=== PATIENT | female | born 1965 | race Caucasian/White ===

== ENCOUNTER 2019-12-25 13:58 | Outpatient (CLI) | payer OTHER, SELFPAY ==
--- NOTE | 2019-12-25 14:51 | ECG_ITS ---
Measurements Intervals [place] Rate: 73 P: 46 TX: 139 QRS: 18 QRSD: 91 T: 56 QT: 356 QTc: 394 Interpretive Statements SINUS RHYTHM DELAYED PRECORDIAL R/S TRANSITION BORDERLINE T WAVE ABNORMALITY- ANTERIOR LEADS BASELINE ARTIFACT- I, II, III, AVR, AVL, AVF BORDERLINE ECG Electronically Signed On 12-25-2019 15:02:15 CDT by Herberth Romero D.O.
[2019-12-25 15:35] LABS: Basophils Percent Auto 0.4 % (0.2-1.2); Eosinophils Absolute Auto 0.3 K/mm3 (0-0.3); Eosinophils Percent Auto 4.6 % (0-4.4); Hematocrit 41.8 % (37.0-47.0); Hemoglobin 13.7 g/dL (12.0-15.0); Immature Granulocyte Absolute 0.02 K/mm3 (0.00-0.031); Immature Granulocyte Percent A 0.4 % (0-0.5); Lymphocytes Absolute Auto 2.15 K/mm3 (0.9-3.2); Lymphocytes Percent Auto 38.1 % (18.3-44.2); Mean Corpuscular HGB Conc 32.8 g/dl (32-36); Mean Corpuscular Hemoglobin 30.1 pg (26-34); Mean Corpuscular Volume 91.9 fl (80-100); Mean Platelet Volume 9.5 fl (7.4-10.4); Monocytes Absolute Auto 0.4 K/mm3 (0.1-0.6); Monocytes Percent Auto 6.5 % (2.6-8.5); Neutrophils Absolute Auto 2.8 K/mm3 (1.3-6.7); Platelet Count Result 308 k/mm3 (150-375); Red Blood Count 4.55 M/mm3 (4.2-5.4); Red Cell Distribution Width 13.2 % (11.5-14.5); White Blood Count 5.7 K/mm3 (4.5-10.0)
[2019-12-25 15:47] LABS: Glucose 120 mg/dL (65-105)
[2019-12-25 15:49] LABS: Estimated Glomerular Filt Rate > 60
[2019-12-25 17:05] LABS: Hemoglobin A1C 5.3 % (<5.7)
== END 2019-12-25 13:59 | disposition home or self-care (01) ==
PROVIDERS: PCP Family Medicine; Visit Provider Orthopaedic Surgery
DX: M17.12 Unilateral primary osteoarthritis, left knee (principal); R94.31 Abnormal electrocardiogram [ECG] [EKG]
CPT/HCPCS: 36415; 82040; 82565; 82947; 83036; 85025; 87081; 93005

== ENCOUNTER 2020-01-16 00:35 | Outpatient (CLI) | payer OTHER, SELFPAY ==
[2020-01-16 18:03] LABS: SARS-CoV-2 RNA PCR Negative
== END 2020-01-16 00:36 | disposition home or self-care (01) ==
LOC: ANHCOVIDDT 00:35
PROVIDERS: Visit Provider Orthopaedic Surgery
DX: Z01.812 Encounter for preprocedural laboratory examination (principal); Z20.828 Contact with and (suspected) exposure to other viral communicable diseases
CPT/HCPCS: 87635; C9803; U0003

== ENCOUNTER 2020-01-20 14:11 | Observation (INO) | payer OTHER, SELFPAY ==
[2019-12-25 14:12] VITALS: BMI 33.1
[2019-12-25 14:20] VITALS: BP 154/85; PULSE 82; RESP 18; TEMP 36.8; O2SAT 99
[2020-01-19] VITALS (12 sets, daily range): BP systolic 113–160; BP diastolic 60–89; PULSE 61–105; RESP 12–20; TEMP 36.3–36.8; O2SAT 96–100
[2020-01-19] MEDS: LACTATED RINGERS 1,000 ML 30 ML IV CONT ×2 (06:24→10:19)
[2020-01-19] MEDS: ACETAMINOPHEN 500 MG TABLET 1000 MG PO (06:25)
[2020-01-19] MEDS: KETOROLAC 15 MG/ML VIAL (*BKC) IV PUSH ×3 (06:27→17:45)
[2020-01-19] MEDS: TRANEXAMIC ACID 1,000MG/ISO100 1,000 MG/100 ML BAG 200 MG IVPB (06:27)
--- NOTE | 2020-01-19 07:24 | WPDHPUPDATE1 ---
History and Physical Update Update Date/Time: 01/19/20 07:24 History and Physical has been reviewed, including an updated exam of the patient. There are NO changes in the patient's condition. Risks, benefits, and alternatives have been discussed and questions answered. Patient agrees to proceed with procedure.
--- NOTE | 2020-01-19 07:31 | WPDANESPNB ---
Anes - Peripheral Nerve Block Date/Time: 01/19/20 07:31 I have discussed with the patient/family/POA the placement of a peripheral nerve block for post-operative pain management, including associated risks, benefits, complications, and side effects. Alternative methods of post-operative analgesia were detailed. Questions were solicited and answers provided to the satisfaction of the patient/family/POA. Time-Out: A pre-procedural Time-Out was completed immediately before starting the procedure and confirmed: Patient Identification, Site, Procedure, Patient Position and the Availability of Requisite Equipment. Clinical Indications: Acute post-operative pain management requested by the operative surgeon. Nerve Block Insertion Note Anes-nerve block: adductor canal left Patient position: supine Skin prep: chlorhexidine Needle: 22 gauge, stimulating, insulated echogenic needle. Needle length: 80 mm Technique: ultrasound Technique comment: mid 2mg fent 100mcg, poor visualization with U/S no picture taken. Injectate: bupivacaine 0.5% with epi 5 mcg/ml (30ml) and dexamethasone (mg) (4mg) Observations: tolerated well Complications: none Procedure start time:: 718 Procedure end time:: 727
[2020-01-19] MEDS: ceFAZolin 2 GM/D5W 50 ML 2 GM/50 ML BAG IVPB (07:34)
--- NOTE | 2020-01-19 10:48 | PM.PROC ---
Procedure Note - Detailed Date of procedure: 01/19/20 Pre-op diagnosis: left knee OA Post-op diagnosis: same Procedure performed: Total knee arthroplasty Description of procedure: Press-Fit arthroplasty. High demand implants. Due to significant medial femoral and tibial erosion, a 16 mm polyethylene was used despite minimal bony resections. A very large medial release was required. Small bony stature particularly in the AP dimension. Bone quality excellent. Femur was placed at 4? external rotation. 7 mm distal femoral resection, and very minimal medial bony excision on the tibia. Implants: Jennifer Triathlon size 2 press-fit femur, size 3 Tritanium press fit tibia, 16mm PS X3, polyethylene insert, 32 mm asymmetric Tritanium metal backed patellar component. Anesthesia: GETA and regional (subsartorial nerve block) Surgeon: Jacob Jesus MD Drains: No Complications: None Findings: OPERATIVE DETAILS: The patient was given a nerve block preoperatively, and then brought to the operating room. A general anesthetic was administered. The leg was prepped and draped in the usual sterile fashion. The limb was elevated and the tourniquet inflated to 300 mmHg during initial exposure. A longitudinal incision was created along the medial border of the patella and patellar tendon, and standard medial parapatellar approach to the knee was performed. A large medial release was taken. The knee was then flexed. The osteophytes were carefully removed. The intramedullary guide was placed in the femoral canal. The distal femoral resection was then taken with the oscillating saw. The collateral ligaments were carefully protected. The tibia was carefully exposed. The jig was applied, and the proximal tibia was resected at 3 degrees according to preoperative plan. The knee was balanced in extension. Appropriate releases were taken where needed. The very large medial release was required. The anterior cruciate ligament and meniscal remnants were removed. The posterior cruciate ligament was preserved initially. Later it was elected to proceed with a posterior stabilized component, and the posterior cruciate ligament was excised. The patella was measured. Patellar resection was carried out with the oscillating saw. The lug holes drilled. The femur was sized and rotation assessed using a combination of gap balancing, posterior referencing, and the AP axis. The 4 in 1 cutting block was used to finish the femoral cuts after equal gaps were assured. The lug holes were drilled. The osteophytes were carefully removed from the back of the knee. The knee was copiously irrigated periodically throughout the procedure. The meniscal remnants were removed. The spacer block was used to confirm equal flexion and extension gaps. Further releases were performed as needed. A small needle release was performed with the 18 gauge needle and 5 entries into the MCL. The tibia was sized and broached. The bony surfaces were prepared for cementing with pulsatile lavage. The real tibial component was impacted into position followed by press fitting the femoral component. The patella component was press-fit. Patellar tracking was carefully assessed. No additional releases were required. The wound was closed with #1 Vycril suture, #2 Quill suture, 0-Quill suture, and 2-0 Quill suture followed by Steri-Strips. A sterile bulky dressing was applied. Meticulous hemostasis was maintained throughout the procedure. The aquamantis device was utilized. There were no complications. The patient was extubated and brought to the recovery room in stable condition after the application of sterile dressing with Chevy bandage.
--- NOTE | 2020-01-19 11:21 | WPDANESEPPF ---
Anes - Initial Pre Proc Eval Procedure: Operation Date: 01/19/20 07:30 Proposed Procedures p Left Total Knee Arthroplasty - Jacob Jesus MD Date/Time: 01/19/20 11:21 Surgeon: aJcob Jesus MD Pre Op Diagnosis: left knee OA Patient Data Age: 54 Gender: F Height: 5 ft 6 in Weight: 90.5 kg Last Vital Signs Temp 36.3 C L 01/19/20 10:19 Pulse 85 01/19/20 11:15 Resp 12 01/19/20 11:00 BP 124/81 01/19/20 11:15 Pulse Ox 96 01/19/20 11:15 Allergies Allergy/AdvReac Type Severity Reaction Status Date / Time No Known Allergies Allergy Verified 01/19/20 07:18 Home Medications Medication Instructions Recorded Confirmed Type naproxen sodium 220 mg capsule 440 mg PO QAM 11/20/19 01/19/20 History utlyloewltbb-Gx-kshl-minerals 1 tablet PO DAILY 12/25/19 01/19/20 History [Multiple Vitamin, Womens] tramadol 50 mg PO BID PRN 12/25/19 01/19/20 History Laboratory Tests 01/19/20 07:11 Blood Type O Positive Antibody Screen Negative Patient hx anesthesia problems: none Family hx anesthesia problems: none PMFSH Past Medical History Medical History Osteoarthritis of both knees Osteoarthritis of left knee Osteoarthritis of right knee Surgical History Surgical History History of laparoscopic cholecystectomy (~1994) History of vaginal hysterectomy (~2008) A&P Repair, TVT Family History Family History Father Hypertension Family history of diabetes mellitus in first degree relative Family history of arthritis Mother Hypertension Family history of arthritis Sibling Family history of lung cancer Social History Social History Smoking status: Never smoker Alcohol intake: current Substance use: never Living arrangements: with family Spiritual care concerns: No Anes - Eval Final PreProcedure Day of Procedure 01/19/20 11:21 Patient weight: overweight Heart: regular rate and rhythm Lungs: clear to auscultation Airway: Mallampati scale class II Neurological: alert and oriented Last oral intake: >/= 8 hours ASA classification: II Emergent: no Anesthetic plan: proceed Anesthesia type and monitoring: general LMA and standard monitoring Other findings: late entry Informed Consent: The patient's anesthetic plan and its attendant risks and benefits were discussed with the patient/family/POA. Questions were solicited and answers provided to the satisfaction of the patient/family/POA.
[2020-01-19] MEDS: diphenhydrAMINE HCl INJ 50 MG/ML VIAL IV PUSH ×2 (12:42→19:57)
[2020-01-19] MEDS: ASPIRIN 81 MG ENTERIC TABLET PO (17:44)
[2020-01-19] MEDS: DOCUSATE SODIUM 100 MG CAPSULE PO (17:44)
--- NOTE | ~2020-01-20 | XR_ITS ---
EXAMINATION: XR knee LT 2V DATE: 01/19/2020 11:02 CDT INDICATION: Postop knee replacement TECHNIQUE: 2 views left knee FINDINGS: There is a left total knee arthroplasty in expected position. Subcutaneous gas with fluid and air in the joint are consistent with recent surgery. No evidence of periprosthetic fracture. IMPRESSION: 1. Recent left total knee arthroplasty. Reviewed, dictated and finalized at location B.
[2020-01-20 00:02] VITALS: BP 101/52; PULSE 66; RESP 16; TEMP 36.4; O2SAT 99
[2020-01-20] MEDS: KETOROLAC 15 MG/ML VIAL (*BKC) IV PUSH ×3 (00:10→12:21)
[2020-01-20 04:38] VITALS: BP 113/75; PULSE 59; RESP 15; TEMP 36.1; O2SAT 100
[2020-01-20 05:33] LABS: Basophils Percent Auto 0.1 % (0.2-1.2); Eosinophils Percent Auto 0.1 % (0-4.4); Hematocrit 37.4 % (37.0-47.0); Hemoglobin 12.1 g/dL (12.0-15.0); Immature Granulocyte Absolute 0.04 K/mm3 (0.00-0.031); Immature Granulocyte Percent A 0.4 % (0-0.5); Lymphocytes Absolute Auto 1.94 K/mm3 (0.9-3.2); Lymphocytes Percent Auto 19.4 % (18.3-44.2); Mean Corpuscular HGB Conc 32.4 g/dl (32-36); Mean Corpuscular Hemoglobin 29.5 pg (26-34); Mean Corpuscular Volume 91.2 fl (80-100); Mean Platelet Volume 9.4 fl (7.4-10.4); Monocytes Absolute Auto 0.7 K/mm3 (0.1-0.6); Monocytes Percent Auto 7.1 % (2.6-8.5); Neutrophils Absolute Auto 7.3 K/mm3 (1.3-6.7); Neutrophils Percent Auto 72.9 % (45.5-73.1); Platelet Count Result 307 k/mm3 (150-375); Red Cell Distribution Width 13.2 % (11.5-14.5)
[2020-01-20 05:53] LABS: Anion Gap 5 mmol/L (8-16); Blood Urea Nitrogen 12 mg/dL (7-17); Calcium 8.8 mg/dL (8.4-10.2); Carbon Dioxide 27 mmol/L (22-30); Chloride 104 mmol/L (98-107); Estimated CRCL calculation 123 ml/min; Estimated Glomerular Filt Rate > 60; Glucose 123 mg/dL (65-105); Potassium 3.8 mmol/L (3.4-5.0); Sodium 136 mmol/L (137-145)
[2020-01-20] MEDS: DOCUSATE SODIUM 100 MG CAPSULE PO ×2 (08:12→16:51)
[2020-01-20] MEDS: ASPIRIN 81 MG ENTERIC TABLET PO ×2 (08:12→16:51)
[2020-01-20] MEDS: THERAPEUTIC MULTIVITAMINS/MINERALS TAB (*BKC) 1 TABLET PO (08:12)
[2020-01-20 10:00] VITALS: BP 115/58; PULSE 65; RESP 19; TEMP 36.6; O2SAT 100
--- NOTE | 2020-01-20 13:07 | P.PNAN_ITS ---
Anes - Prog Note Post-Op Date/Time: 01/20/20 13:07 Cardiovascular status: normal Respiratory status: normal Airway patency: baseline Mental status: baseline Post-Op hydration status: normal Vital Signs: Last Vital Signs Temp 36.6 C 01/20/20 10:00 Pulse 65 01/20/20 10:00 Resp 19 01/20/20 10:00 BP 115/58 L 01/20/20 10:00 Pulse Ox 100 01/20/20 10:00 Pain Score (VAS): 4 I/O: Intake & Output 01/19/20 01/20/20 01/20/20 23:59 07:59 15:59 Intake Total 370 640 420 Output Total 225 100 Balance 370 415 320 Laboratory Tests 01/20/20 05:02 01/20/20 05:02 01/20/20 01/20/20 05:02 05:02 WBC 10.0 RBC 4.10 L Hgb 12.1 Hct 37.4 MCV 91.2 MCH 29.5 MCHC 32.4 RDW 13.2 Plt Count 307 MPV 9.4 Immature Gran % (Auto) 0.4 Neut % (Auto) 72.9 Lymph % (Auto) 19.4 [place] % (Auto) 7.1 Eos % (Auto) 0.1 Baso % (Auto) 0.1 L Lymph # (Auto) 1.94 [place] # (Auto) 0.7 H Eos # (Auto) 0.0 Baso # (Auto) 0.0 Abs Immat Gran (auto) 0.04 H Absolute Neuts (auto) 7.3 H Absolute Nucleated RBC 0.0 Nucleated RBC % 0.0 Sodium 136 L Potassium 3.8 Chloride 104 Carbon Dioxide 27 Anion Gap 5 L BUN 12 Creatinine 0.50 L Estim Creat Clear Calc 123 Estimated GFR > 60 Glucose 123 H Calcium 8.8 Post-procedural complaints: none Patient Feedback: Patient satisfied with anesthetic care.
--- NOTE | 2020-01-20 13:33 | PM.PNORT ---
Progress Note: A&P Assessment and Plan (1) Status post total knee replacement, left: Code(s): Z96.652 - Presence of left artificial knee joint Status: Acute Assessment and Plan: Postoperative day 1 status post total knee arthroplasty. Progressing appropriately. Continue physical therapy. Likely discharge tomorrow morning. Subjective Subjective Date/Time Seen: 01/20/20 13:33 Interval history: Moderate discomfort. Progressing with physical therapy. Exam Narrative: Exam Narrative: Mild swelling. Range of motion 5-95 degrees. No hemarthrosis. No hematoma. Calf nontender. Distal neurologic status intact. Objective Data Vital Signs Vital Signs: Vital Signs - 24 hr 01/19/20 13:35 01/19/20 17:47 01/19/20 20:39 Temperature 36.8 C 36.6 C 36.5 C Pulse Rate 61 77 72 Respiratory Rate 16 16 16 Blood Pressure 130/62 113/65 124/67 Pulse Oximetry 100 100 100 01/20/20 00:02 01/20/20 04:38 01/20/20 10:00 Temperature 36.4 C L 36.1 C L 36.6 C Pulse Rate 66 59 L 65 Respiratory Rate 16 15 19 Blood Pressure 101/52 L 113/75 115/58 L Pulse Oximetry 99 100 100 Intake/Output Intake/Output: Intake & Output 01/17/20 01/18/20 01/19/20 01/20/20 23:59 23:59 23:59 23:59 Intake Total 820 1060 Output Total 325 Balance 820 735 Meds/Results Medications: Active Medications Generic Name Dose Route Start Last Admin Trade Name Freq PRN Reason Stop Dose Admin Aspirin 81 mg 01/19/20 17:00 01/20/20 08:12 Aspirin Ec PO 81 mg BID JOHANNA Administration Diazepam 5 mg 01/19/20 11:19 Valium Po PO Q8H PRN Spasms Diphenhydramine HCl 50 mg 01/19/20 12:34 01/19/20 19:57 Benadryl Inj IV PUSH 50 mg Q6HR PRN Administration Itching Docusate Sodium 100 mg 01/19/20 17:00 01/20/20 08:12 Colace Capsule PO 100 mg BID JOHANNA Administration Multivitamins/Calcium 1 tablet 01/20/20 09:00 01/20/20 08:12 Therapeutic Multivitamins/Minerals PO 1 tablet DAILY JOHANNA Administration Naloxone HCl 0.1 mg 01/19/20 11:19 Narcan IV PUSH Q2M PRN Opiate Reversal Ondansetron HCl 4 mg 01/19/20 11:19 Zofran Inj IV PUSH Q4H PRN Nausea And Vomiting Oxycodone HCl 5 mg 01/19/20 11:19 01/19/20 19:57 Roxicodone Ir Tablet PO 5 mg Q4H PRN Administration Pain Rated 4-6 Oxycodone HCl 10 mg 01/19/20 11:19 01/20/20 12:31 Roxicodone Ir Tablet PO 10 mg Q4H PRN Administration Pain Rated 7-10 Tramadol HCl 50 mg 01/19/20 11:19 Ultram PO Q4H PRN Pain Rated 1-3 Radiology Results: ITS Impressions Knee X-Ray 01/19/20 10:48 IMPRESSION: 1. Recent left total knee arthroplasty. Labs Labs: Laboratory Results - last 24 hr 01/20/20 01/20/20 05:02 05:02 WBC 10.0 RBC 4.10 L Hgb 12.1 Hct 37.4 MCV 91.2 MCH 29.5 MCHC 32.4 RDW 13.2 Plt Count 307 MPV 9.4 Immature Gran % (Auto) 0.4 Neut % (Auto) 72.9 Lymph % (Auto) 19.4 [place] % (Auto) 7.1 Eos % (Auto) 0.1 Baso % (Auto) 0.1 L Lymph # (Auto) 1.94 [place] # (Auto) 0.7 H Eos # (Auto) 0.0 Baso # (Auto) 0.0 Abs Immat Gran (auto) 0.04 H Absolute Neuts (auto) 7.3 H Absolute Nucleated RBC 0.0 Nucleated RBC % 0.0 Sodium 136 L Potassium 3.8 Chloride 104 Carbon Dioxide 27 Anion Gap 5 L BUN 12 Creatinine 0.50 L Estim Creat Clear Calc 123 Estimated GFR > 60 Glucose 123 H Calcium 8.8
[2020-01-20 14:00] VITALS: BP 112/56; PULSE 74; RESP 17; TEMP 37.1; O2SAT 100
[2020-01-20 20:00] VITALS: BP 110/59; PULSE 85; RESP 18; TEMP 36.4; O2SAT 100
[2020-01-20] MEDS: diazePAM 5 MG TABLET PO (20:01)
[2020-01-21] VITALS (8 sets, daily range): BP systolic 101–130; BP diastolic 54–68; PULSE 76–96; RESP 16–20; TEMP 36.3–36.9; O2SAT 98–100
[2020-01-21] MEDS: MEPERIDINE HCL INJ (*CRX) 100 MG/ML AMPUL IM ×7 (02:19→22:00)
--- NOTE | 2020-01-21 06:25 | PC.NURSE ---
Dr. Jesus called and informed patient is again having severe pain that was unrelieved by oral pain medications and required a second dose of IM demerol 45 minutes following PO 10mg oxycodone. MD informed of blood pressure trends and current blood pressure (101/54). MD ordered to continue to monitor pain following demerol admin and to allow patient to break post-op positional protocol for a short time to alleviate pain.
[2020-01-21] MEDS: DOCUSATE SODIUM 100 MG CAPSULE PO ×2 (08:02→17:19)
[2020-01-21] MEDS: THERAPEUTIC MULTIVITAMINS/MINERALS TAB (*BKC) 1 TABLET PO (08:02)
[2020-01-21] MEDS: ASPIRIN 81 MG ENTERIC TABLET PO ×2 (08:02→16:31)
[2020-01-21] MEDS: diazePAM 5 MG TABLET PO ×2 (08:06→17:19)
--- NOTE | 2020-01-21 08:24 | PC.NURSE ---
Called to Dr. Jesus's office to notify MD and PA of patients pain control issues overnight/this morning. During morning assessment, patient is complaining that pain is uncontrolled with oxycodone use, currently rating it 4/10. During shift supervisor rn, RN had given her two doses of IM Demerol and this seemed to help. Spoke to FRANCISCO Young in regards to pain medication orders. Patient already requesting next dose of Demerol and she just received it at 0610. FRANCISCO Young stated she would come up and see patient and discuss options with Dr. Jesus. Per Hector, patient may receive next dose of Demerol when it is due (0910).
--- NOTE | 2020-01-21 08:51 | PCPTNOTE ---
Attempted to see patient for PT at this time, however patient refused due to pain.
--- NOTE | 2020-01-21 09:47 | PCPTNOTE ---
Attempted to see patient for PT a second time this morning, however patient refused due to feeling sleepy and wanting to rest a little.
--- NOTE | 2020-01-21 12:00 | PC.NURSE ---
Per Dr. Jesus, to control pain alternate between Demerol, Oxycodone, and Valium PRN. Will monitor patient.
--- NOTE | 2020-01-21 12:23 | P.PNOP_ITS ---
Progress Note: A&P Assessment and Plan (1) Status post total knee replacement, left: Code(s): Z96.652 - Presence of left artificial knee joint Status: Acute Assessment and Plan: Severe pain last night. Not controlled with p.o. medication. Better controlled today with multimodal pain management. Anticipate discharge tomorrow. Subjective Subjective Date/Time Seen: 01/21/20 12:23 Interval history: * Severe pain last night and this morning. Improvement with Valium and Demerol in addition to the oxycodone. Exam Narrative: Exam Narrative: * Wound clean dry and intact. Thigh soft. No hematoma. Calf nontender. Neurologic status intact. Patient is alert and oriented. Somewhat drowsy. Appears more comfortable. Objective Data Vital Signs Vital Signs: Vital Signs - 24 hr 01/20/20 14:00 01/20/20 20:00 01/21/20 00:00 Temperature 37.1 C 36.4 C 36.8 C Pulse Rate 74 85 96 Respiratory Rate 17 18 18 Blood Pressure 112/56 L 110/59 L 101/54 L Pulse Oximetry 100 100 100 01/21/20 02:02 01/21/20 05:33 01/21/20 08:07 Temperature 36.5 C 36.3 C L 36.5 C Pulse Rate 87 85 77 Respiratory Rate 20 20 16 Blood Pressure 110/55 L 101/57 L 108/64 Pulse Oximetry 100 100 99 Intake/Output Intake/Output: Intake & Output 01/18/20 01/19/20 01/20/20 01/21/20 23:59 23:59 23:59 23:59 Intake Total 820 1300 150 Output Total 525 200 Balance 820 775 -50 Meds/Results Medications: Active Medications Generic Name Dose Route Start Last Admin Trade Name Freq PRN Reason Stop Dose Admin Aspirin 81 mg 01/19/20 17:00 01/21/20 08:02 Aspirin Ec PO 81 mg BID JOHANNA Administration Diazepam 5 mg 01/19/20 11:19 01/21/20 08:06 Valium Po PO 5 mg Q8H PRN Administration Spasms Diphenhydramine HCl 50 mg 01/19/20 12:34 01/19/20 19:57 Benadryl Inj IV PUSH 50 mg Q6HR PRN Administration Itching Docusate Sodium 100 mg 01/19/20 17:00 01/21/20 08:02 Colace Capsule PO 100 mg BID JOHANNA Administration Meperidine HCl 100 mg 01/21/20 02:05 01/21/20 09:15 Demerol IM 100 mg Q3H PRN Administration Breakthrough Pain Multivitamins/Calcium 1 tablet 01/20/20 09:00 01/21/20 08:02 Therapeutic Multivitamins/Minerals PO 1 tablet DAILY JOHANNA Administration Naloxone HCl 0.1 mg 01/19/20 11:19 Narcan IV PUSH Q2M PRN Opiate Reversal Ondansetron HCl 4 mg 01/19/20 11:19 Zofran Inj IV PUSH Q4H PRN Nausea And Vomiting Oxycodone HCl 5 mg 01/19/20 11:19 01/19/20 19:57 Roxicodone Ir Tablet PO 5 mg Q4H PRN Administration Pain Rated 4-6 Oxycodone HCl 10 mg 01/19/20 11:19 01/21/20 11:34 Roxicodone Ir Tablet PO 10 mg Q4H PRN Administration Pain Rated 7-10 Tramadol HCl 50 mg 01/19/20 11:19 Ultram PO Q4H PRN Pain Rated 1-3 Radiology Results: ITS Impressions Knee X-Ray 01/19/20 10:48 IMPRESSION: 1. Recent left total knee arthroplasty.
--- NOTE | 2020-01-21 12:26 | P.DS_ITS ---
DS: Admitting Diagnosis Admitting Diagnosis Admitting Diagnosis: left knee OA DS: Discharge Diagnosis Discharge Diagnosis (1) Status post total knee replacement, left: Code(s): Z96.652 - Presence of left artificial knee joint Status: Acute DS: Summary Hospital Course Reason for hospitalization: Total knee arthroplasty. Hospital Course: Significant pain on postoperative day 2. Required IM Demerol. Progressed appropriately with therapy. Status at Discharge Functional status at discharge: uses cane/walker Overall status at discharge: patient is progressing back to baseline Time Spent with Patient Time attestation: Total time spent providing and/or coordinating discharge serv ices: Exam Const: General: no acute distress Resp: Effort & Inspection: normal respiratory effort Skin: Other: Wound healing well. Mepilex dressing intact. No hematoma or drai nage. Neuro: Motor exam (neuro): 5/5 motor strength present throughout Sensory Exam: normal sensation Psych: Mental Status: mental status grossly normal Speech and movement: Normal speech and movement present Discharge Plan Discharge Attending physician on discharge: Jacob Jesus Discharging Clinician: Jacob Jesus Anticipated Discharge Date/Time: 01/22/20 10:00 Patient Disposition: Home, Self-Care Activity: september shower Diet: as tolerated Wound Care Instructions: follow printed instructions Discharge Instructions: See instruction sheet. Patient Instructions: Antibiotic Form, Precautions after Total Joint Repla cement Surgery (GEN), Knee Replacement (GEN) Follow-up/Referrals: Jcaob Jesus MD [Physician] - Discharge Medications: No Action naproxen sodium [Aleve] 220 mg capsule 440 mg PO QAM RF: 0 tramadol 50 mg tablet 50 mg PO BID PRN (Reason: pain) RF: 0 Multiple Vitamin, Womens Tablet 1 tablet PO DAILY RF: 0 Date of admission: 01/20/20 14:11 Primary Care Provider: UNKNOWN,DOCTOR Admitting Provider: Jacob Jesus Attending physician on admission: Jacob Jesus Quality VTE Prophylaxis VTE prophylaxis: mechanical ordered (JOSELYN laughlin and Gonzalez)
--- NOTE | 2020-01-21 13:07 | PCOTNOTE ---
Attempted therapy session with patient at 0830 and 0940 this morning, but patient was in too much pain and refused therapy. Checked back with patient at 13:05 and patient was very drowsy/lethargic and confused, thinking she was dreaming, but after becoming more oriented, patient declined therapy, including ADLs, transfers and functional activities.
--- NOTE | 2020-01-21 14:19 | PCPTNOTE ---
Attempted to see patient for PT, however patient declined.
[2020-01-22] MEDS: diazePAM 5 MG TABLET PO (01:12)
[2020-01-22 02:00] VITALS: BP 117/65; PULSE 86; RESP 20; TEMP 36.8; O2SAT 98
[2020-01-22] MEDS: MEPERIDINE HCL INJ (*CRX) 100 MG/ML AMPUL IM ×2 (04:54→08:03)
[2020-01-22] MEDS: THERAPEUTIC MULTIVITAMINS/MINERALS TAB (*BKC) 1 TABLET PO (08:03)
[2020-01-22] MEDS: ASPIRIN 81 MG ENTERIC TABLET PO (08:03)
[2020-01-22] MEDS: DOCUSATE SODIUM 100 MG CAPSULE PO (08:03)
--- NOTE | 2020-01-22 09:33 | PM.PNORT ---
Progress Note: A&P Assessment and Plan (1) Status post total knee replacement, left: Code(s): Z96.652 - Presence of left artificial knee joint Status: Acute Assessment and Plan: Patient ready for discharge. Pain mandible. Discussed the importance of bending and straightening the knee. Rest, ice, compression, elevation for pain. Patient agreed that she will not take the Percocet and Valium at the same time. Patient aware she needs to wear the compression socks for 3 week and take a baby aspirin 81 mg b.i.d. for 2 weeks for DVT prophylaxis. Patient will call the office if any concerns. Follow-up in office in 3 weeks. Subjective Subjective Date/Time Seen: 01/22/20 09:33 Patient states pain was better last night then the previous. She has persistent pain however this is manageable. Pain in the left knee and radiates up the hip. She states she is ready to go home. Patient will call the office if any concerns. Exam Narrative: Exam Narrative: Wound clean dry and intact. Thigh soft. No hematoma. Calf nontender. Neurologic status intact. Patient is alert and oriented. Somewhat drowsy. Appears comfortable. Objective Data Vital Signs Vital Signs: Vital Signs - 24 hr 01/21/20 12:30 01/21/20 14:00 01/21/20 18:50 Temperature 97.5 F L Pulse Rate 78 76 84 Respiratory Rate 18 Blood Pressure 130/67 120/66 119/68 Pulse Oximetry 98 100 100 01/21/20 22:00 01/22/20 02:00 Temperature 98.4 F 98.2 F Pulse Rate 90 86 Respiratory Rate 20 20 Blood Pressure 101/59 L 117/65 Pulse Oximetry 98 98 Intake/Output Intake/Output: Intake & Output 01/19/20 01/20/20 01/21/20 01/22/20 23:59 23:59 23:59 23:59 Intake Total 820 1300 390 120 Output Total 525 200 Balance 820 775 190 120 Meds/Results Medications: Active Medications Generic Name Dose Route Start Last Admin Trade Name Freq PRN Reason Stop Dose Admin Aspirin 81 mg 01/19/20 17:00 01/22/20 08:03 Aspirin Ec PO 81 mg BID JOHANNA Administration Diazepam 5 mg 01/19/20 11:19 01/22/20 01:12 Valium Po PO 5 mg Q8H PRN Administration Spasms Diphenhydramine HCl 50 mg 01/19/20 12:34 01/19/20 19:57 Benadryl Inj IV PUSH 50 mg Q6HR PRN Administration Itching Docusate Sodium 100 mg 01/19/20 17:00 01/22/20 08:03 Colace Capsule PO 100 mg BID JOHANNA Administration Multivitamins/Calcium 1 tablet 01/20/20 09:00 01/22/20 08:03 Therapeutic Multivitamins/Minerals PO 1 tablet DAILY JOHANNA Administration Naloxone HCl 0.1 mg 01/19/20 11:19 Narcan IV PUSH Q2M PRN Opiate Reversal Ondansetron HCl 4 mg 01/19/20 11:19 Zofran Inj IV PUSH Q4H PRN Nausea And Vomiting Oxycodone HCl 5 mg 01/19/20 11:19 01/22/20 06:14 Roxicodone Ir Tablet PO 5 mg Q4H PRN Administration Pain Rated 4-6 Oxycodone HCl 10 mg 01/19/20 11:19 01/22/20 01:12 Roxicodone Ir Tablet PO 10 mg Q4H PRN Administration Pain Rated 7-10 Tramadol HCl 50 mg 01/19/20 11:19 Ultram PO Q4H PRN Pain Rated 1-3 Radiology Results: ITS Impressions Knee X-Ray 01/19/20 10:48 IMPRESSION: 1. Recent left total knee arthroplasty. Quality VTE Prophylaxis VTE prophylaxis: mechanical ordered (JOSELYN hose and SCDs)
[2020-01-22 10:47] VITALS: O2SAT 98
== END 2020-01-22 11:39 | disposition home or self-care (01) ==
LOC: ANHSURGERY 14:19 → ANH2MED 14:19
PROVIDERS: Admitting Provider Orthopaedic Surgery; Visit Provider Orthopaedic Surgery
PROC: (CPT 27447; principal; 2020-01-19 07:30)
DX: M17.12 Unilateral primary osteoarthritis, left knee (principal); G89.18 Other acute postprocedural pain; Z79.899 Other long term (current) drug therapy
CPT/HCPCS: 27447; 64447; 36415; 73560; 80048; 85025; 86850; 86900; 86901; 97110; 97116; 97161; 97165; 97530; A9270; C1776; G0378; J0131; J0171; J0690; J1100; J1170; J1200; J1885; J2175; J2250; J2270; J2405; J2704; J2795; J3010; J7120

== ENCOUNTER 2020-03-12 01:21 | Outpatient (CLI) | payer OTHER, SELFPAY ==
[2020-03-12 18:04] LABS: SARS-CoV-2 RNA PCR Negative
== END 2020-03-12 01:22 | disposition home or self-care (01) ==
LOC: ANHCOVIDDT 01:22
PROVIDERS: Visit Provider Orthopaedic Surgery
DX: Z01.818 Encounter for other preprocedural examination (principal); Z20.828 Contact with and (suspected) exposure to other viral communicable diseases
CPT/HCPCS: 87635; C9803; U0003

== ENCOUNTER 2020-03-15 02:51 | Day surgery (SDC) | payer OTHER, SELFPAY ==
[2020-03-14 09:10] VITALS: BMI 30.9
[2020-03-15] VITALS (8 sets, daily range): BP systolic 114–162; BP diastolic 55–84; PULSE 62–73; RESP 12–21; TEMP 36–36.4; O2SAT 100
[2020-03-15] MEDS: LACTATED RINGERS 1,000 ML 30 ML IV CONT (06:55)
[2020-03-15] MEDS: KETOROLAC 15 MG/ML VIAL (*BKC) IV PUSH (07:01)
--- NOTE | 2020-03-15 07:55 | WPDHPUPDATE1 ---
History and Physical Update Update Date/Time: 03/15/20 07:55 History and Physical has been reviewed, including an updated exam of the patient. There are NO changes in the patient's condition. Risks, benefits, and alternatives have been discussed and questions answered. Patient agrees to proceed with procedure.
--- NOTE | 2020-03-15 08:04 | WPDANESEPP ---
Anes - Eval Pre Procedure Procedure: Operation Date: 03/15/20 08:30 Proposed Procedures p Manipulation Under Anesthesia Of Left Knee Arthroplasty - Jacob Jesus MD Date/Time: 03/15/20 08:04 Pre Op Diagnosis: Contracture Of Left Knee Patient Data Age: 54 Gender: F Height: 5 ft 6 in Weight: 90.6 kg Last Vital Signs Temp 96.8 F L 03/15/20 06:38 Pulse 66 03/15/20 06:38 Resp 18 03/15/20 06:38 BP 142/84 H 03/15/20 06:38 Pulse Ox 100 03/15/20 06:38 Allergies Allergy/AdvReac Type Severity Reaction Status Date / Time No Known Allergies Allergy Verified 03/15/20 07:07 Home Medications Medication Instructions Recorded Confirmed Type naproxen sodium 220 mg capsule 440 mg PO QAM PRN 11/20/19 03/15/20 History Multiple Vitamin, Womens 1 tablet PO DAILY 12/25/19 03/15/20 History oxycodone-acetaminophen 5 mg-325 1 - 2 tablet PO Q4-6H PRN #40 03/10/20 03/15/20 Rx mg tablet tablet MDD 8 tablets Patient hx anesthesia problems: none Family hx anesthesia problems: none PMFSH Past Medical History Medical History Aftercare following joint replacement surgery Contracture, left knee GERD (gastroesophageal reflux disease) Osteoarthritis of both knees Osteoarthritis of left knee Osteoarthritis of right knee Surgical History Surgical History H/O: hysterectomy History of laparoscopic cholecystectomy (~1994) History of vaginal hysterectomy (~2008) A&P Repair, TVT Status post total knee replacement, left Family History Family History Father Hypertension Family history of diabetes mellitus in first degree relative Family history of arthritis Mother Hypertension Family history of arthritis Sibling Family history of lung cancer Social History Social History Smoking status: Never smoker Alcohol intake: current Substance use: never Spiritual care concerns: No Exam Day of Procedure 03/15/20 08:04 Patient weight: overweight Heart: regular rate and rhythm Lungs: clear to auscultation Airway: Mallampati scale class II Neurological: alert and oriented
--- NOTE | 2020-03-15 08:22 | WPDANESEPPF ---
Anes - Initial Pre Proc Eval Procedure: Operation Date: 03/15/20 08:30 Proposed Procedures p Manipulation Under Anesthesia Of Left Knee Arthroplasty - Jacob Jesus MD Date/Time: 03/15/20 08:22 Surgeon: Jacob Jesus MD Pre Op Diagnosis: Contracture Of Left Knee Patient Data Age: 54 Gender: F Height: 5 ft 6 in Weight: 90.6 kg Last Vital Signs Temp 36.0 C L 03/15/20 06:38 Pulse 66 03/15/20 06:38 Resp 18 03/15/20 06:38 BP 142/84 H 03/15/20 06:38 Pulse Ox 100 03/15/20 06:38 Allergies Allergy/AdvReac Type Severity Reaction Status Date / Time No Known Allergies Allergy Verified 03/15/20 07:07 Home Medications Medication Instructions Recorded Confirmed Type naproxen sodium 220 mg capsule 440 mg PO QAM PRN 11/20/19 03/15/20 History Multiple Vitamin, Womens 1 tablet PO DAILY 12/25/19 03/15/20 History oxycodone-acetaminophen 5 mg-325 1 - 2 tablet PO Q4-6H PRN #40 03/10/20 03/15/20 Rx mg tablet tablet MDD 8 tablets Patient hx anesthesia problems: none Family hx anesthesia problems: none PMFSH Past Medical History Medical History Aftercare following joint replacement surgery Contracture, left knee GERD (gastroesophageal reflux disease) Osteoarthritis of both knees Osteoarthritis of left knee Osteoarthritis of right knee Surgical History Surgical History H/O: hysterectomy History of laparoscopic cholecystectomy (~1994) History of vaginal hysterectomy (~2008) A&P Repair, TVT Status post total knee replacement, left Family History Family History Father Hypertension Family history of diabetes mellitus in first degree relative Family history of arthritis Mother Hypertension Family history of arthritis Sibling Family history of lung cancer Social History Social History Smoking status: Never smoker Alcohol intake: current Substance use: never Spiritual care concerns: No Anes - Eval Final PreProcedure Day of Procedure 03/15/20 08:22 Patient weight: overweight Heart: regular rate and rhythm Lungs: clear to auscultation Airway: Mallampati scale class II Neurological: alert and oriented Last oral intake: >/= 8 hours ASA classification: II Emergent: no Anesthetic plan: proceed Anesthesia type and monitoring: general LMA and standard monitoring Informed Consent: The patient's anesthetic plan and its attendant risks and benefits were discussed with the patient/family/POA. Questions were solicited and answers provided to the satisfaction of the patient/family/POA.
--- NOTE | 2020-03-15 08:48 | PM.PROC ---
Procedure Note - Detailed Date of procedure: 03/15/20 Pre-op diagnosis: Contracture Of Left Knee Post-op diagnosis: other (s/p total knee arthroplasty) Procedure performed: Manipulation under anesthesia, left knee Anesthesia: GLMA Surgeon: Jacob Jesus MD Estimated blood loss (mL): 0 Complications: No immediate complications Condition: stable Disposition: PACU Findings: The knee show range of motion 5? to 95? initially. Gentle manipulation allowed the knee to flex to 120?. Release of contracture through the anterior tissue was felt with palpable crepitus. No other unusual findings. No other instability or post manipulation crepitus.
[2020-03-15] MEDS: HYDROmorphone HCL INJ (*CRX) 1 MG/ML SYR 0.5 MG IV PUSH (09:11)
[2020-03-15] MEDS: oxyCODONE HCL (*CRX) 5 MG TAB IR PO (10:17)
== END 2020-03-15 10:33 | disposition home or self-care (01) ==
PROVIDERS: Visit Provider Orthopaedic Surgery
PROC: (CPT 27570; principal; 2020-03-15 08:30)
DX: M24.562 Contracture, left knee (principal); Z96.652 Presence of left artificial knee joint; E66.3 Overweight; Z68.32 Body mass index [BMI] 32.0-32.9, adult
CPT/HCPCS: 27570; A9270; J1100; J1170; J1885; J2250; J2405; J2704; J3010; J7120

== ENCOUNTER 2020-04-06 13:30 | Outpatient (RCR) | payer OTHER, SELFPAY ==
--- NOTE | 2020-02-03 16:24 | PTOPEVAL ---
INITIAL PHYSICAL THERAPY EVALUATION and PLAN OF CARE Thank you for referring Sarah Colón to [facility] [place].? Sarah is scheduled to be seen for physical therapy? 2x/week for 6weeks. Please review, sign, date and return this plan of care ADRIANA. I agree with and certify that the following plan of care is medically necessary. Referring Physician Date Admitting Provider: Attending Provider: Jacob Jesus MD Referring Provider: *PT Outpatient Evaluation Start: 02/03/20 14:50 Freq: Status: Active Protocol: Document 02/03/20 14:45 DELFINO (Rec: 02/03/20 16:22 DELFINO [id number]) Therapy Assessment Status Assessment Status Assessment Status Evaluation Outpatient Past Medical History Past Medical History Source of Past Medical History Recalled from Previous Visit, Confirmed with Patient/Family Neurological History Hx Neurological Disorders No Significant History Cardiovascular History Hx Cardiac Disorders No Significant History Respiratory History Hx Respiratory Disorders No Significant History Gastrointestinal History Hx Cholecystectomy Yes Hx Gastroesophageal Reflux Disease Yes: AT INTERVALS Genitourinary History Hx Other Genitourinary Disorders Yes: TVT WITH HYST Musculoskeletal History Hx Arthritis Yes: LT KNEE Hx Back Injury Yes Hx Back Pain Yes: SI JOINT IMFLAMATION/ PAIN- CHIROPRACTOR Hx Joint Replacement Yes: L TKA - 01/19/2020 Hx Orthopedic Surgery Yes: S/P RT SHOULDER SURGERY Hx Other Musculoskeletal Disorders Yes: LEFT KNEE OA Hematological History Hx Hematological Disorders No Significant History Endocrine History Hx Endocrine Disorders No Significant History HEENT History Hx HEENT Disorders No Significant History Integumentary History Hx Skin Disorders No Significant History Reproductive History Hx Hysterectomy Yes Psychosocial History Hx Psychiatric Disorders No Significant History Pain History History of Any Previous or Ongoing No Significant History Instance of Pain Anesthesia History Hx Anesthesia Reactions No Significant History Evaluation Information Problem Diagnosis L TKA Onset 01/19/2020 Subjective Information 2 night hospitalization - Sarah Query Text:As Reported By Patient/ reports that MD told her that Family her knee was pretty bad - did press fit surgery for her TKA MD wanted 2 weeks of HEP before starting out patient PT . Bending knee has been the hardest. Glue used for the skin c
--- NOTE | 2020-02-24 08:11 | PCPTNOTE ---
Patient called & cancelled scheduled appointment this date due to car problems.
--- NOTE | 2020-03-09 10:35 | PCPTNOTE ---
Patient called & cancelled scheduled appointment this date due to her 's appointment.
--- NOTE | 2020-03-11 12:12 | PTOPEVAL ---
PHYSICAL THERAPY RE-EVALUATION and UPDATED PLAN OF CARE Thank you for referring Sarah Colón to [facility] [place].? Sarah has been seen in physical therapy?x 11 visits. Good progress towards goals have been met - especially with L hip and knee strengthening, upgraded gait pattern and functional abilities. ROM is not where it needs to be - she has not tolerated passive stretching well. Recommending continuation of PT 2x/week for 4 weeks with increased emphasis on further increase in ROM. Please review, sign, date and return this plan of care ADRIANA. I agree with and certify that the following plan of care is medically necessary. Referring Physician Date Admitting Provider: Attending Provider: Jacob Jesus MD Referring Provider: *PT Outpatient Evaluation Start: 02/03/20 14:50 Freq: Status: Active Protocol: Document 03/11/20 08:04 DELFINO (Rec: 03/11/20 09:01 DELFINO [id number]) Therapy Assessment Status Assessment Status Assessment Status Re-evaluation Evaluation Information Problem Subjective Information Sarah states that she doesn't Query Text:As Reported By Patient/ use her cane within the house. Family Stairs no difficulty. Saw Dr. Torres - going to do a manipulation to regain knee flexion. Was also told to get a heel lift for R side to help with L knee extension with ambulation. Pain Assessment Timing of Pain Assessment Timing of Pain Assessment Assessment Pain Scale Pain Scale Used Numeric (1 - 10) Self Report Pain Assessment Left Knee(s) Reported Pain Level 2 Pain Description Tightness Lowest Pain Intensity 1 Greatest Pain Intensity 6 Additional Pain Comments 6/10 pain occurs when knee flexion Pain Score Pain Score 2: Self Report Interventions Used Interventions Used By Clinicians Exercise,Ice Lower Extremity Range of Motion Knee Range of Motion Left Knee Flexion Range of Motion - Passive 100 Knee Extension Range of Motion - Active 3 Query Text: Knee Range of Motion Comments sitting 110 degrees Lower Extremity Muscle Strength Testing Hip Strength Left Hip Flexion Strength 5 Normal Hip Extension Strength 5 Normal Hip Abduction Strength 5 Normal Hip Medial Rotation Strength 5 Normal Hip Lateral Rotation Strength 5 Normal Knee Strength Left Knee Flexion Strength 5 Normal Knee Extension Strength 5 Normal Palpation Assessment Palpation Palpation edema still present at L knee. Good patellar and incisional mobility. Gait Assessment Gait Pattern As
--- NOTE | 2020-03-30 15:14 | PCPTNOTE ---
Patient called & cancelled scheduled appointment this date due to family emergency.
--- NOTE | 2020-04-06 14:43 | PTOPEVAL ---
PHYSICAL THERAPY DISCHARGE SUMMARY Thank you for referring Sarah Colón to [facility].? Sarah has been seen in PT x 18 visits. She has met goals set and is ready for discharge from PT to [facility]. I agree with Sarah's discharge from PT. Referring Physician Date Admitting Provider: Attending Provider: Jacob Jesus MD Referring Provider: *PT Outpatient Evaluation Start: 02/03/20 14:50 Freq: Status: Active Protocol: Document 04/06/20 13:35 DELFINO (Rec: 04/06/20 14:42 DELFINO [id number]) Therapy Assessment Status Assessment Status Assessment Status Discharge Evaluation Information Problem Subjective Information Sarah reports that she is still Query Text:As Reported By Patient/ having tightness with L knee. Family Yesterday had some increased L calf pain. Still has difficulty with sleeping - finding and staying in a comfortable position. Will also have back pain interfering with sleeping. Pain Assessment Timing of Pain Assessment Timing of Pain Assessment Assessment Pain Scale Pain Scale Used Numeric (1 - 10) Self Report Pain Assessment Left Knee(s) Reported Pain Level 1 Lowest Pain Intensity 0 Greatest Pain Intensity 4 Pain Score Pain Score 1: Self Report Interventions Used Interventions Used By Clinicians Exercise,Ice Lower Extremity Range of Motion Knee Range of Motion Left Knee Flexion Range of Motion - Active 125 Knee Extension Range of Motion - Active 0 Query Text: Knee Range of Motion Comments short sitting - 120 Lower Extremity Muscle Strength Testing Hip Strength Left Hip Flexion Strength 5 Normal Hip Extension Strength 5 Normal Hip Abduction Strength 5 Normal Hip Medial Rotation Strength 5 Normal Hip Lateral Rotation Strength 5 Normal Knee Strength Left Knee Flexion Strength 5 Normal Knee Extension Strength 5 Normal Balance Assessment Time Up Go (TUG) Timed Up and Go Test (TUG) (Seconds) 9 Assistive Devices None Gait Assessment Gait Pattern Assessment Other Gait Observations mild knee flexion present in stance phase of gait - increased knee flexion with swing phase, symmetrical stance/swing phases Stair Climbing Assessment Stair Climbing Assessment Stair Climbing Assistive Devices None Number of Steps Climbed (Steps) 4 Number of Repetitions (Repetitions) 1 Technique Alternating Steps Stair Climbing Direction
== END 2020-05-02 14:54 | disposition home or self-care (01) ==
LOC: ANHHIPT 13:30
PROVIDERS: Visit Provider Orthopaedic Surgery
DX: Z47.1 Aftercare following joint replacement surgery (principal); Z96.652 Presence of left artificial knee joint
CPT/HCPCS: 97110; 97161

== ENCOUNTER 2020-05-25 16:00 | Outpatient (CLI) | payer OTHER, SELFPAY ==
--- NOTE | ~2020-05-25 | MM_ITS ---
EXAMINATION: MM screening marina BI w farshad HISTORY: Screening mammogram TECHNIQUE: Craniocaudal and mediolateral oblique 3-D tomosynthesis images were obtained and synthetic 2-D images were generated. CAD analysis was submitted and interpreted. COMPARISON: 12/10/2018, 09/24/2017, 05/28/2016 bilateral digital screening mammogram examinations BREAST PARENCHYMAL COMPOSITION: The breasts are almost entirely fatty. FINDINGS: There is no evidence of suspicious mass, calcification, or architectural distortion to sugg est malignancy in either breast. There has been no suspicious interval change. IMPRESSION: 1. No mammographic evidence of malignancy. 2. Recommend routine screening mammography in one year. BI-RADS Category 1: Negative Reviewed, dictated and finalized at location A. ASS OPERATOR
== END 2020-05-25 16:01 | disposition home or self-care (01) ==
LOC: ANHIMG 16:03
PROVIDERS: Visit Provider Obstetrics & Gynecology Gynecology
DX: Z12.31 Encounter for screening mammogram for malignant neoplasm of breast (principal)
CPT/HCPCS: 77063; 77067

== ENCOUNTER 2021-12-06 06:42 | Emergency (ER) | payer OTHER, SELFPAY ==
--- NOTE | ~2021-12-06 | XR_ITS ---
EXAMINATION: XR thoracic spine 3V DATE: 12/06/2021 09:27 INDICATION: Mid back pain. Fall. TECHNIQUE: 3 views of thoracic spine on 4 radiographs were obtained. COMPARISON: Lumbar spine radiographs 11/28/17 FINDINGS: Bone alignment is normal. There is mild chronic anterior wedging of multiple thoracic verte bral bodies. There is mildly decreased disc height at multiple levels in mid thoracic spine. There ar e endplate osteophytes at most levels. Surgical clips in the right upper quadrant are likely from cho lecystectomy. IMPRESSION: 1. Mild thoracic spondylosis. Reviewed, dictated and finalized at location A.
--- NOTE | ~2021-12-06 | XR_ITS ---
EXAMINATION: XR hip LT 2V w AP pelvis DATE: 12/06/2021 08:36 INDICATION: Low back pain with radiation to the left hip TECHNIQUE: Anteroposterior view of the pelvis and anteroposterior and frog-leg lateral views of the l eft hip were obtained. COMPARISON: 12/21/2015 FINDINGS: Normal alignment. No fracture. Bilateral hip joint spaces are normal. Mild osteitis pubis and mild bi lateral sacroiliac osteoarthritis. A few phleboliths in the pelvis. IMPRESSION: 1. No acute osseous abnormality. Reviewed, dictated and finalized at location A.
--- NOTE | ~2021-12-06 | XR_ITS ---
EXAMINATION: XR lumbar spine min 4V DATE: 12/06/2021 08:36 INDICATION: Low back pain post fall TECHNIQUE: Anteroposterior, lateral, and bilateral oblique views of the lumbar spine, and cone-down l ateral view of the lumbosacral junction were obtained. COMPARISON: Lumbar spine MR dated 11/28/2017 alignment is normal. FINDINGS: Alignment is normal. Chronic mild anterior wedging at T12 and minimal anterior wedging at T12 with pr ominent Schmorl's nodes along the superior endplate. No new vertebral body height loss or other acute fractures identified. Moderate disc height loss at T12-L1 and L5-S1. Mild to moderate disc height lo ss at L3-L4 and mild disc height loss at L2-L3. No pars interarticularis defects. Multilevel mild hoda ateral lumbar facet osteoarthritis. IMPRESSION: 1. Mild to moderate lumbar spondylosis no acute osseous abnormality. Reviewed, dictated and finalized at location A.
--- NOTE | ~2021-12-06 | CT_ITS ---
EXAMINATION: CT cervical spine wo con DATE: 12/06/2021 08:38 INDICATION: Upper back pain post fall TECHNIQUE: Computed tomography (CT) of the cervical spine was performed without intravenous contrast. Automated exposure control and iterative reconstruction technique were employed. The dose-length pro duct was 428.06 mGy-cm. COMPARISON: None FINDINGS: Straightening of the normal cervical lordosis. No spondylolisthesis or facet subluxation. Vertebral b star heights are normal. No fracture. Moderate disc height loss at C4-C5 and mild disc height loss at C2-C3, C3-C4 and C6-C7. Although assessment is more limited on CT than MRI. The small disc bulges res ulting in mild central canal stenosis at C3-C4, C4-C5 and C7-T1. Multilevel facet osteoarthritis in t he cervical and upper thoracic spine, mild to moderate severity on the left at C7-T1, on the right at C6-C7 through T1-T2 as well as at T3-T4 and mild at the remaining levels on the left and right . Mil d right-sided and moderate left-sided uncovertebral osteoarthritis at C4-C5 resulting in mild bilater al neural foraminal stenosis. Additional mild neural foraminal stenosis resulting from the facet oste oarthritis on the right at T3-T4. Small amount of heterotopic ossification in the soft tissues superi or to the C5 and C6 spinous processes and to the right of the C3 spinous process. Single small sclero tic likely bone island at the right lateral mass of C5. Cervical soft tissues are otherwise unremarka ble. Visualized portions of the paranasal sinuses, mastoid air cells, middle ear cavities, airway and apices of lungs are all clear. IMPRESSION: 1. Mild to moderate cervical spondylosis. No acute osseous abnormality. Reviewed, dictated and finalized at location A.
[2021-12-06 06:56] VITALS: BP 169/106; PULSE 74; RESP 16; TEMP 36.2; O2SAT 99
[2021-12-06] MEDS: HYDROcodone/acetaminophen (*CRX) 5-325 MG TABLET 1 TAB PO (08:15)
[2021-12-06 08:21] VITALS: BP 119/70; PULSE 88; RESP 19; O2SAT 97
[2021-12-06 10:05] VITALS: BP 133/89; PULSE 88; RESP 19; O2SAT 97
--- NOTE | 2021-12-06 10:11 | ED.FALL ---
HPI - Fall General Chief Complaint: Fall Stated Complaint: L LEG PAIN S/P FALL Time Seen by Provider: 12/06/21 07:28 Source: RN notes reviewed History of Present Illness HPI Narrative: Patient presents emergency department from work for a fall. Patient states she was walking when she slipped on something with her left foot falling coming down onto her left side. She states she landed on her left hip and buttocks states that since that time she has had pain in her left hip as well as in her neck and throughout her back she denies striking her head or loss of consciousness she has any chest pain shortness of breath denies any numbness or tingling in the extremities or any other symptoms Related Data Home Medications Medication Instructions Recorded Confirmed naproxen sodium 220 mg capsule 440 mg PO QAM PRN Pain 11/20/19 03/15/20 (Aleve) pdyfgopcoszs-Gc-bicw-minerals 1 tablet PO DAILY 12/25/19 03/15/20 (Multiple Vitamin, Womens tablet) Allergies Allergy/AdvReac Type Severity Reaction Status Date / Time No Known Allergies Allergy Verified 12/06/21 08:16 Review of Systems Review of Systems: Gen.: Denies fevers or chills ENT: Denies congestion Respiratory: Denies shortness of breath or cough CV: Denies chest pain or palpitations GI: Denies abdominal pain nausea, emesis or diarrhea denies incontinence Musculoskeletal: See HPI Neuro: Denies loss of consciousness, headache or numbness or tingling in the extremities Skin: Denies rash Except as documented, all other systems reviewed and negative [facility] Past Medical History Medical History Aftercare following joint replacement surgery Contracture, left knee GERD (gastroesophageal reflux disease) Osteoarthritis of both knees Osteoarthritis of left knee Osteoarthritis of right knee Surgical History Surgical History H/O: hysterectomy History of laparoscopic cholecystectomy (~1994) History of vaginal hysterectomy (~2008) A&P Repair, TVT Status post total knee replacement, left Family History Family History Father Hypertension Family history of diabetes mellitus in first degree relative Family history of arthritis Mother Hypertension Family history of arthritis Sibling Family history of lung cancer Social History Social History Smoking status: Never smoker Alcohol intake: current Substance use: never Spiritual care concerns: No Exam Narrative: APPEARANCE: No acute distress, nontoxic, resting in bed EYES: EOMI, PERRL HEENT: Normocephalic, atraumatic, OMM Neck: Supple, no midline tenderness palpation tender palpation bilateral perigee muscles C5-7 RESPIRATORY: No respiratory distress Clear to auscultation bilaterally with no rhonchi wheezing or rales. CARDIOVASCULAR: Regular rate and rhythm without murmurs rubs or gallops. ABDOMINAL: Soft, nontender, nondistended, no rebound or guarding MUSCULOSKELETAl: Moves all extremities. No clubbing, cyanosis or edema. Tender palpation left anterior lateral hip pain with flexion greater than 45 degrees no tenderness left knee or ankle dorsalis pedis pulse 2+ neurovascular intact Back: No midline thoracic lumbar tenderness palpation tender to palpation diffusely to the bilateral paravertebral muscles in the thoracic and lumbar spine NEURO: Awake and alert. Following commands, speech normal, no focal deficits SKIN:: Warm, dry. No rashes lesions or abrasions PSYCHIATRIC: Normal affect/mood, Course Course Emergency Course: Patient able get up and ambulate in ED with no difficulty Discussed with patient results of workup and diagnosis. Discussed need for follow-up with primary care, proper use of medication, and reasons to return to the emergency department. Patient understands and agrees to current
== END 2021-12-06 10:05 | disposition home or self-care (01) ==
PROVIDERS: Emergency Provider Emergency Medicine
DX: S70.02XA Contusion of left hip, initial encounter (principal); S16.1XXA Strain of muscle, fascia and tendon at neck level, initial encounter; M54.50 Low back pain, unspecified; K21.9 Gastro-esophageal reflux disease without esophagitis; M19.90 Unspecified osteoarthritis, unspecified site; W01.0XXA Fall on same level from slipping, tripping and stumbling without subsequent striking against object, initial encounter
CPT/HCPCS: 72072; 72110; 72125; 73502; 99284; A9270

== ENCOUNTER 2021-12-21 16:09 | Outpatient (CLI) | payer OTHER, SELFPAY ==
--- NOTE | ~2021-12-21 | MM_ITS ---
EXAMINATION: MM screening marina BI w farshad HISTORY: Screening mammogram TECHNIQUE: Craniocaudal and mediolateral oblique 3-D tomosynthesis images were obtained and synthetic 2-D images were generated. CAD analysis was submitted and interpreted. COMPARISON: 05/25/2020, 12/10/2018, 09/24/2017 bilateral screening mammogram examinations BREAST PARENCHYMAL COMPOSITION: The breasts are almost entirely fatty. FINDINGS: There is no evidence of suspicious mass, calcification, or architectural distortion to sugg est malignancy in either breast. There has been no suspicious interval change. IMPRESSION: 1. No mammographic evidence of malignancy. 2. Recommend routine screening mammography in one year. BI-RADS Category 1: Negative Reviewed, dictated and finalized at location A.
== END 2021-12-21 16:10 | disposition home or self-care (01) ==
PROVIDERS: Visit Provider Obstetrics & Gynecology Gynecology
DX: Z12.31 Encounter for screening mammogram for malignant neoplasm of breast (principal)
CPT/HCPCS: 77063; 77067

== ENCOUNTER 2022-04-12 17:39 | Outpatient (CLI) | payer OTHER, SELFPAY ==
--- NOTE | ~2022-04-12 | CT_ITS ---
EXAMINATION: CT LE RT wo con DATE: 04/12/2022 18:25 INDICATION: Right knee osteoarthritis. Preop planning. TECHNIQUE: Computed tomography (CT) of the right lower limb was performed without intravenous contras t. Automated exposure control and iterative reconstruction technique were employed. The dose-length p roduct was 1776.01 mGy-cm. COMPARISON: Right knee radiographs 08/18/2019 FINDINGS: There is mild right hip osteoarthritis. There is varus angulation at the knee. There is pos terior subluxation of tibia with respect to distal femur. There is severe osteoarthritis of medial co mpartment and moderate osteoarthritis of lateral and patellofemoral compartments. There is a moderate -sized knee joint effusion. There is an osteochondral lesion of medial talar dome. IMPRESSION: 1. Severe right knee osteoarthritis. 2. Moderate-sized right knee joint effusion. 3. Mild right hip osteoarthritis. 4. Osteochondral lesion of medial talar dome. Reviewed, dictated and finalized at location A. ARCH ENVIRONMENTAL ENGINEER
== END 2022-04-12 17:40 | disposition home or self-care (01) ==
LOC: ANHIMG 17:45
PROVIDERS: Visit Provider Orthopaedic Surgery
DX: M17.11 Unilateral primary osteoarthritis, right knee (principal); M16.11 Unilateral primary osteoarthritis, right hip; M25.461 Effusion, right knee
CPT/HCPCS: 73700

== ENCOUNTER 2022-05-04 13:45 | Outpatient (CLI) | payer OTHER, SELFPAY ==
[2022-05-04 13:58] LABS: Hematocrit 44.3 % (37.0-47.0)
[2022-05-04 14:11] LABS: Albumin Level 4.3 g/dL (3.5-5.1); Estimated Glomerular Filt Rate > 60; Glucose 104 mg/dL (65-110)
[2022-05-04 14:13] LABS: Hemoglobin A1C 5.5 % (<5.7)
--- NOTE | 2022-05-04 14:16 | ECG_ITS ---
Measurements Intervals [employer] Rate: 67 P: 44 WY: 148 QRS: 35 QRSD: 89 T: 68 QT: 373 QTc: 394 Interpretive Statements SINUS RHYTHM NORMAL ELECTROCARDIOGRAM COMPARED TO ECG 12/25/2019 15:20:30 NO SIGNIFICANT CHANGES Electronically Signed On 05-04-2022 15:06:32 MEDICATION CARE MANAGER by Matt Pires M.D.
== END 2022-05-04 13:46 | disposition home or self-care (01) ==
PROVIDERS: Visit Provider Orthopaedic Surgery
DX: M17.11 Unilateral primary osteoarthritis, right knee (principal); Z01.818 Encounter for other preprocedural examination
CPT/HCPCS: 36415; 82040; 82565; 82947; 83036; 85014; 85018; 93005

== ENCOUNTER 2022-06-11 07:57 | Outpatient (CLI) | payer OTHER, SELFPAY ==
[2022-06-11 09:01] LABS: Basophils Percent Auto 0.6 % (0.2-1.2); Eosinophils Absolute Auto 0.2 K/mm3 (0-0.3); Eosinophils Percent Auto 2.5 % (0-4.4); Hematocrit 44.9 % (37.0-47.0); Hemoglobin 14.3 g/dL (12.0-15.0); Immature Granulocyte Absolute 0.02 K/mm3 (0.00-0.031); Immature Granulocyte Percent A 0.3 % (0-0.5); Lymphocytes Absolute Auto 2.23 K/mm3 (0.9-3.2); Lymphocytes Percent Auto 35.1 % (18.3-44.2); Mean Corpuscular HGB Conc 31.8 g/dl (32-36); Mean Corpuscular Hemoglobin 30.2 pg (26-34); Mean Corpuscular Volume 94.9 fl (80-100); Monocytes Absolute Auto 0.5 K/mm3 (0.1-0.6); Monocytes Percent Auto 7.7 % (2.6-8.5); Neutrophils Absolute Auto 3.4 K/mm3 (1.3-6.7); Neutrophils Percent Auto 53.8 % (45.5-73.1); Platelet Count Result 293 k/mm3 (150-375); Red Blood Count 4.73 M/mm3 (4.2-5.4); Red Cell Distribution Width 13.7 % (11.5-14.5); White Blood Count 6.4 K/mm3 (4.5-10.0)
[2022-06-11 09:14] LABS: Urine Cotinine NEGATIVE
== END 2022-06-11 07:58 | disposition home or self-care (01) ==
PROVIDERS: Visit Provider Orthopaedic Surgery
DX: M17.11 Unilateral primary osteoarthritis, right knee (principal); Z01.818 Encounter for other preprocedural examination
CPT/HCPCS: 80307; 85025; 87081

== ENCOUNTER 2022-07-03 01:16 | Day surgery (SDC) | payer OTHER, SELFPAY ==
[2022-06-11 08:08] VITALS: BMI 33.9
--- NOTE | 2022-06-11 08:22 | PC.NURSE ---
Report to the Outpatient Waiting Room, entrance under the green pavilion located off [facility], at time __0600 on date __07/03/22 . Planned Procedure Time: __30 . Time changes happen often and if your time is changed the preop area will call you the afternoon before. - You and your visitor will be asked to self-screen and do not enter if you have any COVID symptoms. - Only one visitor is requested with a max of two and NO children visitors are allowed at this time. - The patient visitor may be requested to leave or wait in car when not with patient due to distancing restrictions. - A mask is optional within the hospital at this time. Patients may have clear liquids (water, carbonated beverages, clear teas, apple juice) until 3 hours prior to surgery with a maximum of 20 ounces. - No food from midnight until time of surgery - Infants may have breast milk until 4 hours before surgery, formula 6 hours prior to surgery. - Children will be allowed to drink immediately following surgery. If applicable, please bring a bottle or sippy cup to assist with drinking. Juice, water, soda, and popsicles are readily available. For infants on formula, please bring formula the day of surgery. Pacifiers are allowed. Take the following medications with a SIP of water the morning of surgery: __NONE DO NOT STOP ANY OF YOUR OTHER PRESCRIPTION MEDICATIONS PRIOR TO SURGERY ?EXCEPT THE FOLLOWING Medications to discontinue per physician _MELOXICAM 7 DAYS PRE OP PER DR DAVIDSON LAST DOSE 06/25/22. ALL VITAMINS AND SUPPLEMENTS 3 DAYS PRE OP . LAST DOSE 06/29/22 MAY TAKE TYLENOL IF NEEDED FOR PAIN. TOTAL JOINT CLASS 06/20/22 AT 10 AM Please no make-up, nail maltese, hairspray, perfume, deodorant, or body powder the day of surgery. No jewelry (including any body piercings) or valuables the day of surgery, leave them at home. Please take a shower or bath the night before, or the morning of, surgery with an antibacterial soap. Wear comfortable, loose fitting clothing. Children are encouraged to wear pajamas. - Jewelry must be removed prior to entering the operating room. Rings and piercings that are not removed may be cut off. - The hospital will not accept responsibility for valuables. - Please leave all valuables, including medications, at home the day of surgery. If you are going home after surgery, a licensed pick up driver must drive you home. - NO public transportation without another adult if you receive anesthesia. - We recommend that an adult stay with you for 24 hours following discharge. - We also recommend that you do not drive, make important decision, drink alcoholic beverages, or take any drugs that were not prescribed by your health care provider for at least 24 hours after your discharge time. For Pediatric surgeries, we recommend two adults accompany the child home. Follow any additional instructions given to you from your surgeon. If you or anyone in your household have experienced Covid symptoms in the past week, please notify your surgeon or the nurse liaison at the phone number below for possible testing. VERBAL AND WRITTEN instructions given to ___PATIENT and asked if any additional questions and then verbalized understanding. Patient advised to call surgeon office or pre surgery nurse liaison [phone] if any additional questions.
[2022-06-11 08:35] VITALS: BP 147/83; PULSE 69; RESP 18; TEMP 36.6; O2SAT 100
--- NOTE | 2022-07-02 09:22 | WPDANESEPPF ---
Anes - Initial Pre Proc Eval Procedure: Operation Date: 07/03/22 07:30 Proposed Procedures p Right Custom Total Knee Arthroplasty - Jacob Jesus MD Date/Time: 07/02/22 09:22 Surgeon: Jacob Jesus MD Pre Op Diagnosis: primary OA right knee Patient Data Age: 56 Gender: F Height: 1.68 m Weight: 95.4 kg Last Vital Signs Temp 36.6 C 06/11/22 08:35 Pulse 69 06/11/22 08:35 Resp 18 06/11/22 08:35 BP 147/83 H 06/11/22 08:35 Pulse Ox 100 06/11/22 08:35 O2 Del Method Room Air 06/11/22 08:35 Allergies Allergy/AdvReac Type Severity Reaction Status Date / Time No Known Allergies Allergy Verified 07/03/22 07:04 Home Medications Medication Instructions Recorded Confirmed Type bcfcbwrjhjgi-Xz-mszr-minerals 1 tablet PO DAILY 12/25/19 06/11/22 History (Multiple Vitamin, Womens tablet) meloxicam 15 mg tablet 15 mg PO DAILY #60 tabs 05/01/22 06/11/22 Rx tramadol 50 mg tablet See Rx Instructions PO BID PRN 05/28/22 06/11/22 Rx pain #60 tabs omeprazole magnesium 20 mg 20 mg PO PRN PRN Heartburn 06/11/22 06/11/22 History tablet,delayed release (Prilosec OTC) Patient hx anesthesia problems: none Family hx anesthesia problems: none Results Review: All pre-operative results and documents have been reviewed as part of the pre-operative evaluation. [facility] Past Medical History Medical History Aftercare following joint replacement surgery Contracture, left knee GERD (gastroesophageal reflux disease) Osteoarthritis of both knees Osteoarthritis of left knee Osteoarthritis of right knee Surgical History Surgical History H/O: hysterectomy History of laparoscopic cholecystectomy (~1994) History of vaginal hysterectomy (~2008) A&P Repair, TVT Status post total knee replacement, left Family History Family History Father Hypertension Family history of diabetes mellitus in first degree relative Family history of arthritis Mother Hypertension Family history of arthritis Sibling Family history of lung cancer Social History Social History (Updated 06/25/22 @ 08:00 by Miryam Jones) Smoking status: Never smoker Additional smoking assessment comments: DENIES ANY FORM OF TOBACCO USE Alcohol intake: current Substance use: never Lack of Transportation: No Lack of Food: Never True Current Housing: I Have Housing Concerned About Future Housing: No Difficulty Paying Gas/Electric Bills: No Difficulty Paying for Meds: No Currently Unemployed: No Education: Associate Degree Difficulty w/ Childcare or Family Care: No Living arrangements: with family Spiritual care concerns: No Anes - Eval Final PreProcedure Day of Procedure 07/02/22 09:22 Patient weight: obese Heart: regular rate and rhythm Lungs: clear to auscultation Airway: Mallampati scale class II Neurological: alert and oriented Last oral intake: >/= 8 hours ASA classification: II Emergent: no Anesthetic plan: proceed Anesthesia type and monitoring: general LMA and standard monitoring Results Review: All pre-operative results and documents have been reviewed as part of the pre-operative evaluation. Informed Consent: The patient's anesthetic plan and its attendant risks and benefits were discussed with the patient/family/POA. Questions were solicited and answers provided to the satisfaction of the patient/family/POA.
[2022-07-03] VITALS (16 sets, daily range): BP systolic 95–137; BP diastolic 47–84; PULSE 50–85; RESP 11–20; TEMP 36.2–36.7; O2SAT 93–100
--- NOTE | ~2022-07-03 | XR_ITS ---
EXAMINATION: [id number] DATE: 07/03/2022 11:02 BULK FLUIDS HANDLER INDICATION: Right total knee arthroplasty TECHNIQUE: 2 views right knee FINDINGS: There is a right total knee arthroplasty in expected position. Subcutaneous gas with fluid and air in the joint are consistent with recent surgery. No evidence of periprosthetic fracture. IMPRESSION: 1. Recent right total knee arthroplasty. Reviewed, dictated and finalized at location L. FLUIDS HANDLER
[2022-07-03] MEDS: ACETAMINOPHEN 500 MG TABLET 1000 MG PO (06:14)
[2022-07-03] MEDS: LACTATED RINGERS 1,000 ML 30 ML IV CONT ×2 (06:30→10:43)
[2022-07-03] MEDS: TRANEXAMIC ACID 1,000MG/ISO100 1,000 MG/100 ML BAG 200 MG IVPB (06:39)
[2022-07-03] MEDS: ONDANSETRON INJ 4 MG/2 ML VIAL IV PUSH (07:02)
--- NOTE | 2022-07-03 07:12 | WPDANESPNB ---
Anes - Peripheral Nerve Block Date/Time: 07/03/22 07:12 I have discussed with the patient/family/POA the placement of a peripheral nerve block for post-operative pain management, including associated risks, benefits, complications, and side effects. Alternative methods of post-operative analgesia were detailed. Questions were solicited and answers provided to the satisfaction of the patient/family/POA. Time-Out: A pre-procedural Time-Out was completed immediately before starting the procedure and confirmed: Patient Identification, Site, Procedure, Patient Position and the Availability of Requisite Equipment. Clinical Indications: Acute post-operative pain management requested by the operative surgeon. Nerve Block Insertion Note Anes-nerve block: adductor canal right Patient position: supine Skin prep: chlorhexidine Needle: 22 gauge, stimulating, insulated echogenic needle. Needle length: 80 mm Technique: ultrasound Injectate: bupivacaine 0.5% with epi 5 mcg/ml (30cc - no epi) Observations: tolerated well Complications: none Procedure start time:: 725 Procedure end time:: 729
--- NOTE | 2022-07-03 07:16 | WPDHPUPDATE1 ---
History and Physical Update Update Date/Time: 07/03/22 07:16 History and Physical has been reviewed, including an updated exam of the patient. There are NO changes in the patient's condition. Risks, benefits, and alternatives have been discussed and questions answered. Patient agrees to proceed with procedure.
[2022-07-03] MEDS: SCOPOLAMINE 1.5 MG PATCH TRANSDERM (07:21)
[2022-07-03] MEDS: ceFAZolin 2 GM/D5W 50 ML 2 GM/50 ML BAG IVPB ×3 (07:36→23:29)
[2022-07-03] MEDS: GENTAMICIN BONE CEMENT REFOBACIN 1 EACH TOPICAL (08:17)
[2022-07-03] MEDS: KETOROLAC 15 MG/ML VIAL (*BKC) IV PUSH (10:20)
[2022-07-03] MEDS: fentaNYL CITRATE INJ (*CRX) 100 MCG/2 ML VIAL 25 MCG IV PUSH ×4 (11:10→11:29)
[2022-07-03] MEDS: HYDROmorphone HCL INJ (*CRX) 1 MG/ML SYR 0.5 MG IV PUSH ×2 (11:34→11:42)
[2022-07-03] MEDS: SODIUM CHLORIDE 0.9% IV 1,000 ML 125 ML IV CONT (12:44)
[2022-07-03] MEDS: oxyCODONE HCL (*CRX) 5 MG TAB IR PO (13:28)
--- NOTE | 2022-07-03 13:54 | ADMGEN ---
This patient, Sarah Colón, was admitted to Medical Room 348-01. Patient/family oriented to hospital policies and general routines including ID bracelet, bed and alarms, visiting hours, pain management, procedures, bathroom and other care routines, personal items, smoking policy, room service/diet, and visiting hours. Information on how to activate the Rapid Response Team has been discussed. Patient/Family are encouraged to report perceived risks to care and to ask questions if they do not understand what they are told or what they should do.
--- NOTE | 2022-07-03 16:49 | P.OP_ITS ---
Procedure Note - Detailed Date of Procedure 07/03/22 Pre-op Diagnosis primary OA right knee Post-op Diagnosis Same Procedure Performed Total knee arthroplasty, right knee. Surgeon Jacob Jesus MD Shuttle Fitting Supervisor Oralia Tate PA-C Anesthesia General and Regional (Subsartorial block.) Findings Severe tricompartmental arthritis with primary disease in the medial compartment. Extensive erosions on the medial femur. Posterior stabilized some like us to implant with excellent fit. Description of Procedure Preoperative antibiotics were given. The limb was prepped and draped in the usual sterile fashion with a well-padded tourniquet high on the thigh. The limb was exsanguinated and the tourniquet inflated to 300 mmHg. A longitudinal incision was created just medial to the patella. A trivector approach to the knee was performed. Arthrotomy was taken down through the joint capsule. No significant releases were initially taken. The femur was exposed and the F1 jig was applied. The coring tool was used to remove the cartilage for the F2 jig to sit flush with the bone. The jig was pinned and the distal cut carefully taken. Caliper measurements confirmed appropriate bony resections according to the preoperative templated plan. The F4 cutting jig for the femur was applied, at the standard rotation. The AP and anterior chamfer cuts were taken. The F5 jig was applied and the posterior chamfer cuts were taken. The box cut was next taken. The posterior cruciate ligament was sacrificed. The tibia was prepared using the T1 jig, after removing cartilage for the jig contact points. Proper alignment was checked with the alignment donato. The tibia was cut using the T1u guide. Gap balancing was performed. Gap measurements were taken and the knee was trialed. Excellent alignment and soft tissue balancing was confirmed. Mild to moderate increased medial release was performed. The patella was cut for resurfacing. Three lug holes were drilled. Meniscal remnants were removed. The trial components were assembled. Excellent range of motion and proper soft tissue balancing were confirmed throughout the full range of motion. Patellar tracking was excellent. The knee was copiously irrigated periodically throughout the procedure. The real implants were cemented into position. Excess cement was carefully removed. The wound was closed in layers with interrupted #1 Vicryl suture, 2-0 strata fix suture, 0 strata fix suture, 2-0 strata fix suture. Steri-Strips placed on the skin with the knee flexed. Sterile bulky dressing applied. The patient was brought to the recovery room in stable condition. There were no complications. Physician visitor services assistant, Oralia Tate PA-C, required for surgery; including patient positioning, draping, tissue retraction, maintaining instrument position, wound closure, and dressing placement. Implants Conform[employer] Imprint total knee arthroplasty. Cemented. Posterior stabilized 7mm insert. 32 mm oval patella. Estimated Blood Loss -100.0 Drains No Complications No immediate complications Condition Stable Disposition PACU [facility] Billing Surgery - Charge Forward: Surgery Billing
[2022-07-03] MEDS: SENNA/DOCUSATE SODIUM TABLET 2 TAB PO (17:20)
[2022-07-03] MEDS: ASPIRIN 81 MG ENTERIC TABLET PO (17:20)
[2022-07-03] MEDS: MELOXICAM 7.5 MG TABLET PO (17:20)
[2022-07-03] MEDS: oxyCODONE HCL (*CRX) 5 MG TAB IR 10 MG PO ×2 (17:36→21:51)
[2022-07-04] MEDS: oxyCODONE HCL (*CRX) 5 MG TAB IR 10 MG PO ×3 (02:27→10:44)
[2022-07-04 05:28] LABS: Basophils Percent Auto 0.2 % (0.2-1.2); Eosinophils Percent Auto 0.1 % (0-4.4); Hematocrit 37.9 % (37.0-47.0); Hemoglobin 12.2 g/dL (12.0-15.0); Immature Granulocyte Absolute 0.03 K/mm3 (0.00-0.031); Immature Granulocyte Percent A 0.3 % (0-0.5); Lymphocytes Absolute Auto 2.59 K/mm3 (0.9-3.2); Lymphocytes Percent Auto 28.1 % (18.3-44.2); Mean Corpuscular HGB Conc 32.2 g/dl (32-36); Mean Corpuscular Volume 93.3 fl (80-100); Monocytes Absolute Auto 0.8 K/mm3 (0.1-0.6); Monocytes Percent Auto 9.1 % (2.6-8.5); Neutrophils Absolute Auto 5.7 K/mm3 (1.3-6.7); Neutrophils Percent Auto 62.2 % (45.5-73.1); Platelet Count Result 289 k/mm3 (150-375); Red Blood Count 4.06 M/mm3 (4.2-5.4); Red Cell Distribution Width 13.4 % (11.5-14.5); White Blood Count 9.2 K/mm3 (4.5-10.0)
[2022-07-04 05:35] LABS: Anion Gap 2 mmol/L (8-16); Blood Urea Nitrogen 12 mg/dL (7-17); Calcium 8.5 mg/dL (8.4-10.2); Carbon Dioxide 28 mmol/L (22-30); Chloride 108 mmol/L (98-107); Estimated CRCL calculation 123 ml/min; Estimated Glomerular Filt Rate > 60; Glucose 102 mg/dL (65-110); Potassium 4.4 mmol/L (3.4-5.0); Sodium 138 mmol/L (137-145)
[2022-07-04 06:20] VITALS: BP 92/50; PULSE 50; RESP 16; TEMP 36.4; O2SAT 100
[2022-07-04] MEDS: ceFAZolin 2 GM/D5W 50 ML 2 GM/50 ML BAG IVPB (06:27)
[2022-07-04] MEDS: ASPIRIN 81 MG ENTERIC TABLET PO (08:35)
[2022-07-04] MEDS: polyethylene glycoL 3350 17 GM POWD.PACK PO (08:35)
[2022-07-04] MEDS: MELOXICAM 7.5 MG TABLET PO (08:35)
[2022-07-04] MEDS: SENNA/DOCUSATE SODIUM TABLET 2 TAB PO (08:36)
[2022-07-04] MEDS: predniSONE 5 MG TABLET PO (08:36)
--- NOTE | 2022-07-04 09:35 | PM.DS ---
DS: Admitting Diagnosis Discharge Date 07/04/22 Admitting Diagnosis OA knee Right DS: Discharge Diagnosis Discharge Diagnosis (1) Status post total right knee replacement: Code(s): Z96.651 - Presence of right artificial knee joint Status: Acute (2) Aftercare following joint replacement surgery: Code(s): Z47.1 - Aftercare following joint replacement surgery Status: Acute Plan Postop day 1: Right total knee arthroplasty. Patient tolerated procedure well. No complications. Pain manageable with pain medication. No numbness or tingling. We had a lengthy discussion regarding postoperative wound care, limitations, expectations, and exercises. Patient shows good understanding. She has had initial physical therapy and is tolerating it well. DVT prophylaxis: 81 mg baby aspirin b.i.d. for 14 days. Pain medication: Percocet. Meloxicam. Prednisone. Patient has followup appointment with Dr. Jesus in 3 weeks. DS: Summary Hospital Course Reason for hospitalization: Total knee arthroplasty Hospital Course: Patient tolerated procedure well. Has had initial PT/OT. No complications. Pain well managed. Status at Discharge Functional status at discharge: uses cane/walker Overall status at discharge: patient is progressing back to baseline Time Spent with Patient Time attestation: Total time spent providing and/or coordinating discharge services: Exam Narrative: Overweight 56 y/o Female. Resting comfortably in bed. No acute distress. A&O x3. Wearing joleen wraps bilaterally. Dressing intact with no drainage. Moderate swelling. Small area of ecchymosis. No erythema. No hematoma. Good early range of motion. Calf nontender. Neurologic status intact. No varicosities. Distal pulses palpable. DS: Data Data Completed and Pending Labs on day of discharge: Labs from last 24 hours 07/04/22 07/04/22 05:13 05:13 WBC 9.2 RBC 4.06 L Hgb 12.2 Hct 37.9 MCV 93.3 MCH 30.0 MCHC 32.2 RDW 13.4 Plt Count 289 MPV 9.0 Immature Gran % (Auto) 0.3 Neut % (Auto) 62.2 Lymph % (Auto) 28.1 [place] % (Auto) 9.1 H Eos % (Auto) 0.1 Baso % (Auto) 0.2 Lymph # (Auto) 2.59 [place] # (Auto) 0.8 H Eos # (Auto) 0.0 Baso # (Auto) 0.0 Abs Immat Gran (auto) 0.03 Absolute Neuts (auto) 5.7 Absolute Nucleated RBC 0.0 Nucleated RBC % 0.0 Sodium 138 Potassium 4.4 Chloride 108 H Carbon Dioxide 28 Anion Gap 2 L BUN 12 Creatinine 0.50 L Estim Creat Clear Calc 123 Estimated GFR > 60 Glucose 102 Calcium 8.5 Discharge Plan Discharge Patient Disposition: Home, Self-Care Discharge Instructions: See green instruction sheets Stand Alone Forms: General Discharge Instructions Follow-up/Referrals: Oralia Tate PA [Physician Research Animal Attendant] - Discharge Medications: New meloxicam 15 mg tablet 15 mg PO DAILY Qty: 30 0RF Rx Instructions: Cut in half. Take 1/2 in morning and 1/2 at night. Take with food. Stop if stomach upset. aspirin 81 mg tablet,delayed release (DR/EC) 81 mg PO BID 14 Days Qty: 28 0RF prednisone 5 mg tablet 5 mg PO DAILY 21 Days Qty: 21 0RF oxycodone-acetaminophen 5-325 mg tablet 1 - 2 tablet PO Q4-6H MDD 6 PRN (Reason: pain) Qty: 30 0RF Continued Multiple Vitamin, Womens Tablet 1 tablet PO DAILY omeprazole magnesium [Prilosec OTC] 20 mg Tablet,Delayed Release (Dr/Ec) 20 mg PO PRN PRN (Reason: Heartburn) tramadol 50 mg tablet See Rx Instructions PO BID MDD 6 PRN (Reason: pain) Qty: 60 0RF Rx Instructions: 1-2 tablets PO twice a day PRN; Held meloxicam 15 mg tablet 15 mg PO DAILY Qty: 60 0RF Hold Instructions: Resume on 07/04/22. New script sent Rx Instructions: Cut pill in half. Take 1/2 in morning and 1/2 at night. Take with food. Stop if stomach upset. Do not take with other NSAIDs.
--- NOTE | 2022-07-04 09:49 | PCOTNOTE ---
Attempted to see patient this am, however patient already dressed herself this am. Pt reported being up to bathroom Seven times already. Pt had previous knee surgery and has no concerns as pertains to OT at this time prior to discharge.
== END 2022-07-04 12:00 | disposition home or self-care (01) ==
LOC: ANHSURGERY 09:54 → ANH3MED 12:31
PROVIDERS: Physician Assistant Surgical; Visit Provider Orthopaedic Surgery
PROC: (CPT 27447; principal; 2022-07-03 07:30)
DX: M17.11 Unilateral primary osteoarthritis, right knee (principal); G89.18 Other acute postprocedural pain; K21.9 Gastro-esophageal reflux disease without esophagitis; E66.9 Obesity, unspecified; Z68.33 Body mass index [BMI] 33.0-33.9, adult
CPT/HCPCS: 27447; 64447; 36415; 73560; 80048; 85025; 86850; 86900; 86901; 97110; 97116; 97161; 97165; A9270; C1713; C1776; J0131; J0171; J0690; J1100; J1170; J1885; J2250; J2270; J2405; J2704; J2795; J3010; J7030; J7120; J7512

== ENCOUNTER 2022-08-29 09:30 | Outpatient (RCR) | payer OTHER, SELFPAY ==
--- NOTE | 2022-07-17 15:46 | PTOPEVAL1 ---
Assessment and note entered by Christine Parra, PT Evaluation Information Assessment Status Evaluation Diagnosis right knee replacement Onset 07/03/22 Subjective Information First week was pretty rough. Had a nerve block and it wore off after she went home. Pain medication wasn't doing much, Valium was added Reported Pain Level Pain Score 5: Self Report Assessment PT Clinical Summary Pt presents 2 weeks s/p right total knee replacement. Demo's abnormal gait, swelling, reduced strength and ROM, and increased pain all appropriate for this phase of healing. Pt will benefit from physical therapy to addres deficits, and return pt to PLOF. Plan of Care Interventions Electrical Stimulation,Gait Training,Hot Pack/Cold Pack,Manual Therapy,Neuro Re-education,Patient/ Caregiver Educati,Therapeutic Activities, Therapeutic Exercise PT Services Indicated Yes Treatment Frequency and 2x weekly x 12 weeks Duration These treatments will address the objective and functional deficits as defined above. The patient will be advanced safely and appropriately in order for the patient to progress towards his/her prior level of function. Additional exercises will be introduced and as well as a comprehensive home exercise program upon discharge, if needed, ?to ensure carryover of functional gains achieved in the clinic. This treatment plan has been reviewed and agreement upon by the patient.
--- NOTE | 2022-07-20 10:13 | PCPTNOTE ---
Patient did not arrive to appointment this date. Called patient who states she got her times confused. Confirmed upcoming appointments.
--- NOTE | 2022-08-15 10:20 | PTOPPROG ---
Assessment and note entered by Christine Parra, PT Assessment Status Progress Report Diagnosis right knee replacement Onset 07/03/22 Subjective Information Reports feeling 60% improved overall. Is able to only take oxycodone and usually only once a day. Sometimes twice a day to sleep better Can be on her feet for about an hour without sitting currently Assessment PT Clinical Summary Pt is approx 6 weeks post total knee replacement, has attended therapy consistently since initial evaluation. She shows increased passive and active ROM of her knee 10-100 degrees with capsular end- feels, improved resisted muscle strength, and greatly improved gait overall. She no longer requires assistive device for safe ambulation and only demo's minimal gait abnormalities. She cont to require UEs to assist in sit>stand testing, demo's decreased ROM and strength overall, reports feeling only 60% improved overall. Thus pt will benefit from continued therapy to address deficits and return to PLOF Plan of Care Interventions Electrical Stimulation,Gait Training,Hot Pack/Cold Pack,Manual Therapy,Neuro Re-education,Patient/ Caregiver Educati,Therapeutic Activities, Therapeutic Exercise PT Services Indicated Yes Treatment Frequency and Cont POC 2x weekly x 4 weeks Duration These treatments will address the objective and functional deficits as defined above. The patient will be advanced safely and appropriately in order for the patient to progress towards his/her prior level of function. Additional exercises will be introduced and as well as a comprehensive home exercise program upon discharge, if needed, ?to ensure carryover of functional gains achieved in the clinic. This treatment plan has been reviewed and agreement upon by the patient.
--- NOTE | 2022-09-03 10:24 | PCPTNOTE ---
Patient called & cancelled scheduled appointment this date due to having to watch her grandchildren. Will reschedule within the week if a treatment session becomes available
--- NOTE | 2022-09-05 14:54 | PTOPDC ---
Assessment and note entered by Christine Parra, PT Assessment Status Discharge - Pt Not Present Diagnosis right knee replacement Onset 07/03/22 Subjective Information Reports feeling 60% improved overall. Is able to only take oxycodone and usually only once a day. Sometimes twice a day to sleep better Can be on her feet for about an hour without sitting currently Assessment PT Clinical Summary Pt is to receive a knee manipulation under [facility] post total knee replacement. She has attended therapy consistently with exception of a few weeks during a family emergency. s/p manipulation is a change in status. Pt will be evaluated at that time for diagnosis thus current POC will be discharged to prepare for new plan of care.
== END 2022-09-05 15:34 | disposition still patient (30) ==
LOC: ANHHIPT 09:30
PROVIDERS: Visit Provider Orthopaedic Surgery
DX: Z47.1 Aftercare following joint replacement surgery (principal); Z96.651 Presence of right artificial knee joint
CPT/HCPCS: 97014; 97110; 97140; 97161; G0283

== ENCOUNTER 2022-09-11 02:52 | Day surgery (SDC) | payer OTHER, SELFPAY ==
--- NOTE | 2022-09-04 11:23 | PC.NURSE ---
Addendum entered by Yamila Jones RN 09/04/22 11:32: MELOXICAM PER DR. DAVIDSON'S INSTRUCTIONS Original Note: Report to the Outpatient Waiting Room, entrance under the green pavilion located off [facility], at time 1230 on date 09/11/22. Planned Procedure Time: 1430. Time changes happen often and if your time is changed the preop area will call you the afternoon before. - You and your visitor will be asked to self-screen and do not enter if you have any COVID symptoms. - A mask is optional within the hospital at this time. Patients may have clear liquids (water, carbonated beverages, clear teas, apple juice) until 3 hours prior to surgery with a maximum of 20 ounces. - No food from midnight until time of surgery Take the following medications with a SIP of water the morning of surgery: PAIN PILL IF NEEDED DO NOT STOP ANY OF YOUR OTHER PRESCRIPTION MEDICATIONS PRIOR TO SURGERY EXCEPT THE FOLLOWING Medications to discontinue per physician: VITAMINS Date to take last dose: 09/07/22 Please no make-up, nail arabic, hairspray, perfume, deodorant, or body powder the day of surgery. No jewelry (including any body piercings) or valuables the day of surgery, leave them at home. Please take a shower or bath the night before, or the morning of, surgery with an antibacterial soap. Wear comfortable, loose fitting clothing. - Jewelry must be removed prior to entering the operating room. Rings and piercings that are not removed may be cut off. - The hospital will not accept responsibility for valuables. - Please leave all valuables, including medications, at home the day of surgery. If you are going home after surgery, a licensed furniture delivery driver must drive you home. - NO public transportation without another adult if you receive anesthesia. - We recommend that an adult stay with you for 24 hours following discharge. - We also recommend that you do not drive, make important decision, drink alcoholic beverages, or take any drugs that were not prescribed by your health care provider for at least 24 hours after your discharge time. Follow any additional instructions given to you from your surgeon. If you or anyone in your household have experienced Covid symptoms in the past week, please notify your surgeon or the nurse liaison at the phone number below for possible testing. Telephone instructions given to PT - EKTA TIMMERMANN and asked if any additional questions and then verbalized understanding. Patient advised to call surgeon office or pre surgery nurse liaison [phone] if any additional questions.
[2022-09-04 11:27] VITALS: BMI 33.9
--- NOTE | 2022-09-10 14:25 | WPDANESEPPF ---
Anes - Initial Pre Proc Eval Procedure: Operation Date: 09/11/22 14:30 Proposed Procedures p Manipulation Under Anesthesia Right Knee - Jacob Jesus MD Date/Time: 09/10/22 14:25 Surgeon: Jacob Jesus MD Pre Op Diagnosis: Contracture of Right Total Knee Patient Data Age: 56 Gender: F Height: 1.68 m Weight: 95.4 kg Allergies Allergy/AdvReac Type Severity Reaction Status Date / Time No Known Allergies Allergy Verified 09/11/22 12:44 Home Medications Medication Instructions Recorded Confirmed Type pmbajvwstabn-Th-aeyw-minerals 1 tablet PO DAILY 12/25/19 09/11/22 History (Multiple Vitamin, Womens tablet) omeprazole magnesium 20 mg 20 mg PO PRN PRN Heartburn 06/11/22 09/04/22 History tablet,delayed release (Prilosec OTC) meloxicam 15 mg tablet 15 mg PO DAILY #90 tabs 08/22/22 09/11/22 Rx oxycodone-acetaminophen 5 mg-325 1 tablet PO Q4-6H PRN pain #30 tabs 08/30/22 09/11/22 Rx mg tablet oxycodone-acetaminophen 5 mg-325 1 - 2 tablet PO Q4-6H PRN pain #30 09/11/22 Rx mg tablet tabs Patient hx anesthesia problems: none Family hx anesthesia problems: none Results Review: All pre-operative results and documents have been reviewed as part of the pre-operative evaluation. [facility] Past Medical History Medical History Aftercare following joint replacement surgery Contracture, left knee GERD (gastroesophageal reflux disease) Osteoarthritis of both knees Osteoarthritis of left knee Osteoarthritis of right knee Surgical History Surgical History H/O: hysterectomy History of laparoscopic cholecystectomy (~1994) History of total right knee replacement (~07/03/22) History of vaginal hysterectomy (~2008) A&P Repair, TVT Status post total knee replacement, left Family History Family History Father Hypertension Family history of diabetes mellitus in first degree relative Family history of arthritis Mother Hypertension Family history of arthritis Sibling Family history of lung cancer Social History Social History Smoking status: Never smoker Additional smoking assessment comments: DENIES ANY FORM OF TOBACCO USE Alcohol intake: never Substance use: never Substance use type: does not use Lack of Transportation: No Lack of Food: Never True Current Housing: I Have Housing Concerned About Future Housing: No Difficulty Paying Gas/Electric Bills: No Difficulty Paying for Meds: No Currently Unemployed: No Education: Associate Degree Difficulty w/ Childcare or Family Care: No Living arrangements: with family Gender identity (if verbalized by the patient): Female Sexual Orientation (if Verbalized by the Patient): Straight or Heterosexual Spiritual care concerns: No Anes - Eval Final PreProcedure Day of Procedure 09/10/22 14:25 Patient weight: obese Heart: regular rate and rhythm Lungs: clear to auscultation Airway: Mallampati scale class II Neurological: alert and oriented Last oral intake: >/= 8 hours ASA classification: II Emergent: no Anesthetic plan: proceed Anesthesia type and monitoring: general GIVS and LMA and standard monitoring Results Review: All pre-operative results and documents have been reviewed as part of the pre-operative evaluation. Informed Consent: The patient's anesthetic plan and its attendant risks and benefits were discussed with the patient/family/POA. Questions were solicited and answers provided to the satisfaction of the patient/family/POA.
--- NOTE | 2022-09-11 11:49 | WPDHPUPDATE1 ---
History and Physical Update Update Date/Time: 09/11/22 11:49 History and Physical has been reviewed, including an updated exam of the patient. There are NO changes in the patient's condition. Risks, benefits, and alternatives have been discussed and questions answered. Patient agrees to proceed with procedure.
[2022-09-11 12:35] VITALS: BP 145/69; PULSE 63; RESP 16; TEMP 36.5; O2SAT 99
[2022-09-11] MEDS: LACTATED RINGERS 1,000 ML 30 ML IV CONT (13:00)
[2022-09-11 13:10] VITALS: BMI 33.9
--- NOTE | 2022-09-11 14:08 | SUR.PREOP ---
1408- Notified patient and spouse Brian that procedure start time will be delayed. Patient and spouse verbalized understanding and denying needs at this time.
[2022-09-11] MEDS: ACETAMINOPHEN 500 MG TABLET 1000 MG PO (14:32)
[2022-09-11] MEDS: KETOROLAC 15 MG/ML VIAL (*BKC) IV PUSH (14:32)
[2022-09-11] MEDS: methylPREDNISolone ACETATE 80 MG/ML VIAL I-ARTICULR (14:52)
[2022-09-11 15:00] VITALS: BP 122/63; PULSE 62; RESP 16; O2SAT 99
[2022-09-11] MEDS: fentaNYL CITRATE INJ (*CRX) 100 MCG/2 ML VIAL 25 MCG IV PUSH ×2 (15:17→15:21)
[2022-09-11 15:30] VITALS: BP 124/66; PULSE 63; RESP 16
--- NOTE | 2022-09-11 15:39 | W.PM.PROC2 ---
Procedure Note - Detailed Date of Procedure 09/11/22 Pre-op Diagnosis Contracture of Right Total Knee Post-op Diagnosis Same Procedure Performed 1. Manipulation under anesthesia right knee, s/p total knee arthroplasty. 2. Injection Depo-Medrol right knee joint. Surgeon Jacob Jesus MD Anesthesia General Description of Procedure Anesthesia given. Knee examination revealed 3? to 105? motion. Manipulation demonstrated several small releases of lateral and superior tissue. Flexion then progressed to 115? without pressure and 125? with pressure. A superolateral portal to the was prepped and draped with alcohol, chlorhexidine, followed by Betadine. A 25 gauge needle was used to inject 80 mg Depo-Medrol and 9 mL of 0.5% Marcaine with epinephrine. Patient was brought to the recovery room in stable condition. There were no complications. Complications No immediate complications Condition Stable Disposition Same day [facility] Billing Surgery - Charge Forward: Surgery Billing
[2022-09-11] MEDS: oxyCODONE HCL (*CRX) 5 MG TAB IR PO (15:43)
== END 2022-09-11 16:00 | disposition home or self-care (01) ==
PROVIDERS: Visit Provider Orthopaedic Surgery
PROC: (CPT 27570; principal; 2022-09-11 14:30)
DX: M24.561 Contracture, right knee (principal); Z96.651 Presence of right artificial knee joint; K21.9 Gastro-esophageal reflux disease without esophagitis; E66.9 Obesity, unspecified; Z68.33 Body mass index [BMI] 33.0-33.9, adult
CPT/HCPCS: 27570; A9270; J1040; J1885; J2250; J2704; J3010; J7120

== ENCOUNTER 2022-09-18 10:30 | Outpatient (RCR) | payer OTHER, SELFPAY ==
--- NOTE | 2022-09-12 16:13 | PTOPEVAL1 ---
Assessment and note entered by Christine Parra, PT Evaluation Information Assessment Status Evaluation Diagnosis right knee manipulation after total joint replacement 07/03/22 Reported Pain Level Pain Score 2: Self Report Assessment PT Clinical Summary Pt returns s/p right knee manipulation 09/11/22 after total knee replacement 07/03/22. Pt reports yesterday had increased aching in the evening, did ice and pain medication and is doing better today . Demo's increased knee flexion compared to visit prior to manipulation, overall shows passive ROM of 4-106 right knee, good quad strength, mild gait abnormalities, overall. Pt will benefit from physical therapy to address deficits and improve function to meet her goals. Plan of Care Interventions Electrical Stimulation,Gait Training,Manual Therapy,Therapeutic Activities,Therapeutic Exercise PT Services Indicated Yes Treatment Frequency and 1-2x weekly x 12 visits Duration These treatments will address the objective and functional deficits as defined above. The patient will be advanced safely and appropriately in order for the patient to progress towards his/her prior level of function. Additional exercises will be introduced and as well as a comprehensive home exercise program upon discharge, if needed, ?to ensure carryover of functional gains achieved in the clinic. This treatment plan has been reviewed and agreement upon by the patient.
--- NOTE | 2022-09-21 12:15 | PTOPDC ---
Assessment and note entered by Christine Parra, PT Discharge Assessment Status Discharge - Pt Not Present Diagnosis right knee manipulation after total joint replacement 07/03/22 Assessment PT Clinical Summary Pt has done well with therapy post manipulation. Previous visit pt and therapist went through home exercises to maintain ROM as well as techniques to minimize inflammation and discomfort with return to work. Pt will be returning to work next week and unable to attend therapy further, thus will be discharged at this time.
== END 2022-09-24 13:15 | disposition home or self-care (01) ==
LOC: ANHHIPT 10:30
PROVIDERS: Visit Provider Orthopaedic Surgery
DX: Z47.1 Aftercare following joint replacement surgery (principal); Z96.651 Presence of right artificial knee joint
CPT/HCPCS: 97014; 97110; 97140; 97161; G0283

== ENCOUNTER 2022-10-22 13:17 | Observation (INO) | payer OTHER, SELFPAY ==
--- NOTE | ~2022-10-22 | CT_ITS ---
EXAMINATION: CT abdomen pelvis w con DATE: 10/22/2022 14:54 INDICATION: Left lower quadrant pain. TECHNIQUE: Computed tomography (CT) of the abdomen and pelvis was performed with 100 cc Omnipaque 350 intravenous contrast. The dose-length product was 871.94 mGy-cm. Automated exposure control and iterative reconstruction technique were employed. COMPARISON: CT dated 05/09/2018. FINDINGS: There is dependent atelectasis. Heart size is normal. No significant pleural or pericardial effusion. Status post cholecystectomy. The liver, spleen, pancreas, adrenal glands and left kidney a re unremarkable. There is a small subcentimeter right renal cyst. There is abnormal thickening of the descending colon with mild surrounding fluid/inflammation. There are a few associated diverticula. M oderate lower thoracic and lumbar spondylosis. Stable lytic defect right ilium, likely benign. No ari e air or free fluid. No abnormal pelvic mass or fluid collections mild lower thoracic and lumbar spon dylosis. IMPRESSION: 1. Abnormal thickening of the descending colon with mild surrounding inflammation. Consider infectiou s/inflammatory colitis versus diverticulitis. Reviewed, dictated and finalized at location [] IMPRESSION: 1. Abnormal thickening of the descending colon with mild surrounding inflammati on. Consider infectious/inflammatory colitis versus diverticulitis.
[2022-10-22 13:28] VITALS: BP 129/90; PULSE 95; RESP 20; TEMP 37.1; O2SAT 99
[2022-10-22 13:56] LABS: Basophils Percent Auto 0.2 % (0.2-1.2); Eosinophils Absolute Auto 0.1 K/mm3 (0-0.3); Eosinophils Percent Auto 0.7 % (0-4.4); Immature Granulocyte Absolute 0.02 K/mm3 (0.00-0.031); Immature Granulocyte Percent A 0.2 % (0-0.5); Lymphocytes Absolute Auto 1.64 K/mm3 (0.9-3.2); Lymphocytes Percent Auto 18.4 % (18.3-44.2); Mean Corpuscular HGB Conc 32.6 g/dl (32-36); Mean Corpuscular Hemoglobin 29.4 pg (26-34); Mean Platelet Volume 9.8 fl (7.4-10.4); Monocytes Absolute Auto 0.7 K/mm3 (0.1-0.6); Monocytes Percent Auto 7.6 % (2.6-8.5); Neutrophils Absolute Auto 6.5 K/mm3 (1.3-6.7); Neutrophils Percent Auto 72.9 % (45.5-73.1); Platelet Count Result 284 k/mm3 (150-375); Red Blood Count 5.11 M/mm3 (4.2-5.4); Red Cell Distribution Width 13.9 % (11.5-14.5); White Blood Count 8.9 K/mm3 (4.5-10.0)
[2022-10-22] MEDS: MORPHINE SULFATE (*CRX) 4 MG/ML INJ IV PUSH ×3 (13:59→18:25)
[2022-10-22] MEDS: ONDANSETRON INJ 4 MG/2 ML VIAL IV PUSH ×3 (13:59→22:39)
[2022-10-22 14:00] LABS: Appearance Urine Clear (Clear); Bacteria Urine None Seen /hpf; Bilirubin Urine Negative (Negative); Blood Urine Negative (Negative); Color Urine Yellow (Yellow); Glucose Urine UA Negative (Negative); Ketones Urine 1+ mg/dL (Negative); Leukocyte Esterase Ur Trace LEU/UL (Negative); Nitrate Urine Negative (Negative); Non Pathogenic Casts 0-2; Protein Urine Trace mg/dL (Negative); Specific Grav Ur 1.022 (1.001-1.035); Squamous Epithelial Cell Urine Few /hpf (Few); WBC Urine 0-5 /hpf; pH Urine 7.5 (5.0-9.0)
[2022-10-22] MEDS: SODIUM CHLORIDE 0.9% IV 1,000 ML 999 ML IV CONT (14:00)
[2022-10-22 14:05] LABS: Add Urine Microscopic? YES
[2022-10-22 14:07] LABS: Alanine Aminotransferase 42 U/L (6-35); Albumin Level 4.3 g/dL (3.5-5.1); Alkaline Phosphatase 136 U/L (38-126); Anion Gap 7 mmol/L (8-16); Aspartate Amino Transferase 37 U/L (14-36); Bilirubin,Total 0.7 mg/dL (0.2-1.3); Blood Urea Nitrogen 15 mg/dL (7-17); Calcium 8.8 mg/dL (8.4-10.2); Carbon Dioxide 23 mmol/L (22-30); Chloride 109 mmol/L (98-107); Estimated CRCL calculation 113 ml/min; Estimated Glomerular Filt Rate > 60; Glucose 94 mg/dL (65-110); Lipase 59 U/L (23-300); Potassium 3.9 mmol/L (3.4-5.0); Sodium 139 mmol/L (137-145)
--- NOTE | 2022-10-22 15:52 | ED.GENADULT ---
HPI - General Adult General Chief complaint: Abdominal Pain Stated complaint: severe abd pain Time Seen by Provider: 10/22/22 13:37 History of Present Illness HPI narrative: Patient is a 56-year-old female who presents ER with lower abdominal pain. Left-sided. Worsening over the last day. Was seen at [facility] ER last night and diagnosed with diverticulitis. Received IV ciprofloxacin and Flagyl. She was prescribed medicines for home. Unfortunately symptoms have significantly increased. She contacted general surgery who referred her to the ER. No fevers or chills or sweats. She has had some diarrhea. No vomiting. Related Data Home Medications Medication Instructions Recorded Confirmed pbvgnkczcwqt-Qq-aoco-minerals 1 tablet PO DAILY 12/25/19 10/22/22 (Multiple Vitamin, Womens tablet) omeprazole magnesium 20 mg 20 mg PO PRN PRN Heartburn 06/11/22 10/22/22 tablet,delayed release (Prilosec OTC) Allergies Allergy/AdvReac Type Severity Reaction Status Date / Time No Known Allergies Allergy Verified 09/17/22 09:36 Review of Systems Review of Systems: All systems reviewed & are unremarkable except as noted in HPI and below Constitutional: Constitutional: Denies chills, Reports fatigue and Denies fever(s) Cardiovascular: Cardiovascular: Denies chest pain and Denies rapid heart rate Respiratory: Respiratory: Denies cough and Denies dyspnea Gastrointestinal: Gastrointestinal: Reports abdominal pain, Reports diarrhea, Denies nausea and Denies vomiting Genitourinary: Genitourinary: Denies nocturia, Denies dysuria and Denies flank pain [facility] Past Medical History Medical History Aftercare following joint replacement surgery Contracture, left knee GERD (gastroesophageal reflux disease) Osteoarthritis of both knees Osteoarthritis of left knee Osteoarthritis of right knee Surgical History Surgical History H/O: hysterectomy History of laparoscopic cholecystectomy (~1994) History of total right knee replacement (~07/03/22) History of vaginal hysterectomy (~2008) A&P Repair, TVT Status post total knee replacement, left Family History Family History Father Hypertension Family history of diabetes mellitus in first degree relative Family history of arthritis Mother Hypertension Family history of arthritis Sibling Family history of lung cancer Social History Social History Smoking status: Never smoker Additional smoking assessment comments: DENIES ANY FORM OF TOBACCO USE Alcohol intake: never Substance use: never Substance use type: does not use Lack of Transportation: No Lack of Food: Never True Current Housing: I Have Housing Concerned About Future Housing: No Difficulty Paying Gas/Electric Bills: No Difficulty Paying for Meds: No Currently Unemployed: No Education: Associate Degree Difficulty w/ Childcare or Family Care: No Living arrangements: with family Gender identity (if verbalized by the patient): Female Sexual Orientation (if Verbalized by the Patient): Straight or Heterosexual Spiritual care concerns: No Exam Narrative: GENERAL: Uncomfortable-appearing, well-nourished, and in no acute distress. HEAD: Normocephalic, atraumatic ENT: Mucous membranes moist. NECK: Supple. CHEST: Clear to auscultation. No respiratory distress. HEART: Regular rate and rhythm. Normal peripheral pulses. ABDOMEN: Soft, tender palpation left lower quadrant and left mid abdomen with guarding, nondistended, normal active bowel sounds. EXTREMITIES: Normal range of motion. No edema. SKIN: Warm, dry, no rash. NEURO: Alert and oriented x3. PSYCH: Normal mood and affect. Course Course Emergency Course: Patient still with some persistent
[2022-10-22] MEDS: PIPERACILLN/TAZ 3.375GM/NS50ML 3.375 GM/50 ML BAG IVPB (16:33)
[2022-10-22] MEDS: SODIUM CHLORIDE 0.9% IV 1,000 ML 125 ML IV CONT (16:33)
[2022-10-22 16:48] VITALS: BP 119/74; PULSE 82; RESP 13; O2SAT 100
[2022-10-22 17:42] VITALS: BP 104/70; PULSE 79; RESP 17; O2SAT 100
[2022-10-22 18:19] VITALS: BMI 30.2
[2022-10-22 18:20] VITALS: BP 127/73; PULSE 81; RESP 16; TEMP 36.8; O2SAT 100
--- NOTE | 2022-10-22 18:22 | ADMGEN ---
This patient, Sarah Colón, was admitted to [facility] Surg Room [id number]. Patient/family oriented to hospital policies and general routines including ID bracelet, bed and alarms, visiting hours, pain management, procedures, bathroom and other care routines, personal items, smoking policy, room service/diet, and visiting hours. Information on how to activate the Rapid Response Team has been discussed. Patient/Family are encouraged to report perceived risks to care and to ask questions if they do not understand what they are told or what they should do.
--- NOTE | 2022-10-22 20:37 | PM.IMHP ---
H&P: HPI History of Present Illness Date/Time: 10/22/22 20:37 Chief Complaint: Abdominal pain Narrative: This is a 56-year-old female patient who presents to the emergency room with lower abdominal pain more so on the left side. Patient has been having worsening pain over the last day. The patient went to [place] ER last night. She was diagnosed with diverticulitis and was given Flagyl and Cipro. Her picked up her medications this morning and she continued to vomit she could not keep her p.o. medications down. Patient denies any fever chills. Repeat abdominal CT was read as the following1. Abnormal thickening of the descending colon with mild surrounding inflammation. Consider infectious/inflammatory colitis versus diverticulitis. The patient was started on IV fluids, morphine, and Zosyn. The patient stated that the morphine made her sick to her stomach. The patient is being admitted to observation status on the date of service of 10/22/2022. Review of Systems Review of Systems: All systems reviewed & are unremarkable except as noted in HPI and below Constitutional: Constitutional: Reports as per HPI and Reports no additional constitutional complaints Eyes: Eyes: Reports as per HPI and Reports no additional eye complaints ENT: Reports system reviewed and no additional complaints, except as documented and Reports Normal hearing present Cardiovascular: Cardiovascular: Reports no additional cardiovascular complaints Respiratory: Respiratory: Reports no additional respiratory complaints and Reports no additional respiratory complaints Gastrointestinal: Gastrointestinal: Reports as per HPI and Reports no additional gastrointestinal complaints Musculoskeletal: Musculoskeletal: Reports no additional musculoskeletal complaints Integumentary/Breasts: Skin/Breast: Reports system reviewed and no additional complaints, except as docu and Reports as per HPI Neurologic: Reports system reviewed and no additional complaints, except as documented, Reports as per HPI and Reports Normal hearing present Psychiatric: Psychiatric: Reports no additional psychiatric complaints and Reports as per HPI Endocrine: Endocrine: Reports no additional endocrine complaints Hematologic/Lymphatic: Hematologic/Lymphatic: Reports no additional hematologic/lymphatic complaints Allergic/Immunologic: Allergic/Immunologic: Reports no additional allergic/immunologic complaints [facility] Past Medical History Medical History (Updated 10/23/22 @ 00:45 by Kelsey Mayorga NP) Aftercare following joint replacement surgery Contracture, left knee Diverticulitis GERD (gastroesophageal reflux disease) Osteoarthritis of both knees Osteoarthritis of left knee Osteoarthritis of right knee Surgical History Surgical History (Updated 10/23/22 @ 00:45 by Kelsey Mayorga NP) H/O: hysterectomy History of laparoscopic cholecystectomy (~1994) History of total right knee replacement (~07/03/22) History of vaginal hysterectomy (~2008) A&P Repair, TVT Status post total knee replacement, left Status post total right knee replacement Family History Family History Father Hypertension Family history of diabetes mellitus in first degree relative Family history of arthritis Mother Hypertension Family history of arthritis Sibling Family history of lung cancer Social History Social History (Updated 10/23/22 @ 00:42 by Kelsey Mayorga NP) Social History: The patient is to Brian and she has 4 children. 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 She is a lifelong nonsmoker. Her is a durable power city attorney. Code status full code Smoking status: Never smoker Additional smoking assessment comments: DENIES ANY FORM OF TOBACCO USE Alcohol intake: never Substance use: never Substance use type: does not use Lack of Transportation: No Lack of Food: Never True Cu
[2022-10-22] MEDS: KETOROLAC 15 MG/ML VIAL (*BKC) IV PUSH (21:46)
[2022-10-22 21:57] VITALS: BP 109/62; PULSE 78; RESP 16; TEMP 36.8; O2SAT 99
[2022-10-23] MEDS: PIPERACILLN/TAZ 3.375GM/NS50ML 3.375 GM/50 ML BAG IVPB ×5 (00:13→23:57)
[2022-10-23] MEDS: SODIUM CHLORIDE 0.9% IV 1,000 ML 125 ML IV CONT ×3 (00:13→17:10)
[2022-10-23] MEDS: fentaNYL CITRATE INJ (*CRX) 100 MCG/2 ML VIAL 25 MCG IV PUSH ×4 (00:19→21:25)
[2022-10-23 06:00] VITALS: BP 106/65; PULSE 81; RESP 16; TEMP 36.6; O2SAT 99
[2022-10-23] MEDS: ONDANSETRON INJ 4 MG/2 ML VIAL IV PUSH ×2 (06:01→10:10)
[2022-10-23 06:22] LABS: Basophils Percent Auto 0.4 % (0.2-1.2); Eosinophils Absolute Auto 0.2 K/mm3 (0-0.3); Eosinophils Percent Auto 2.3 % (0-4.4); Hematocrit 40.5 % (37.0-47.0); Hemoglobin 12.7 g/dL (12.0-15.0); Immature Granulocyte Absolute 0.02 K/mm3 (0.00-0.031); Immature Granulocyte Percent A 0.3 % (0-0.5); Lymphocytes Percent Auto 21.9 % (18.3-44.2); Mean Corpuscular HGB Conc 31.4 g/dl (32-36); Mean Corpuscular Hemoglobin 29.4 pg (26-34); Mean Corpuscular Volume 93.8 fl (80-100); Mean Platelet Volume 9.9 fl (7.4-10.4); Monocytes Absolute Auto 0.6 K/mm3 (0.1-0.6); Monocytes Percent Auto 8.2 % (2.6-8.5); Neutrophils Absolute Auto 4.6 K/mm3 (1.3-6.7); Neutrophils Percent Auto 66.9 % (45.5-73.1); Platelet Count Result 227 k/mm3 (150-375); Red Blood Count 4.32 M/mm3 (4.2-5.4); Red Cell Distribution Width 14.3 % (11.5-14.5); White Blood Count 6.9 K/mm3 (4.5-10.0)
[2022-10-23 06:47] LABS: Lactic Acid Reflex 0.7 mmol/L (0.7-2.0)
[2022-10-23 06:48] LABS: Alanine Aminotransferase 36 U/L (6-35); Albumin Level 3.3 g/dL (3.5-5.1); Alkaline Phosphatase 101 U/L (38-126); Anion Gap 5 mmol/L (8-16); Aspartate Amino Transferase 31 U/L (14-36); Bilirubin,Total 0.7 mg/dL (0.2-1.3); Blood Urea Nitrogen 12 mg/dL (7-17); Calcium 7.9 mg/dL (8.4-10.2); Carbon Dioxide 23 mmol/L (22-30); Chloride 111 mmol/L (98-107); Estimated CRCL calculation 113 ml/min; Estimated Glomerular Filt Rate > 60; Glucose 80 mg/dL (65-110); Magnesium 2.3 mg/dL (1.6-2.3); Potassium 3.6 mmol/L (3.4-5.0); Sodium 139 mmol/L (137-145)
[2022-10-23] MEDS: PANTOPRAZOLE SODIUM IV 40 MG VIAL IV PUSH ×2 (08:23→21:19)
[2022-10-23 10:15] VITALS: O2SAT 98
[2022-10-23] MEDS: HYDROcodone/acetaminophen (*CRX) 5-325 MG TABLET 1 TAB PO ×2 (13:11→17:14)
[2022-10-23 14:00] VITALS: BP 123/68; PULSE 73; RESP 16; TEMP 36.9; O2SAT 99
--- NOTE | 2022-10-23 15:55 | WPDPN ---
Progress Note: A&P Assessment and Plan (1) Diverticulitis: Code(s): K57.92 - Diverticulitis of intestine, part unspecified, without perforation or abscess without bleeding Status: Acute Assessment and Plan: Continue with IV fluid She has Tylenol, Norris, and fentanyl for discomfort. The patient stated that the morphine was making her sick to her stomach. Continue to monitor CBC and lactic. Continue with IV fluids. Continue with Zosyn. 10/23/2022 itnterval history: 56-year-old female presented with abdominal pain is found to colitis versus diverticulitis being treated with Zosyn patient states symptoms are persisting, will stop heart healthy diet and start the patient on clear liquid, consult GI for further recommended, will continue to monitor. Subjective Date/time seen: 10/23/22 15:55 Interval history: Abdominal pain HPI-Narrative: This is a 56-year-old female patient who presents to the emergency room with lower abdominal pain more so on the left side.? Patient has been having worsening pain over the last day.? The patient went to [place] ER last night.? She was diagnosed with diverticulitis and was given Flagyl and Cipro.? Her picked up her medications this morning and she continued to vomit she could not keep her p.o. medications down.? Patient denies any fever chills.? Repeat abdominal CT was read as the following1. Abnormal thickening of the descending colon with mild surrounding inflammation. Consider infectious/inflammatory colitis versus diverticulitis.? The patient was started on IV fluids, morphine, and Zosyn.? The patient stated that the morphine made her sick to her stomach.? The patient is being admitted to observation status on the date of service of 10/22/2022. 10/23/2022 itnterval history: 56-year-old female presented with abdominal pain is found to colitis versus diverticulitis being treated with Zosyn patient states symptoms are persisting, will stop heart healthy diet and start the patient on clear liquid, consult GI for further recommended, will continue to monitor. Review of Systems Review of Systems: All systems reviewed & are unremarkable except as noted in HPI and below Exam Narrative: Patient is comfortable, NAD HEENT: eyes are clear and none icteric LUNGS: Normal respiratory effort ABD: Distended Lower extremities: no edema SKIN: nonjaundiced Neuro: grossly intact. Objective Data Vital Signs Vital Signs: Vital Signs - 24 hr 10/22/22 16:48 10/22/22 17:42 10/22/22 18:40 Temperature Pulse Rate 82 79 Respiratory Rate 13 17 Blood Pressure 119/74 104/70 Pulse Oximetry 100 100 Oxygen Delivery Room Air 10/22/22 18:20 10/22/22 21:57 10/23/22 06:00 Temperature 98.2 F 98.2 F 97.8 F Pulse Rate 81 78 81 Respiratory Rate 16 16 16 Blood Pressure 127/73 109/62 106/65 Pulse Oximetry 100 99 99 Oxygen Delivery 10/23/22 10:15 10/23/22 14:00 Temperature 98.5 F Pulse Rate 73 Respiratory Rate 16 Blood Pressure 123/68 Pulse Oximetry 98 99 Oxygen Delivery Room Air Intake/Output Intake/Output: Intake & Output 10/20/22 10/21/22 10/22/22 10/23/22 23:59 23:59 23:59 23:59 Intake Total 1050 2570 Balance 1050 2570 Meds/Results Medications: Active Medications Generic Name Dose Route Start Last Admin Trade Name Freq PRN Reason Stop Dose Admin Acetaminophen 650 mg 10/22/22 16:04 Acetaminophen 325 Mg Tablet PO Q4H PRN Mild Pain (1-3) or Fever Hydrocodone Bitart/Acetaminophen 1 tab 10/22/22 16:04 10/23/22 13:11 Hydrocodone/Acetaminophen (*Crx) 5-325 Mg Tablet PO 1 tab Q4H PRN Administration Pain Rated 4-6 Fentanyl Citrate 25 mcg 10/22/22 20:51 10/23/22 10:10 Fentanyl Citrate Inj (*Crx) 100 Mcg/2 Ml Vial IV PUSH 25 mcg Q4H PRN Administration Pain Rated 7-10 Piperacillin/Tazobactam/Dextrose 3.375 gm in 50 mls @ 100 mls/hr 10/23/22 00:00 10/23/22 13:38 Zosyn 3.375 Gm/Ns 5
--- NOTE | 2022-10-23 16:33 | WPDGICN ---
Assessment and Plan Assessment and plan (1) Diverticulitis: Code(s): K57.92 - Diverticulitis of intestine, part unspecified, without perforation or abscess without bleeding Status: Acute Assessment and Plan: Clinically this looks like diverticulitis. She does not have issues that would give her a high probability of ischemic colitis, as she is not diabetic, does not have vascular disease, is not hormone replacement therapy and does not smoke. I told her that the treatment is as has been started, IV antibiotics, bowel rest, rehydration and pain control. In a few weeks we will have her come in as an outpatient for colonoscopy to ensure that there is no other pathology. (2) GERD (gastroesophageal reflux disease): Code(s): K21.9 - Gastro-esophageal reflux disease without esophagitis Status: Acute Assessment and Plan: She does have heartburn frequently for which she uses ihjr-hru-jggtlwa medications. She has not been on prescription medications. (3) Dysphagia: Code(s): R13.10 - Dysphagia, unspecified Status: Acute Assessment and Plan: Lately she has noticed that she has difficulty swallowing as though food is hanging up in the cricopharyngeal area. Drinking liquids will help it go down. (4) Status post total knee replacement, left: Code(s): Z96.652 - Presence of left artificial knee joint Status: Acute Assessment and Plan: This was done a couple years ago (5) Status post total knee replacement, right: Code(s): Z96.651 - Presence of right artificial knee joint Status: Acute Assessment and Plan: Only about 10 weeks ago the right knee was replaced GI Consult Note Consult date/time: 10/23/22 16:33 HPI: Sarah Colón is a 56 year old female was admitted with acute diverticulitis. She actually had presented to the emergency room in [place] yesterday and was diagnosed with diverticulitis. She was sent home on Flagyl and Cipro. She began those medications this morning but was unable to keep anything down. Because of the vomiting she came to this emergency room where CT scan does show abnormal thickening of the descending colon with surrounding inflammation . I have personally reviewed this scan. That show thickening in the distal descending colon. There were a few diverticula. She has never had diverticulitis before or any other: Problem. She has not had a colonoscopy. Review of Systems Review of Systems: All systems reviewed & are unremarkable except as noted in HPI and below PMFSH Past Medical History Medical History Aftercare following joint replacement surgery Contracture, left knee Diverticulitis GERD (gastroesophageal reflux disease) Osteoarthritis of both knees Osteoarthritis of left knee Osteoarthritis of right knee Surgical History Surgical History H/O: hysterectomy History of laparoscopic cholecystectomy (~1994) History of total right knee replacement (~07/03/22) History of vaginal hysterectomy (~2008) A&P Repair, TVT Status post total knee replacement, left Status post total right knee replacement Family History Family History Father Hypertension Family history of diabetes mellitus in first degree relative Family history of arthritis Mother Hypertension Family history of arthritis Sibling Family history of lung cancer Social History Social History Social History: The patient is to Brian and she has 4 children. 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 She is a lifelong nonsmoker. Her is a durable power [employer] mechanic. Code status full code Smoking status: Never smoker Additional smoking assessment comments: DENIES ANY FORM OF TOBACCO USE Alcohol intake: never
[2022-10-23 21:39] VITALS: BP 106/74; PULSE 55; RESP 16; TEMP 36.3; O2SAT 100
[2022-10-24] MEDS: HYDROcodone/acetaminophen (*CRX) 5-325 MG TABLET 1 TAB PO ×3 (00:32→18:13)
[2022-10-24] MEDS: SODIUM CHLORIDE 0.9% IV 1,000 ML 125 ML IV CONT ×2 (02:22→12:15)
[2022-10-24] MEDS: PIPERACILLN/TAZ 3.375GM/NS50ML 3.375 GM/50 ML BAG IVPB ×3 (05:25→18:13)
[2022-10-24 05:46] VITALS: BP 114/64; PULSE 69; RESP 16; TEMP 36.4; O2SAT 99
[2022-10-24 07:14] LABS: Hematocrit 38.5 % (37.0-47.0); Hemoglobin 12.2 g/dL (12.0-15.0); Mean Corpuscular HGB Conc 31.7 g/dl (32-36); Mean Corpuscular Hemoglobin 29.3 pg (26-34); Mean Corpuscular Volume 92.5 fl (80-100); Mean Platelet Volume 9.8 fl (7.4-10.4); Platelet Count Result 213 k/mm3 (150-375); Red Blood Count 4.16 M/mm3 (4.2-5.4); Red Cell Distribution Width 14.1 % (11.5-14.5); White Blood Count 4.5 K/mm3 (4.5-10.0)
[2022-10-24 07:34] LABS: Anion Gap 4 mmol/L (8-16); Blood Urea Nitrogen 6 mg/dL (7-17); Calcium 7.9 mg/dL (8.4-10.2); Carbon Dioxide 25 mmol/L (22-30); Chloride 110 mmol/L (98-107); Estimated CRCL calculation 96 ml/min; Estimated Glomerular Filt Rate > 60; Glucose 73 mg/dL (65-110); Magnesium 2.1 mg/dL (1.6-2.3); Potassium 3.4 mmol/L (3.4-5.0); Sodium 139 mmol/L (137-145)
[2022-10-24] MEDS: PANTOPRAZOLE SODIUM IV 40 MG VIAL IV PUSH ×2 (09:12→21:49)
[2022-10-24] MEDS: POTASSIUM CHLORIDE 20 MEQ ER TABLET 40 MEQ PO (11:25)
--- NOTE | 2022-10-24 13:21 | WPDPN ---
Progress Note: A&P Assessment and Plan (1) Diverticulitis: Code(s): K57.92 - Diverticulitis of intestine, part unspecified, without perforation or abscess without bleeding Status: Acute Assessment and Plan: Continue with IV fluid She has Tylenol, [place], and fentanyl for discomfort. The patient stated that the morphine was making her sick to her stomach. Continue to monitor CBC and lactic. Continue with IV fluids. Continue with Zosyn. 10/24/2022 itnterval history: 56-year-old female presented with abdominal pain is found to colitis versus diverticulitis being treated with Zosyn and bowl rest on clear diet, stats feeling better today compare to yesterday, seen by GI and agrees with plan, will benfit with colonoscopy as outpatient after symptoms have resolved, will continue to monitor. Subjective Date/time seen: 10/24/22 13:21 Interval history: Abdominal pain HPI-Narrative: This is a 56-year-old female patient who presents to the emergency room with lower abdominal pain more so on the left side.? Patient has been having worsening pain over the last day.? The patient went to [facility] last night.? She was diagnosed with diverticulitis and was given Flagyl and Cipro.? Her picked up her medications this morning and she continued to vomit she could not keep her p.o. medications down.? Patient denies any fever chills.? Repeat abdominal CT was read as the following1. Abnormal thickening of the descending colon with mild surrounding inflammation. Consider infectious/inflammatory colitis versus diverticulitis.? The patient was started on IV fluids, morphine, and Zosyn.? The patient stated that the morphine made her sick to her stomach.? The patient is being admitted to observation status on the date of service of 10/22/2022. 10/24/2022 itnterval history: 56-year-old female presented with abdominal pain is found to colitis versus diverticulitis being treated with Zosyn and bowl rest on clear diet, stats feeling better today compare to yesterday, seen by GI and agrees with plan, will benfit with colonoscopy as outpatient after symptoms have resolved, will continue to monitor. Review of Systems Review of Systems: All systems reviewed & are unremarkable except as noted in HPI and below Exam Narrative: Patient is comfortable, NAD HEENT: eyes are clear and none icteric LUNGS: Normal respiratory effort ABD: Distended Lower extremities: no edema SKIN: nonjaundiced Neuro: grossly intact. Objective Data Vital Signs Vital Signs: Vital Signs - 24 hr 10/23/22 14:00 10/23/22 21:39 10/24/22 05:46 Temperature 98.5 F 97.4 F L 97.5 F L Pulse Rate 73 55 L 69 Respiratory Rate 16 16 16 Blood Pressure 123/68 106/74 114/64 Pulse Oximetry 99 100 99 Oxygen Delivery 10/24/22 09:11 Temperature Pulse Rate Respiratory Rate Blood Pressure Pulse Oximetry Oxygen Delivery Room Air Intake/Output Intake/Output: Intake & Output 10/21/22 10/22/22 10/23/22 10/24/22 23:59 23:59 23:59 23:59 Intake Total 1050 3860 2470 Balance 1050 3860 2470 Meds/Results Medications: Active Medications Generic Name Dose Route Start Last Admin Trade Name Freq PRN Reason Stop Dose Admin Acetaminophen 650 mg 10/22/22 16:04 Acetaminophen 325 Mg Tablet PO Q4H PRN Mild Pain (1-3) or Fever Hydrocodone Bitart/Acetaminophen 1 tab 10/22/22 16:04 10/24/22 09:11 Hydrocodone/Acetaminophen (*Crx) 5-325 Mg Tablet PO 1 tab Q4H PRN Administration Pain Rated 4-6 Fentanyl Citrate 25 mcg 10/22/22 20:51 10/23/22 21:25 Fentanyl Citrate Inj (*Crx) 100 Mcg/2 Ml Vial IV PUSH 25 mcg Q4H PRN Administration Pain Rated 7-10 Piperacillin/Tazobactam/Dextrose 3.375 gm in 50 mls @ 100 mls/hr 10/23/22 00:00 10/24/22 12:10 Zosyn 3.375 Gm/Ns 50 Ml IVPB Infused Q6H JOHANNA Infusion Sodium Chloride 1,000 mls @ 125 mls/hr 10/22/22 16:05 10/24/22 12:15 Normal Saline Iv IV
[2022-10-24 14:00] VITALS: BP 123/67; PULSE 55; RESP 14; TEMP 36.2; O2SAT 100
--- NOTE | 2022-10-24 15:38 | ECG_ITS ---
Measurements Intervals [place] Rate: 69 P: 43 IN: 153 QRS: 15 QRSD: 89 T: 66 QT: 359 QTc: 386 Interpretive Statements SINUS RHYTHM COMPARED TO ECG 05/04/2022 14:21:43 NO SIGNIFICANT CHANGES Electronically Signed On 10-24-2022 20:00:45 CDT by Claire Melendez M.D.
[2022-10-24 15:40] VITALS: BP 150/77; PULSE 88; RESP 24; TEMP 36.2; O2SAT 100
[2022-10-24 16:00] VITALS: PULSE 69
--- NOTE | 2022-10-24 16:04 | WPDGIPROGNO ---
Progress Note: A&P Assessment and Plan (1) Diverticulitis: Code(s): K57.92 - Diverticulitis of intestine, part unspecified, without perforation or abscess without bleeding Status: Acute Assessment and Plan: Clinically this looks like diverticulitis. She does not have issues that would give her a high probability of ischemic colitis, as she is not diabetic, does not have vascular disease, is not hormone replacement therapy and does not smoke. I told her that the treatment is as has been started, IV antibiotics, bowel rest, rehydration and pain control. In a few weeks we will have her come in as an outpatient for colonoscopy to ensure that there is no other pathology. pain has subsided somewhat today, (2) GERD (gastroesophageal reflux disease): Code(s): K21.9 - Gastro-esophageal reflux disease without esophagitis Status: Acute Assessment and Plan: She does have heartburn frequently for which she uses [id number] medications. She has not been on prescription medications. (3) Dysphagia: Code(s): R13.10 - Dysphagia, unspecified Status: Acute Assessment and Plan: Lately she has noticed that she has difficulty swallowing as though food is hanging up in the cricopharyngeal area. Drinking liquids will help it go down. (4) Status post total knee replacement, left: Code(s): Z96.652 - Presence of left artificial knee joint Status: Acute Assessment and Plan: This was done a couple years ago (5) Status post total knee replacement, right: Code(s): Z96.651 - Presence of right artificial knee joint Status: Acute Assessment and Plan: Only about 10 weeks ago the right knee was replaced (6) Chest pain: Code(s): R07.9 - Chest pain, unspecified Status: Acute Assessment and Plan: this just began within the past hour. EKG is going to be performed and blood work will be obtained to check troponin levels. Subjective Date/time seen: 10/24/22 16:04 she was feeling better today. She had asked the staff if she could have a full liquid diet. Subsequently however she developed chest pain and therefore is in the process of having an EKG performed at this time troponin levels will also be obtained. She states that the pain in her abdomen has subsided somewhat. Remains afebrile Exam Const: General: cooperative and healthy appearing Orientation/consciousness: patient oriented x3 HENMT: Head: normal to inspection Ears: hearing grossly normal bilaterally Eyes: General: appearance normal, both eyes and all related structures Neck: Neck: normal visual inspection Chest: Chest palpation & inspection: normal inspection of the chest Resp: Effort & Inspection: normal respiratory effort Auscultation: clear to auscultation bilaterally Cardio: Rate: regular rate Rhythm: regular rhythm GI: Inspection: normal to inspection GI Palp: Yes Tenderness to palpation present (GI) (Lower abdomen, left more than right), Yes Guarding due to palpation present (GI) (Left lower quadrant) and Yes No hepatosplenomegaly present Auscultation: normal bowel sounds Skin: General skin exam: normal color and no jaundice Neuro: General: patient oriented x3 Speech: normal speech Objective Data Vital Signs Vital Signs: Vital Signs - 24 hr 10/23/22 21:39 10/24/22 05:46 10/24/22 09:11 Temperature 36.3 C L 36.4 C L Pulse Rate 55 L 69 Respiratory Rate 16 16 Blood Pressure 106/74 114/64 Pulse Oximetry 100 99 Oxygen Delivery Room Air 10/24/22 14:00 10/24/22 15:40 Temperature 36.2 C L 36.2 C L Pulse Rate 55 L 88 Respiratory Rate 14 24 H Blood Pressure 123/67 150/77 H Pulse Oximetry 100 100 Oxygen Delivery Intake/Output Intake/Output: Intake & Output 10/21/22 10/22/22 10/23/22 10/24/22 23:59 23:59 23:59 23:59 Intake Total 1050 3860 2588 Balance 1050 3860 2588 Meds/Results Medications: Active Medications Gen
--- NOTE | 2022-10-24 16:12 | PC.NURSE ---
at approx 1530 engineering secretary informed nurse that pt used call light to inform that she was having chest tightness and pain. Right away this nurse grabs vitals cart and goes in room to assess pt. Pt in obvious distress. Pt stated to nurse she was feeling tightness on her chest and and had tightness/pain shooting down her arm. She states the tightness has subsided down her arm but was still experiencing tightness in her chest. Vitals upon assessment was B/P 150/77, pulse was 88, RR 24, O2 was 100%, and temp was 97.1 taken tympanically. This nurse then called provider at 1537 and provider told nurse to order a stat EKG and stat Troponin. Provider also stated he will come up too see her. EKG taken and pt EKG read normal sinus. Still waiting for troponin to result at the time of this note. Provider ordered pt to be monitored by tele, which she was then placed on. Pt still c/o tightness although she states it has subsided a little. Will monitor for further incident and will assess troponin when it is available.
[2022-10-24 16:38] LABS: Troponin I < 0.012 ng/mL (0.000-0.034)
--- NOTE | 2022-10-24 16:55 | PC.NURSE ---
troponin resulted WNL
[2022-10-24 20:00] VITALS: PULSE 70
[2022-10-24 21:06] VITALS: BP 127/74; PULSE 55; RESP 16; TEMP 36.4; O2SAT 100
[2022-10-25] VITALS: PULSE 73
[2022-10-25] MEDS: PIPERACILLN/TAZ 3.375GM/NS50ML 3.375 GM/50 ML BAG IVPB ×2 (00:14→05:12)
[2022-10-25] MEDS: HYDROcodone/acetaminophen (*CRX) 5-325 MG TABLET 1 TAB PO (03:51)
[2022-10-25 04:00] VITALS: PULSE 56
[2022-10-25] MEDS: SODIUM CHLORIDE 0.9% IV 1,000 ML 125 ML IV CONT (05:14)
[2022-10-25 06:00] VITALS: BP 116/70; PULSE 69; RESP 16; TEMP 36.9; O2SAT 99
[2022-10-25 06:35] LABS: Hematocrit 40.3 % (37.0-47.0); Hemoglobin 12.9 g/dL (12.0-15.0); Mean Corpuscular Hemoglobin 29.4 pg (26-34); Mean Corpuscular Volume 91.8 fl (80-100); Platelet Count Result 246 k/mm3 (150-375); Red Blood Count 4.39 M/mm3 (4.2-5.4); Red Cell Distribution Width 13.9 % (11.5-14.5); White Blood Count 4.5 K/mm3 (4.5-10.0)
--- NOTE | 2022-10-25 06:46 | WPDGIPROGNO ---
Progress Note: A&P Assessment and Plan (1) Diverticulitis: Code(s): K57.92 - Diverticulitis of intestine, part unspecified, without perforation or abscess without bleeding Status: Acute Assessment and Plan: Clinically this looks like diverticulitis. She does not have issues that would give her a high probability of ischemic colitis, as she is not diabetic, does not have vascular disease, is not hormone replacement therapy and does not smoke. I told her that the treatment is as has been started, IV antibiotics, bowel rest, rehydration and pain control. In a few weeks we will have her come in as an outpatient for colonoscopy to ensure that there is no other pathology. pain has subsided somewhat today, 10/26/2021 pain has subsided considerably. She could be switched to oral antibiotics and discharged. (2) GERD (gastroesophageal reflux disease): Code(s): K21.9 - Gastro-esophageal reflux disease without esophagitis Status: Acute Assessment and Plan: She does have heartburn frequently for which she uses [id number]-ajlyzlq medications. She has not been on prescription medications. (3) Dysphagia: Code(s): R13.10 - Dysphagia, unspecified Status: Acute Assessment and Plan: Lately she has noticed that she has difficulty swallowing as though food is hanging up in the cricopharyngeal area. Drinking liquids will help it go down. She will be scheduled for outpatient endoscopy at the time of her colonoscopy (4) Status post total knee replacement, left: Code(s): Z96.652 - Presence of left artificial knee joint Status: Acute Assessment and Plan: This was done a couple years ago (5) Status post total knee replacement, right: Code(s): Z96.651 - Presence of right artificial knee joint Status: Acute Assessment and Plan: Only about 10 weeks ago the right knee was replaced (6) Chest pain: Code(s): R07.9 - Chest pain, unspecified Status: Acute Assessment and Plan: this just began within the past hour. EKG is going to be performed and blood work will be obtained to check troponin levels. 10/25/2022 EKG was normal. No cardiac issue at this time Subjective Date/time seen: 10/25/22 06:46 she had chest pain last night but that has passed. EKG was normal. Abdominal pain has lessened considerably. She did have a few loose stools but no blood. Tolerating full liquid diet. I think she can be advanced to a low-fiber diet. I explained her that she will be on a low-fiber diet for a week or so and then eventually high-fiber diet to help reduce likelihood of recurrence is. From my perspective she could be discharged on oral antibiotics for another 7 days. Exam GI: Inspection: normal to inspection GI Palp: Yes Soft to palpation, Yes Tenderness to palpation present (GI) ( Very minimal, left lower quadrant) and No Guarding due to palpation present (GI) Objective Data Vital Signs Vital Signs: Vital Signs - 24 hr 10/24/22 09:11 10/24/22 14:00 10/24/22 15:40 Temperature 36.2 C L 36.2 C L Pulse Rate 55 L 88 Respiratory Rate 14 24 H Blood Pressure 123/67 150/77 H Pulse Oximetry 100 100 Oxygen Delivery Room Air 10/24/22 16:00 10/24/22 21:06 10/24/22 20:00 Temperature 36.4 C L Pulse Rate 69 55 L 70 Respiratory Rate 16 Blood Pressure 127/74 Pulse Oximetry 100 Oxygen Delivery 10/25/22 00:00 10/25/22 04:00 10/25/22 06:00 Temperature 36.9 C Pulse Rate 73 56 L 69 Respiratory Rate 16 Blood Pressure 116/70 Pulse Oximetry 99 Oxygen Delivery Intake/Output Intake/Output: Intake & Output 10/22/22 10/23/22 10/24/22 10/25/22 23:59 23:59 23:59 23:59 Intake Total 1050 3860 4304 200 Output Total 200 Balance 1050 3860 4304 0 Meds/Results Medications: Active Medications Generic Name Dose Route Start Last Admin Trade Name Freq PRN Reason Stop Dose Admin Acetaminophen 650
[2022-10-25 06:55] LABS: Anion Gap 2 mmol/L (8-16); Blood Urea Nitrogen 3 mg/dL (7-17); Calcium 8.4 mg/dL (8.4-10.2); Carbon Dioxide 28 mmol/L (22-30); Chloride 108 mmol/L (98-107); Estimated CRCL calculation 96 ml/min; Estimated Glomerular Filt Rate > 60; Glucose 80 mg/dL (65-110); Magnesium 2.1 mg/dL (1.6-2.3); Potassium 3.8 mmol/L (3.4-5.0); Sodium 138 mmol/L (137-145)
[2022-10-25 08:00] VITALS: PULSE 66
[2022-10-25] MEDS: PANTOPRAZOLE SODIUM IV 40 MG VIAL IV PUSH (08:26)
--- NOTE | 2022-10-25 11:43 | PM.DS ---
DS: Admitting Diagnosis Discharge Date 10/25/2022 Admitting Diagnosis Abdominal pain DS: Discharge Diagnosis Discharge Diagnosis (1) Diverticulitis: Code(s): K57.92 - Diverticulitis of intestine, part unspecified, without perforation or abscess without bleeding Status: Acute Assessment and Plan: Continue with IV fluid She has Tylenol, [place], and fentanyl for discomfort. The patient stated that the morphine was making her sick to her stomach. Continue to monitor CBC and lactic. Continue with IV fluids. Continue with Zosyn. 10/24/2022 itnterval history: 56-year-old female presented with abdominal pain is found to colitis versus diverticulitis being treated with Zosyn and bowl rest on clear diet, stats feeling better today compare to yesterday, seen by GI and agrees with plan, will benfit with colonoscopy as outpatient after symptoms have resolved, will continue to monitor. DS: Summary Hospital Course Reason for hospitalization: Abdominal pain Narrative: This is a 56-year-old female patient who presents to the emergency room with lower abdominal pain more so on the left side.? Patient has been having worsening pain over the last day.? The patient went to [facility] last night.? She was diagnosed with diverticulitis and was given Flagyl and Cipro.? Her picked up her medications this morning and she continued to vomit she could not keep her p.o. medications down.? Patient denies any fever chills.? Repeat abdominal CT was read as the following1. Abnormal thickening of the descending colon with mild surrounding inflammation. Consider infectious/inflammatory colitis versus diverticulitis.? The patient was started on IV fluids, morphine, and Zosyn.? The patient stated that the morphine made her sick to her stomach.? Hospital Course: 56-year-old female presented with abdominal pain is found to colitis versus diverticulitis being treated with Zosyn and bowl rest on clear diet, stats feeling better today compare to yesterday,? seen by GI and agrees with plan, will benfit with colonoscopy as outpatient after symptoms have resolved,? will continue to monitor. Today patient states had a BM, able to tolerate her diet, seen by GI patient is clinically stable will discharge patient today. Time Spent with Patient Time attestation: Total time spent providing and/or coordinating discharge services: Exam Narrative: Patient is comfortable, NAD HEENT: eyes are clear and none icteric LUNGS: Normal respiratory effort ABD: Distended Lower extremities: no edema SKIN: nonjaundiced Neuro: grossly intact. DS: Data Data Completed and Pending Labs on day of discharge: Labs from last 24 hours 10/25/22 10/24/22 06:08 15:54 WBC 4.5 RBC 4.39 Hgb 12.9 Hct 40.3 MCV 91.8 MCH 29.4 MCHC 32.0 RDW 13.9 Plt Count 246 MPV 10.0 Sodium 138 Potassium 3.8 Chloride 108 H Carbon Dioxide 28 Anion Gap 2 L BUN 3 L Creatinine 0.60 L Estim Creat Clear Calc 96 Estimated GFR > 60 Glucose 80 Calcium 8.4 Magnesium 2.1 Troponin I < 0.012 Preliminary micro results at discharge 10/23/22 05:45 Blood Culture - Preliminary Blood 10/23/22 05:45 Blood Culture - Preliminary Blood Discharge Plan Discharge Attending physician on discharge: Lucius Gutierrez Consulting providers: Johnny Arroyo; Kelsey Mayorga; Daryl Rangel; Claire Melendez Discharging Clinician: Lucius Gutierrez Patient Disposition: Home, Self-Care Activity: as tolerated Diet: heart healthy and low fiber Discharge Instructions: Patient to follow up with Dr Arroyo and her primary care provider as soon as possible, patient is instructed to avoid heavy fatty meals, and if any symptoms get worsen to go to nearest ER. Patient Instructions: Antibiotic Form Stand Alone Forms: General Discharge Information, Work/School Release IP Follow-up/Referrals: Johnny Arroyo MD [Physic
[2022-10-25 12:00] VITALS: PULSE 74
[2022-10-25] MEDS: AMOXICILLIN/CLAVULANATE K 875-125 MG TAB 1 TABLET PO (12:26)
== END 2022-10-25 14:20 | disposition home or self-care (01) ==
LOC: ANHED 13:55 → ANH3MEDSUR 21:01
PROVIDERS: Nurse Practitioner; Admitting Provider Student in an Organized Health Care Education/Training Program; Emergency Provider Emergency Medicine; Visit Provider Family Medicine
DX: K57.92 Diverticulitis of intestine, part unspecified, without perforation or abscess without bleeding (principal); K21.9 Gastro-esophageal reflux disease without esophagitis; R13.10 Dysphagia, unspecified; Z96.652 Presence of left artificial knee joint; Z96.651 Presence of right artificial knee joint; Z79.899 Other long term (current) drug therapy; R07.9 Chest pain, unspecified
CPT/HCPCS: 36415; 74177; 80048; 80053; 81001; 83605; 83690; 83735; 84484; 85025; 85027; 87040; 93005; 96361; 96365; 96375; 96376; 99285; A9270; C9113; G0378; J1885; J2270; J2405; J2543; J3010; J7030; Q9967

== ENCOUNTER 2022-11-28 04:18 | Day surgery (SDC) | payer OTHER, SELFPAY ==
[2022-11-15 14:31] VITALS: BMI 30.4
--- NOTE | 2022-11-27 20:08 | PM.HPGS ---
History of Present Illness History of Present Illness Consent: Risks, benefits, and alternatives have been discussed and questions answered. Patient agrees to proceed with procedure. Chief complaint: dysphagia, diverticulitis Narrative: Sarah Colón is a 57 year old female who states Lately she has noticed that she has difficulty swallowing as though food is hanging up in the cricopharyngeal area.? Drinking liquids will help it go down. She also was recently hospitalized with what appeared to be acute diverticulitis. Review of Systems Review of Systems: All systems reviewed & are unremarkable except as noted in HPI and below PMFSH Past Medical History Medical History Aftercare following joint replacement surgery Contracture, left knee Diverticulitis GERD (gastroesophageal reflux disease) Osteoarthritis of both knees Osteoarthritis of left knee Osteoarthritis of right knee Surgical History Surgical History H/O: hysterectomy History of laparoscopic cholecystectomy (~1994) History of total right knee replacement (~07/03/22) History of vaginal hysterectomy (~2008) A&P Repair, TVT Status post total knee replacement, left Status post total right knee replacement Family History Family History Father Hypertension Family history of diabetes mellitus in first degree relative Family history of arthritis Mother Hypertension Family history of arthritis Sibling Family history of lung cancer Social History Social History Social History: The patient is to Brian and she has 4 children. 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 She is a lifelong nonsmoker. Her is a durable power truck driving. Code status full code Smoking status: Never smoker Additional smoking assessment comments: DENIES ANY FORM OF TOBACCO USE Alcohol intake: never Substance use: never Substance use type: does not use Lack of Transportation: No Lack of Food: Never True Current Housing: I Have Housing Concerned About Future Housing: No Difficulty Paying Gas/Electric Bills: No Difficulty Paying for Meds: No Currently Unemployed: No Education: Associate Degree Difficulty w/ Childcare or Family Care: No Living arrangements: with family Gender identity (if verbalized by the patient): Female Sexual Orientation (if Verbalized by the Patient): Straight or Heterosexual Spiritual care concerns: No Meds Home Medications and Allergies Home Medications Medication Instructions Recorded Confirmed Type kkdmaibaboaw-Ts-sabk-minerals 1 tablet PO DAILY 12/25/19 11/28/22 History (Multiple Vitamin, Womens tablet) omeprazole magnesium 20 mg 20 mg PO PRN PRN Heartburn 06/11/22 11/28/22 History tablet,delayed release (Prilosec OTC) pantoprazole 40 mg tablet,delayed 40 mg PO QAM #30 tabs 10/25/22 11/28/22 Rx release (Protonix) meloxicam 15 mg tablet 7.5 mg PO BID 11/15/22 11/28/22 History Allergies Allergy/AdvReac Type Severity Reaction Status Date / Time No Known Allergies Allergy Verified 11/28/22 08:14 Exam Const: General: alert Orientation/consciousness: patient oriented x3 Resp: Auscultation: clear to auscultation bilaterally Cardio: Rhythm: regular rhythm GI: GI Palp: Yes Soft to palpation and No Tenderness to palpation present (GI) Neuro: General: patient oriented x3 Assessment and Plan Assessment and plan (1) Dysphagia: Code(s): R13.10 - Dysphagia, unspecified Status: Acute Assessment and Plan: EGD with possible biopsy or dilatation or cautery. (2) Diverticulitis: Code(s): K57.92 - Diverticulitis of intestine, part unspecified, without perforation or abscess without bleeding Status: Acute Assess
[2022-11-28 08:15] VITALS: BP 128/79; PULSE 72; RESP 16; O2SAT 100; BMI 32.5
[2022-11-28] MEDS: AMPICILLIN 2 GM/NS 100 ML 2 GM/100 ML BAG IVPB (08:25)
[2022-11-28] MEDS: LACTATED RINGERS 1,000 ML 150 ML IV CONT (08:28)
[2022-11-28] MEDS: BENZOCAINE (*SP) 60 ML SPRAY CAN (HURRICAINE) 1 SPRAY MUCOUS MEM (09:29)
--- NOTE | 2022-11-28 09:43 | SUR.OPER ---
egd ended at 934 colonoscopy started at 942.
[2022-11-28 09:56] VITALS: BP 99/64; PULSE 74; RESP 20; O2SAT 97
[2022-11-28 10:06] VITALS: BP 107/72; PULSE 73; RESP 20; O2SAT 100
[2022-11-28 10:16] VITALS: BP 130/82; PULSE 72; RESP 20; O2SAT 100
== END 2022-11-28 10:21 | disposition home or self-care (01) ==
PROVIDERS: Visit Provider Internal Medicine Gastroenterology
PROC: 0DJ08ZZ Inspection of Upper Intestinal Tract, Via Natural or Artificial Opening Endoscopic (ICD-10-PCS; CPT 43235; principal; 2022-11-28 09:30)
DX: Z09 Encounter for follow-up examination after completed treatment for conditions other than malignant neoplasm (principal); K57.30 Diverticulosis of large intestine without perforation or abscess without bleeding; K64.8 Other hemorrhoids; Z87.19 Personal history of other diseases of the digestive system; R13.10 Dysphagia, unspecified; K21.9 Gastro-esophageal reflux disease without esophagitis
CPT/HCPCS: 45378; 43239; 43450; 87081; 88305; J0290; J2704; J7120

== ENCOUNTER 2023-04-03 16:26 | Outpatient (CLI) | payer OTHER, SELFPAY ==
--- NOTE | ~2023-04-03 | MM_ITS ---
EXAMINATION: MM screening [facility] BI w farshad HISTORY: Screening mammogram TECHNIQUE: Craniocaudal and mediolateral oblique 3-D tomosynthesis images were obtained and synthetic 2-D images were generated. CAD analysis was submitted and interpreted. COMPARISON: 12/21/2021, 05/25/2020 bilateral screening mammogram examinations BREAST PARENCHYMAL COMPOSITION: The breasts are almost entirely fatty. FINDINGS: There is no evidence of suspicious mass, calcification, or architectural distortion to sugg est malignancy in either breast. There has been no suspicious interval change. IMPRESSION: 1. No mammographic evidence of malignancy. 2. Recommend routine screening mammography in one year. BI-RADS Category 1: Negative Reviewed, dictated and finalized at location A. SIGNAL MECHANIC
== END 2023-04-03 16:27 | disposition home or self-care (01) ==
LOC: ANHIMG 16:27
PROVIDERS: Visit Provider Obstetrics & Gynecology Gynecology
DX: Z12.31 Encounter for screening mammogram for malignant neoplasm of breast (principal)
CPT/HCPCS: 77063; 77067

== ENCOUNTER 2023-06-22 10:19 | Outpatient (CLI) | payer OTHER, SELFPAY ==
[2023-06-22 10:58] LABS: Alanine Aminotransferase 19 U/L (6-35); Alkaline Phosphatase 116 U/L (38-126); Anion Gap 4 mmol/L (8-16); Aspartate Amino Transferase 24 U/L (14-36); Bilirubin,Total 0.6 mg/dL (0.2-1.3); Blood Urea Nitrogen 20 mg/dL (7-17); Calcium 9.2 mg/dL (8.4-10.2); Carbon Dioxide 26 mmol/L (22-30); Chloride 109 mmol/L (98-107); Cholesterol 226 mg/dL (0-200); Estimated Glomerular Filt Rate > 60; Glucose 101 mg/dL (65-110); HDL Direct 64 mg/dL; Potassium 4.1 mmol/L (3.4-5.0); Sodium 139 mmol/L (137-145); Triglycerides 88 mg/dL (<150)
[2023-06-22 11:08] LABS: LDL Cholesterol Direct 121 mg/dL
[2023-06-22 11:59] LABS: Thyroid Stimulating Hormone Reflex 0.647 uIU/mL (0.465-4.68)
== END 2023-06-22 10:20 | disposition home or self-care (01) ==
DX: R53.83 Other fatigue (principal)
CPT/HCPCS: 36415; 80053; 80061; 84443

== ENCOUNTER 2023-07-15 07:45 | Emergency (ER) | payer OTHER, SELFPAY ==
--- NOTE | ~2023-07-15 | CT_ITS ---
EXAMINATION: CT abdomen pelvis w con DATE: 07/15/2023 08:51 INDICATION: Left lower quadrant abdominal pain. TECHNIQUE: Computed tomography (CT) of the abdomen and pelvis was performed with 100 mL Omnipaque 350 intravenous contrast. Automated exposure control and iterative reconstruction technique were employe d. The dose-length product was 913.38 mGy-cm. COMPARISON: CT abdomen and pelvis 10/22/2022 FINDINGS: The visualized portions of lung bases demonstrate mild atelectasis. Calcified right hilar l ymph nodes are consistent with old granulomatous disease. No pleural effusion. The heart size is norm al. No pericardial effusion. The liver and spleen are normal. There are changes of cholecystectomy. T he pancreas, adrenal glands, and left kidney are normal. There is a 5 mm cyst in right kidney. There are no dilated loops of bowel. The appendix is normal. There is diverticulosis of the colon without e vidence of diverticulitis. There are no pathologically enlarged lymph nodes. There is no free intrape ritoneal fluid. There is severe lower lumbar spondylosis. There is a chronic compression fracture of L1. There is mild chronic height loss of multiple vertebral bodies. IMPRESSION: 1. No etiology for the patient's symptoms. Reviewed, dictated and finalized at location A.
[2023-07-15 07:45] VITALS: BP 121/71; PULSE 71; RESP 17; TEMP 36.4; O2SAT 98
[2023-07-15 08:05] VITALS: BP 124/86; PULSE 79; RESP 18; O2SAT 100
[2023-07-15 08:17] LABS: Basophils Percent Auto 0.2 % (0.2-1.2); Eosinophils Absolute Auto 0.1 K/mm3 (0-0.3); Eosinophils Percent Auto 3.2 % (0-4.4); Hematocrit 45.9 % (37.0-47.0); Immature Granulocyte Absolute 0.01 K/mm3 (0.00-0.031); Immature Granulocyte Percent A 0.2 % (0-0.5); Lymphocytes Absolute Auto 1.12 K/mm3 (0.9-3.2); Lymphocytes Percent Auto 25.9 % (18.3-44.2); Mean Corpuscular HGB Conc 32.7 g/dl (32-36); Mean Corpuscular Hemoglobin 30.3 pg (26-34); Mean Corpuscular Volume 92.7 fl (80-100); Mean Platelet Volume 9.6 fl (7.4-10.4); Monocytes Absolute Auto 0.5 K/mm3 (0.1-0.6); Neutrophils Absolute Auto 2.5 K/mm3 (1.3-6.7); Neutrophils Percent Auto 58.5 % (45.5-73.1); Platelet Count Result 279 k/mm3 (150-375); Red Blood Count 4.95 M/mm3 (4.2-5.4); White Blood Count 4.3 K/mm3 (4.5-10.0)
[2023-07-15] MEDS: MORPHINE SULFATE (*CRX) 4 MG/ML INJ IV PUSH (08:27)
[2023-07-15] MEDS: SODIUM CHLORIDE 0.9% IV 1,000 ML 999 ML IV CONT (08:27)
[2023-07-15] MEDS: ONDANSETRON INJ 4 MG/2 ML VIAL IV PUSH (08:27)
[2023-07-15 08:31] LABS: Alanine Aminotransferase 24 U/L (6-35); Albumin Level 4.2 g/dL (3.5-5.1); Alkaline Phosphatase 120 U/L (38-126); Anion Gap 8 mmol/L (8-16); Aspartate Amino Transferase 32 U/L (14-36); Bilirubin,Total 0.7 mg/dL (0.2-1.3); Blood Urea Nitrogen 22 mg/dL (7-17); Calcium 8.4 mg/dL (8.4-10.2); Carbon Dioxide 19 mmol/L (22-30); Chloride 109 mmol/L (98-107); Estimated CRCL calculation 115 ml/min; Estimated Glomerular Filt Rate > 60; Glucose 103 mg/dL (65-110); Lipase 78 U/L (23-300); Potassium 4.4 mmol/L (3.4-5.0); Sodium 136 mmol/L (137-145)
[2023-07-15 08:40] LABS: Appearance Urine Cloudy (Clear); Bacteria Urine None Seen /hpf; Bilirubin Urine 1+ (Negative); Blood Urine Negative (Negative); Color Urine Orange (Yellow); Glucose Urine UA Negative (Negative); Ketones Urine Negative (Negative); Leukocyte Esterase Ur 1+ LEU/UL (Negative); Nitrate Urine Positive (Negative); Non Pathogenic Casts 0-2; Protein Urine 1+ mg/dL (Negative); Squamous Epithelial Cell Urine Moderate /hpf (Few)
[2023-07-15 08:41] LABS: Need Manual Microscopic Reviewed; Specific Grav Ur 1.036 (1.001-1.035)
[2023-07-15 08:42] LABS: Add Urine Microscopic? YES
[2023-07-15] MEDS: DICYCLOMINE HCL INJ 20 MG/2 ML VIAL IM (09:42)
[2023-07-15] MEDS: BELLADONNA ALK/PHENOB ELIX 10 ML, MAG HYDROX/ALUMINUM HYD/SIMETH 30 ML, LIDOCAINE HCL 2... PO (10:25)
[2023-07-15 10:28] VITALS: BP 140/77; PULSE 74; RESP 20; O2SAT 100
--- NOTE | 2023-07-15 11:15 | ED.ABDPAIN ---
HPI - Abdominal Pain General Chief Complaint: Abdominal Pain Stated Complaint: left sided abd pain Time Seen by Provider: 07/15/23 07:54 History of Present Illness HPI narrative: patient is a 57-year-old female who presents ER with left-sided abdominal pain. Worsening over last 2 days. So she was some nausea and diarrhea. No fevers or chills or sweats. Has history of diverticulitis and is concerned it may be related. Some the discomfort radiates into the mid chest as well. Has not identified any alleviating factors. Related Data Home Medications Medication Instructions Recorded Confirmed ttvhyirozwjm-Ia-wdtg-minerals 1 tablet PO DAILY 12/25/19 06/10/23 (Multiple Vitamin, Womens tablet) omeprazole magnesium 20 mg 20 mg PO PRN PRN Heartburn 06/11/22 06/10/23 tablet,delayed release (Prilosec OTC) Allergies Allergy/AdvReac Type Severity Reaction Status Date / Time No Known Allergies Allergy Verified 07/15/23 08:05 Review of Systems Review of Systems: All systems reviewed & are unremarkable except as noted in HPI and below Constitutional: Constitutional: Reports no additional constitutional complaints ENT: Reports system reviewed and no additional complaints, except as documented Cardiovascular: Cardiovascular: Reports no additional cardiovascular complaints Respiratory: Respiratory: Reports no additional respiratory complaints Gastrointestinal: Gastrointestinal: Reports abdominal pain, Reports heartburn, Reports diarrhea and Reports nausea Genitourinary: Genitourinary: Reports no additional female genitourinary complaints Musculoskeletal: Musculoskeletal: Reports no additional musculoskeletal complaints [facility] Past Medical History Medical History Aftercare following joint replacement surgery Contracture, left knee Diverticulitis GERD (gastroesophageal reflux disease) Osteoarthritis of both knees Osteoarthritis of left knee Osteoarthritis of right knee Surgical History Surgical History H/O: hysterectomy History of laparoscopic cholecystectomy (~1994) History of total right knee replacement (~07/03/22) History of vaginal hysterectomy (~2008) A&P Repair, TVT Status post total knee replacement, left Status post total right knee replacement Family History Family History Father Hypertension Family history of diabetes mellitus in first degree relative Family history of arthritis Mother Hypertension Family history of arthritis Sibling Family history of lung cancer Social History Social History Social History: The patient is to Brian and she has 4 children. 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 She is a lifelong nonsmoker. Her is a durable power production supv. Code status full code Smoking status: Never smoker Additional smoking assessment comments: DENIES ANY FORM OF TOBACCO USE Alcohol intake: never Substance use: never Substance use type: does not use Lack of Transportation: No Lack of Food: Never True Current Housing: I Have Housing Concerned About Future Housing: No Difficulty Paying Gas/Electric Bills: No Difficulty Paying for Meds: No Currently Unemployed: No Education: Associate Degree Difficulty w/ Childcare or Family Care: No Living arrangements: with family Gender identity (if verbalized by the patient): Female Sexual Orientation (if Verbalized by the Patient): Straight or Heterosexual Spiritual care concerns: No Exam Narrative: GENERAL: Well-appearing, well-nourished, and in no acute distress. HEAD: Normocephalic, atraumatic. ENT: Mucous membranes moist. NECK: Supple. CHEST: Clear to auscultation. No respiratory distress. HEART: Regular rate and rhythm. Normal peripheral pulses. A
[2023-07-15 11:34] VITALS: BP 130/68; PULSE 65; RESP 16; TEMP 36.8; O2SAT 100
== END 2023-07-15 11:36 | disposition home or self-care (01) ==
PROVIDERS: Emergency Provider Emergency Medicine
DX: N39.0 Urinary tract infection, site not specified (principal); K29.70 Gastritis, unspecified, without bleeding; K21.9 Gastro-esophageal reflux disease without esophagitis; M17.0 Bilateral primary osteoarthritis of knee; Z96.653 Presence of artificial knee joint, bilateral; Z90.710 Acquired absence of both cervix and uterus; Z90.49 Acquired absence of other specified parts of digestive tract
CPT/HCPCS: 36415; 74177; 80053; 81001; 83690; 85025; 87077; 87086; 87088; 87186; 96361; 96372; 96374; 96375; 99284; A9270; J0500; J2270; J2405; J7030; Q9967

== ENCOUNTER 2023-12-12 02:44 | Day surgery (SDC) | payer OTHER, SELFPAY ==
[2023-12-10 13:38] VITALS: BMI 31.1
--- NOTE | 2023-12-10 13:54 | SUR.PREOP ---
Report to the Outpatient Waiting Room, entrance under the green pavilion located off [facility], at time 0600 on date 12/12/23. Planned Procedure Time: 0730. Time changes happen often and if your time is changed the preop area will call you the afternoon before. - You and your visitor will be asked to self-screen and do not enter if you have any COVID symptoms. - A mask is optional within the hospital at this time. Patients may have clear liquids (water, carbonated beverages, clear teas, apple juice) until 3 hours prior to surgery with a maximum of 20 ounces. - No food from midnight until time of surgery - Infants may have breast milk until 4 hours before surgery, infant formula 6 hours prior to surgery. - Children will be allowed to drink immediately following surgery. If applicable, please bring a bottle or sippy cup to assist with drinking. Juice, water, soda, and popsicles are readily available. For infants on formula, please bring formula the day of surgery. Pacifiers are allowed. Take the following medications with a SIP of water the morning of surgery: N/A DO NOT STOP ANY OF YOUR OTHER PRESCRIPTION MEDICATIONS PRIOR TO SURGERY ?EXCEPT THE FOLLOWING Medications to discontinue per physician: Vitamin- 3 days, Meloxicam- verify with Dr. Collado if needs discontinued Date to take last dose: Patient reports stopping multi vitamin and Meloxicam for 10 days prior to surgery date Please no make-up, nail sudanese, hairspray, perfume, deodorant, or body powder the day of surgery. No jewelry (including any body piercings) or valuables the day of surgery, leave them at home. Please take a shower or bath the night before, or the morning of, surgery with an antibacterial soap. Wear comfortable, loose fitting clothing. Children are encouraged to wear pajamas. - Jewelry must be removed prior to entering the operating room. Rings and piercings that are not removed may be cut off. - The hospital will not accept responsibility for valuables. - Please leave all valuables, including medications, at home the day of surgery. If you are going home after surgery, a licensed city driver must drive you home. - NO public transportation without another adult if you receive anesthesia. - We recommend that an adult stay with you for 24 hours following discharge. - We also recommend that you do not drive, make important decision, drink alcoholic beverages, or take any drugs that were not prescribed by your health care provider for at least 24 hours after your discharge time. For Pediatric surgeries, we recommend two adults accompany the child home. Follow any additional instructions given to you from your surgeon. If you or anyone in your household have experienced Covid symptoms in the past week, please notify your surgeon or the nurse liaison at the phone number below for possible testing. Telephone instructions given to ____patient and asked if any additional questions and then verbalized understanding. Patient advised to call surgeon office or pre surgery nurse liaison [phone] if any additional questions.
[2023-12-12] VITALS (10 sets, daily range): BP systolic 113–147; BP diastolic 58–90; PULSE 56–90; RESP 12–18; TEMP 35–36.6; O2SAT 93–100
--- NOTE | 2023-12-12 06:43 | WPDANESEPPF ---
Anes - Initial Pre Proc Eval Procedure: Operation Date: 12/12/23 07:30 Proposed Procedures p Bilateral Breast Reduction - Tawanna Collado MD Date/Time: 12/12/23 06:43 Surgeon: Tawanna Collado MD Pre Op Diagnosis: hypertrophy of breasts Patient Data Age: 58 Gender: F Height: 1.68 m Weight: 87.7 kg Allergies Allergy/AdvReac Type Severity Reaction Status Date / Time No Known Allergies Allergy Verified 12/10/23 13:35 Home Medications Medication Instructions Recorded Confirmed Type vdlkhnyzhkpf-Ph-zkol-minerals 1 tablet PO DAILY 12/25/19 12/10/23 History (Multiple Vitamin, Womens tablet) meloxicam 15 mg tablet See Rx Instructions .Route 05/30/23 12/10/23 Rx .COMPLEX #30 tabs pantoprazole 40 mg tablet,delayed See Rx Instructions .Route 05/30/23 12/10/23 Rx release .COMPLEX #30 tabs dicyclomine 10 mg capsule 10 mg PO DAILY 12/10/23 12/10/23 History Patient hx anesthesia problems: none Family hx anesthesia problems: none Results Review: All pre-operative results and documents have been reviewed as part of the pre-operative evaluation. [facility] Past Medical History Medical History Aftercare following joint replacement surgery Contracture, left knee Diverticulitis GERD (gastroesophageal reflux disease) Osteoarthritis of both knees Osteoarthritis of left knee Osteoarthritis of right knee Surgical History Surgical History H/O: hysterectomy History of laparoscopic cholecystectomy (~1994) History of total right knee replacement (~07/03/22) History of vaginal hysterectomy (~2008) A&P Repair, TVT Status post total knee replacement, left Status post total right knee replacement Family History Family History Father Hypertension Family history of diabetes mellitus in first degree relative Family history of arthritis Mother Hypertension Family history of arthritis Sibling Family history of lung cancer Social History Social History Social History: The patient is to Brian and she has 4 children. 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 She is a lifelong nonsmoker. Her is a durable power transactional attorney. Code status full code Smoking status: Never smoker Additional smoking assessment comments: DENIES ANY FORM OF TOBACCO USE Alcohol intake: never Substance use: never Substance use type: does not use Lack of Transportation: No Lack of Food: Never True Current Housing: I Have Housing Concerned About Future Housing: No Difficulty Paying Gas/Electric Bills: No Difficulty Paying for Meds: No Currently Unemployed: No Education: Associate Degree Difficulty w/ Childcare or Family Care: No Living arrangements: with family Gender identity (if verbalized by the patient): Female Sexual Orientation (if Verbalized by the Patient): Straight or Heterosexual Spiritual care concerns: No Anes - Eval Final PreProcedure Day of Procedure 12/12/23 06:43 Patient weight: overweight Heart: regular rate and rhythm Lungs: clear to auscultation Airway: Mallampati scale class II Neurological: alert and oriented Last oral intake: >/= 8 hours ASA classification: II Emergent: no Anesthetic plan: proceed Anesthesia type and monitoring: general ETT and standard monitoring Results Review: All pre-operative results and documents have been reviewed as part of the pre-operative evaluation. Informed Consent: The patient's anesthetic plan and its attendant risks and benefits were discussed with the patient/family/POA. Questions were solicited and answers provided to the satisfaction of the patient/family/POA.
[2023-12-12] MEDS: LACTATED RINGERS 1,000 ML 30 ML IV CONT ×2 (06:45→10:07)
--- NOTE | 2023-12-12 06:58 | P.HPUP_ITS ---
History and Physical Update Update Date/Time: 12/12/23 06:58 Patient seen and examined in pre-operative holding area. No interval change in medical history or symptoms. Patient remembers previous discussion of benefits and alternatives to procedure. Continues to desire to proceed with bilateral breast reduction. I reviewed the risks including but not limited to bleeding ,infection, asymmetry, undesireable cosmetic appearance, partial/total skin/nipple loss, no change or worsening of symptoms, change in sensation. I discussed the possible use of assistants and their level of participation in the case. Patient stated understanding and signed the consent form wishing to pr oceed
--- NOTE | 2023-12-12 06:58 | W.PM.PROC2 ---
Procedure Note - Detailed Date of Procedure 12/12/23 Pre-op Diagnosis hypertrophy of breasts Post-op Diagnosis Same Procedure Performed b/l breast reduction Surgeon Tawanna Collado MD Service Or Work Dispatcher Chief mykel alanis pa-c Anesthesia General Description of Procedure Patient was seen and examined in the preoperative holding area. The breast were marked for an inferior pedicle Mosley pattern reduction in the consent form was signed. Patient was taken back to the operating room and placed on the table in the supine position. Time-out was performed with Anesthesia, surgeon, and staff agreeing on patient's name, site, and surgery to be performed. SCDs were placed on the lower extremities and inflated. Antibiotics were given IV. After general anesthesia was administered the breasts were prepped and draped in the usual sterile fashion. I took my attention 1st to the right breast where I used a saline moistened lap pad and Juventino clamp to create a breast tourniquet. I used a 38 mm nipple Sizer to circumscribe the nipple-areolar complex. I proceeded with de epithelializing and 7 cm wide inferior pedicle. I made my other skin incisions with a 15 blade scalpel and used Bovie cautery to elevate the superior skin flaps and Arjun's plane down to the level of the chest wall. I proceeded with resection of 553 g of tissue from the right breast. I irrigated with normal saline. Hemostasis with Bovie cautery. The pedicle was plicated with 2-0 Vicryl suture. 2-0 Prolene was then used to secure the T-junction. Next I took my attention to the left breast where similar procedure was performed. Using the breast tourniquet and 38 mm nipple Sizer then de epithelializing a 7 cm wide inferior pedicle. Made my other skin incisions and elevated superior skin flaps in Arjun's plane down to the chest wall with Bovie cautery. I next proceeded with resection of 727 g of tissue from the left breast. This appeared to have reasonable volume and symmetry to the right breast. I irrigated with normal saline and hemostasis with Bovie. The pedicle was plicated with 2-0 Vicryl suture. The T-junction was secured with 2-0 Prolene. The patient was then sat up in the operating room for further verification and verified reasonable size volume and symmetry. The patient was returned to the supine position. We proceeded with closure using 3-0 Vicryl suture for dermis. The nipples were brought out at 5-1/2 cm above the inframammary fold at the most prominent portion of the breast at the breast midline and secured with 3-0 Vicryl suture. 4-0 Monocryl was used for subcuticular closure. The nipples appeared viable with good cap refill. I injected 20 cc of 1% lidocaine with epinephrine and 0.5% Marcaine plain along the anterior axillary line and inferior mammary fold of each breast. A dressing of Mastisol, Steri-Strips, 4x4s, ABDs and a breast binder was then applied. The patient was awakened from anesthesia and transferred to the recovery room in stable condition. Complications: None estimated blood loss: 50 cc disposition: Patient tolerated the procedure well and will be going home later today. Mykel Alanis PA-C was essential for positioning, retraction, closure and dressing placement G Billing Surgery - Charge Forward: Surgery Billing ([id number] same for mykel adding modifier )
[2023-12-12] MEDS: SCOPOLAMINE 1 MG PATCH 1 PATCH TRANSDERM (07:00)
[2023-12-12] MEDS: ceFAZolin 2 GM/D5W 50 ML 2 GM/50 ML BAG IVPB (07:29)
[2023-12-12] MEDS: BUPIVACAINE/EPINEPHRINE 0.5% 10 ML VIAL 60 ML INFILTRATE (07:56)
[2023-12-12] MEDS: HYDROmorphone HCL INJ (*CRX) 1 MG/ML SYR 0.25 MG IV PUSH ×8 (10:22→11:37)
[2023-12-12] MEDS: oxyCODONE HCL (*CRX) 5 MG TAB IR PO (11:55)
== END 2023-12-12 12:45 | disposition home or self-care (01) ==
PROVIDERS: Visit Provider Plastic Surgery
PROC: 0HBV0ZZ Excision of Bilateral Breast, Open Approach (ICD-10-PCS; CPT 19318; principal; 2023-12-12 07:30)
DX: N62 Hypertrophy of breast (principal); L82.1 Other seborrheic keratosis; K21.9 Gastro-esophageal reflux disease without esophagitis; M17.0 Bilateral primary osteoarthritis of knee; K57.92 Diverticulitis of intestine, part unspecified, without perforation or abscess without bleeding; Z98.890 Other specified postprocedural states; Z90.49 Acquired absence of other specified parts of digestive tract; Z80.1 Family history of malignant neoplasm of trachea, bronchus and lung
CPT/HCPCS: 19318; 88305; A9270; J0690; J1100; J1170; J1200; J2250; J2405; J2704; J3010; J7120

== ENCOUNTER 2024-05-19 10:17 | Emergency (ER) | payer OTHER, SELFPAY ==
[2024-05-19] VITALS (12 sets, daily range): BP systolic 117–167; BP diastolic 63–94; PULSE 73–82; RESP 15–20; TEMP 36.4; O2SAT 94–100
--- NOTE | ~2024-05-19 | CT_ITS ---
CTA chest abdomen pelvis Ordering provider: Rani Sweet PA-C History: . cp, back pain . Comparison: None. Technique: CT angiogram chest, abdomen and pelvis was performed following timed intravenous injection of contrast. Thin slice axial images and reformatted coronal images were obtained. Three dimensional reformatted images of the chest were also obtained using a Vitrea workstation. Radiation reduction t echnique utilized The dose-length product was 814.4 mGy-cm. 100 mL Omnipaque 350 was given IV. FINDINGS: CHEST: --THORACIC AORTA: normal. No aneurysm, dissection or mediastinal hematoma. --GREAT VESSELS: Normal as visualized. --PULMONARY ARTERIES: No pulmonary embolus. --VISUALIZED THORACIC INLET: Normal. --MEDIASTINUM: Coronary arteries: Normal. Heart/other: The heart is not enlarged. Lymph nodes: No mediastinal or hilar adenopathy. Calcified right hilar lymph nodes. --LUNGS: No pulmonary nodules or masses. No infiltrates or effusions. No pneumothorax. --MUSCULOSKELETAL: Superficial soft tissues: The superficial soft tissues are normal. Bones: Age appropriate degenerative changes of the spine. ABDOMEN/PELVIS: --MUSCULOSKELETAL: Bones: Age appropriate degenerative changes of the spine. Superficial soft tissues: The superficial soft tissues are normal. --UPPER ABDOMINAL ORGANS: Liver: Normal. Gallbladder: Not demonstrated most likely Status post cholecystectomy Spleen: Normal. Stomach/duodenum: Normal. Pancreas: Normal. Adrenals: Normal. Kidneys: Normal. --PELVIC ORGANS: The bladder is normal. No bladder stones. --BOWEL AND MESENTERY: Colon: Mild diverticulosis without diverticulitis sigmoid colon. Appendix is not demonstrated. Small Bowel: Normal. No obstruction. Peritoneum/mesentery: No free air or free fluid. No mesenteric lymphadenopathy. Small lymph nodes are seen in the right lower quadrant area. --RETROPERITONEUM: No retroperitoneal lymphadenopathy. --ARTERIES: ABDOMINAL AORTA: Normal No aneurysm or dissection. RENAL ARTERIES: Normal. CELIAC AXIS: Slight narrowing of the origin with post stenotic dilatation. SMA: Normal. MARIETTA: Normal. ILIAC AND VISUALIZED FEMORAL ARTERIES: Normal. MESENTERIC ARTERIES: Normal. IMPRESSION: CHEST: 1. No evidence of dissection or aneurysm. 2. No acute cardiopulmonary pathology. ABDOMEN/PELVIS: 1. No evidence of aneurysm or dissection. 2. No acute abdominal process. 3. Slight narrowing of the origin of the celiac artery with minimal post stenotic dilatation. Follow -up advised. Reviewed, dictated and finalized at location A. ER TANK OPERATOR IMPRESSION: CHEST: 1. No evidence of dissection or aneurysm. 2. No acute cardiopulmonary pathology. ABDOMEN/PELVIS: 1. No evidence of aneurysm or dissection. 2. No acute abdominal process. 3. Slight narrowing of the origin of the celiac artery with minimal post steno tic dilatation. Follow-up advised.
--- NOTE | 2024-05-19 10:20 | ECG_ITS ---
Test Date: 2024-05-19 10:29:28 Measurements Intervals [place] Rate: 81 P: 45 WA: 147 QRS: 23 QRSD: 94 T: 36 QT: 359 QTc: 418 Interpretive Statements SINUS RHYTHM BASELINE ARTIFACT LIMITS INTERPRETATION No previous ECG available for comparison Electronically Signed On 05-19-2024 15:25:38 KEYPUNCH OPERATOR by Shefali Ragland M.D.
[2024-05-19 10:43] LABS: Basophils Percent Auto 0.4 % (0.2-1.2); Eosinophils Absolute Auto 0.2 K/mm3 (0-0.3); Eosinophils Percent Auto 3.1 % (0-4.4); Hematocrit 45.3 % (37.0-47.0); Hemoglobin 14.4 g/dL (12.0-15.0); Immature Granulocyte Absolute 0.02 K/mm3 (0.00-0.031); Immature Granulocyte Percent A 0.3 % (0-0.5); Mean Corpuscular HGB Conc 31.8 g/dl (32-36); Mean Corpuscular Hemoglobin 29.6 pg (26-34); Mean Platelet Volume 9.1 fl (7.4-10.4); Monocytes Absolute Auto 0.5 K/mm3 (0.1-0.6); Monocytes Percent Auto 6.9 % (2.6-8.5); Neutrophils Absolute Auto 3.7 K/mm3 (1.3-6.7); Neutrophils Percent Auto 49.3 % (45.5-73.1); Platelet Count Result 338 k/mm3 (150-375); Red Blood Count 4.87 M/mm3 (4.2-5.4); Red Cell Distribution Width 13.7 % (11.5-14.5); White Blood Count 7.5 K/mm3 (4.5-10.0)
--- NOTE | 2024-05-19 10:45 | ED_ITS ---
HPI - Chest Pain General Chief Complaint: Chest Pain Stated Complaint: cp, shoulder pain and jaw pain Time Seen by Provider: 05/19/24 10:40 Source: patient Mode of arrival: ambulatory Limitations: no limitations History of Present Illness HPI narrative: This is a 58-year-old female that presents to emergency department for chest discomfort. Reports sudden onset chest pressure. Also reports epigastric pain and back pain. Reports associated nausea. Denies shortness of breath. Related Data Home Medications ?Medication ?Instructions ?Recorded ?Confirmed ?Last Taken ?Type julhkczbewgb-Wy-igah-minerals 1 tablet PO DAILY 12/25/19 12/12/23 11/26/23 History (Multiple Vitamin, Womens tablet) dicyclomine 10 mg capsule 10 mg PO DAILY 12/10/23 12/12/23 12/10/23 History Allergies Allergy/AdvReac Type Severity Reaction Status Date / Time No Known Allergies Allergy Verified 05/19/24 10:35 Review of Systems 2 Review of Systems: CONSTITUTIONAL: Denies fever CARDIOVASCULAR: Reports chest pain RESPIRATORY: Denies dyspnea. GASTROINTESTINAL: Reports abdominal pain, nausea All systems reviewed & are unremarkable except as noted in HPI and below PMFSH Past Medical History Medical History Aftercare following joint replacement surgery Contracture, left knee Diverticulitis GERD (gastroesophageal reflux disease) Osteoarthritis of both knees Osteoarthritis of left knee Osteoarthritis of right knee Surgical History Surgical History H/O: hysterectomy History of laparoscopic cholecystectomy (~1994) History of total right knee replacement (~07/03/22) History of vaginal hysterectomy (~2008) A&P Repair, TVT Status post total knee replacement, left Status post total right knee replacement Family History Family History Father Hypertension Family history of diabetes mellitus in first degree relative Family history of arthritis Mother Hypertension Family history of arthritis Sibling Family history of lung cancer Social History Social History Social History: The patient is to Brian and she has 4 children. 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 She is a lifelong nonsmoker. Her is a durable power ip technology transactions attorney. Code status full code Smoking status: Never smoker Second hand tobacco smoke exposure: No Additional smoking assessment comments: DENIES ANY FORM OF TOBACCO USE Alcohol intake: never Substance use: never Substance use type: does not use Do You Feel Safe in your Home?: Yes Lack of Transportation: No Lack of Food: Never True Current Housing: I Have Housing Concerned About Future Housing: No Difficulty Paying Gas/Electric Bills: No Difficulty Paying for Meds: No Currently Unemployed: No Education: Associate Degree Difficulty w/ Childcare or Family Care: No Living arrangements: with family Occupation/Education: occupation Additional occupation/education comments: [employer] Gender identity (if verbalized by the patient): Female Sexual Orientation (if Verbalized by the Patient): Straight or Heterosexual Spiritual care concerns: No Exam 2 Narrative: GENERAL: Uncomfortable, well-nourished, and in no acute distress. HEAD: Normocephalic, atraumatic. EYES: EOMI. ENT: Nares clear, no rhinorrhea or epistaxis. Mucous membranes moist. Oropharynx without tonsillar hypertrophy exudate or other lesions. Bilateral TMs pearly scott non-bulging NECK: Supple. No adenopathy or masses. No carotid bruits or JVD CHEST: Clear to auscultation. No respiratory distress. No wheezes rales or rhonchi HEART: Regular rate and rhythm. No murmur heard. Normal peripheral pulses. ABDOMEN: Soft, nondistended, normal active bowel sounds. Mild tenderness to palpation in the epigastrium, without guarding EXTREMITIES: Normal range of motion. No edema. SKIN: Warm, dry, no rash. NEURO: No focal deficits. Alert and oriented x3. PSYCH: Normal mood and affect Course Course Emergency Course: Patient updated on her workup. Resting comfortably currently. We did talk about admission for further cardiac rule out. Would like to trial further outpatient follow up/workup Vital Signs Vital signs: Vital Signs Temperature 97.6 F 05/19/24 10:17 Pulse Rate 74 05/19/24 10:17 Respiratory Rate 18 05/19/24 10:17 Blood Pressure 167/94 H 05/19/24 10:17 Pulse Oximetry 100 05/19/24 10:17 Oxygen Delivery Room Air 05/19/24 10:17 Temperature 97.6 F 05/19/24 10:17 Pulse Rate 79 05/19/24 15:46 Respiratory Rate 20 05/19/24 15:46 Blood Pressure 117/72 05/19/24 15:46 Pulse Oximetry 99 05/19/24 15:46 Oxygen Delivery Room Air 05/19/24 10:17 MDM - Chest Pain MDM Narrative Medical decision making narrative: Patient presents to the emergency department for chest pain, back pain, abdominal pain. She is afebrile and nontoxic appearing. Blood pressure elevated upon arrival, this down trended with management of her pain. Cbc without leukocytosis. Metabolic panel with AST that is mildly elevated. Lipase is normal. EKG without acute ST changes and baseline and 3 hour troponin are negative. CTA chest/abdomen/pelvis without dissection or aneurysm. No acute cardiopulmonary or abdominal process. Does show slight narrowing of the origin of the celiac artery with minimal poststenotic dilatation. Patient updated on her workup. Resting comfortably currently. We did talk about admission for further cardiac rule out. Would like to trial further outpatient follow up/workup. Reports her symptoms seem similar to when she has had diverticulitis in the past. The radiologist did see diverticulosis at this time on imaging without current evidence of diverticulitis. We spoke about sending antibiotics to the pharmacy and starting them for any continued/worsening pain. She will have close follow-up with her primary provider. She was given warnings to return to the ER Differential Diagnosis Differential diagnosis: Likely stable angina, atypical chest pain, costochondritis and other (GERD, esophagitis, diverticulitis, aortic dissection, muscle strain, muscle spasm) Lab Data Attestation: I reviewed the patient's lab results. 05/19/24 10:37 05/19/24 10:51 Labs: Lab Results 05/19/24 05/19/24 05/19/24 Range/Units 10:37 10:51 13:13 WBC 7.5 (4.5-10.0) K/mm3 RBC 4.87 (4.2-5.4) M/mm3 Hgb 14.4 (12.0-15.0) g/dL Hct 45.3 (37.0-47.0) % MCV 93.0 (80-100) fl MCH 29.6 (26-34) pg MCHC 31.8 L (32-36) g/dl RDW 13.7 (11.5-14.5) % Plt Count 338 (150-375) k/mm3 MPV 9.1 (7.4-10.4) fl Immature Gran % (Auto) 0.3 (0-0.5) % Neut % (Auto) 49.3 (45.5-73.1) % Lymph % (Auto) 40.0 (18.3-44.2) % Walsh % (Auto) 6.9 (2.6-8.5) % Eos % (Auto) 3.1 (0-4.4) % Baso % (Auto) 0.4 (0.2-1.2) % Lymph # (Auto) 3.00 (0.9-3.2) K/mm3 Walsh # (Auto) 0.5 (0.1-0.6) K/mm3 Eos # (Auto) 0.2 (0-0.3) K/mm3 Baso # (Auto) 0.0 (0.0-0.1) K/mm3 Abs Immat Gran (auto) 0.02 (0.00-0.031) K/mm3 Absolute Neuts (auto) 3.7 (1.3-6.7) K/mm3 Absolute Nucleated RBC 0.000 (0.0-0.012) K/mm3 Nucleated RBC % 0.0 (0.0-0.2) % PT 12.8 (11.1-14.7) Seconds INR 0.9 APTT 29.0 (22.3-36.8) Seconds Sodium 138 (137-145) mmol/L Potassium 3.7 (3.4-5.0) mmol/L Chloride 105 (98-107) mmol/L Carbon Dioxide 25 (22-30) mmol/L Anion Gap 8 (4-12) mmol/L BUN 20 H (7-17) mg/dL Creatinine 0.67 L 0.80 (0.7-1.0) mg/dL Estim Creat Clear Calc 84 71 ml/min Estimated GFR > 60 > 60 (59 - ) Glucose 102 (65-110) mg/dL Calcium 9.4 (8.4-10.2) mg/dL Total Bilirubin 0.7 (0.2-1.3) mg/dL AST 50 H (14-36) U/L ALT 25 (6-35) U/L Alkaline Phosphatase 109 (38-126) U/L Troponin I < 0.012 < 0.012 (0.000-0.034) ng/mL Total Protein 8.0 (6.3-8.2) g/dL Albumin 4.2 (3.5-5.1) g/dL Lipase 102 (23-300) U/L Imaging Data Radiologist's impression: ITS Impressions Chest/Abdomen/Pelvis CTA 05/19/24 11:00 IMPRESSION: CHEST: 1. No evidence of dissection or aneurysm. 2. No acute cardiopulmonary pathology. ABDOMEN/PELVIS: 1. No evidence of aneurysm or dissection. 2. No acute abdominal process. 3. Slight narrowing of the origin of the celiac artery with minimal post stenotic dilatation. Follow-up advised. 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 Diazepam as needed for pain. Over the counter pain medication as needed. I have sent an antibiotic to the pharmacy, you may start this for any continued/worsening abdominal pain for possible diverticulitis flare. On your imaging the radiologist mentioned some narrowing of your celiac artery, this can sometimes cause chronic abdominal pain. Follow up with your primary doctor for referral for further evaluation of this Follow up with your primary care doctor for further evaluation/management Patient Language: Swedish Prescriptions: New diazepam 5 mg tablet 5 mg PO BID PRN (Reason: muscle spasm) Qty: 10 0RF amoxicillin-pot clavulanate 875-125 mg tablet 1 tablet PO Q8H 10 Days Qty: 30 0RF No Action Multiple Vitamin, Womens Tablet 1 tablet PO DAILY dicyclomine 10 mg Capsule 10 mg PO DAILY Rx Instructions: Takes daily in AM. meloxicam 15 mg tablet See Rx Instructions .ROUTE .COMPLEX Qty: 30 0RF Dose Instruction: Take 1/2 (one-half) tablet by mouth twice daily Rx Instructions: Take 1/2 (one-half) tablet by mouth twice daily pantoprazole 40 mg tablet,delayed release (DR/EC) See Rx Instructions .ROUTE .COMPLEX Qty: 30 0RF Dose Instruction: Take 1 tablet by mouth once daily Rx Instructions: Take 1 tablet by mouth once daily in AM Follow-up/Referrals: MELISSA,Avis BHATT [Primary Care Provider] - Quality HEART score for chest pain patients History: moderately suspicious ECG: normal Age: > 45 and < 65 years Risk factors: 1 or 2 risk factors Troponin: < or = to 1x normal limit Heart score: 3
[2024-05-19] MEDS: ONDANSETRON INJ 4 MG/2 ML VIAL IV PUSH (10:46)
[2024-05-19 10:53] LABS: Estimated CRCL calculation 71 ml/min; Estimated Glomerular Filt Rate > 60
[2024-05-19 10:55] LABS: INR 0.9; Prothrombin Time 12.8 Seconds (11.1-14.7)
[2024-05-19 11:03] LABS: Alanine Aminotransferase 25 U/L (6-35); Albumin Level 4.2 g/dL (3.5-5.1); Alkaline Phosphatase 109 U/L (38-126); Anion Gap 8 mmol/L (4-12); Aspartate Amino Transferase 50 U/L (14-36); Bilirubin,Total 0.7 mg/dL (0.2-1.3); Blood Urea Nitrogen 20 mg/dL (7-17); Calcium 9.4 mg/dL (8.4-10.2); Carbon Dioxide 25 mmol/L (22-30); Chloride 105 mmol/L (98-107); Estimated CRCL calculation 84 ml/min; Estimated Glomerular Filt Rate > 60; Glucose 102 mg/dL (65-110); Lipase 102 U/L (23-300); Potassium 3.7 mmol/L (3.4-5.0); Sodium 138 mmol/L (137-145)
[2024-05-19] MEDS: MORPHINE SULFATE (*CRX) 4 MG/ML INJ IV PUSH (11:05)
[2024-05-19 11:14] LABS: Troponin I < 0.012 ng/mL (0.000-0.034)
[2024-05-19] MEDS: FAMOTIDINE 20 MG/2 ML VIAL IV PUSH (11:34)
[2024-05-19] MEDS: diazePAM INJ (*CRX) 10 MG/2 ML SYRINGE 5 MG IV PUSH (11:39)
--- NOTE | 2024-05-19 13:30 | ECG_ITS ---
Test Date: 2024-05-19 13:51:23 Measurements Intervals [place] Rate: 73 P: 44 CO: 161 QRS: 32 QRSD: 88 T: 55 QT: 380 QTc: 420 Interpretive Statements SINUS RHYTHM Compared to ECG 05/19/2024 10:29:28 No significant changes Electronically Signed On 05-19-2024 15:36:33 BODY LINER by Shefali Ragland M.D.
[2024-05-19 13:48] LABS: Troponin I < 0.012 ng/mL (0.000-0.034)
[2024-05-19] MEDS: HYDROmorphone HCL INJ (*CRX) 1 MG/ML SYR 0.5 MG IV PUSH (13:58)
== END 2024-05-19 16:45 | disposition home or self-care (01) ==
PROVIDERS: Emergency Medicine; Emergency Provider Physician Assistant; PCP Family Medicine
DX: R07.9 Chest pain, unspecified (principal); I77.4 Celiac artery compression syndrome; K21.9 Gastro-esophageal reflux disease without esophagitis; M19.90 Unspecified osteoarthritis, unspecified site; Z96.653 Presence of artificial knee joint, bilateral
CPT/HCPCS: 36415; 71275; 74174; 80053; 83690; 84484; 85025; 85610; 85730; 93005; 96374; 96375; 96376; 99284; J1171; J2270; J2405; J3360; Q9967

== ENCOUNTER 2024-10-27 14:29 | Outpatient (CLI) | payer OTHER, SELFPAY ==
--- NOTE | ~2024-10-27 | MM_ITS ---
EXAMINATION: MM screening marina BI w farshad HISTORY: Screening mammogram TECHNIQUE: Craniocaudal and mediolateral oblique 3-D tomosynthesis images were obtained and synthetic 2-D images were generated. CAD analysis was submitted and interpreted. COMPARISON: 04/03/2023, 12/21/2021, 05/25/2020 BREAST PARENCHYMAL COMPOSITION:Not Dense. The breasts are almost entirely fatty FINDINGS: There is mild bilateral distortion related to interval breast reduction surgery. There is a n asymmetry in the slightly inner central right breast on CC view. No other parenchymal abnormality t he left breast. No suspicious microcalcifications. IMPRESSION: Asymmetry in the inner, central right breast, as detailed above. Spot compression view, and possibly ultrasound, recommended for further evaluation. BI-RADS Category 0: Incomplete: Needs additional imaging evaluation. Reviewed, dictated and finalized at [facility]. IMPRESSION: Asymmetry in the inner, central right breast, as detailed above. Spot compressi on view, and possibly ultrasound, recommended for further evaluation. BI-RADS Category 0: Incomplete: Needs additional imaging evaluation.
== END 2024-10-27 14:30 | disposition home or self-care (01) ==
LOC: ANHIMG 14:31
PROVIDERS: PCP Family Medicine; Visit Provider Obstetrics & Gynecology Gynecology
DX: Z12.31 Encounter for screening mammogram for malignant neoplasm of breast (principal); R92.8 Other abnormal and inconclusive findings on diagnostic imaging of breast
CPT/HCPCS: 77063; 77067

== ENCOUNTER 2024-11-26 09:59 | Outpatient (CLI) | payer OTHER, SELFPAY ==
--- NOTE | ~2024-11-26 | MMUS_ITS ---
EXAMINATION: MM diagnostic marina RT w farshad, US breast RT limited INDICATION: 59-year old female; BI-RADS 0, callback to evaluate Right breast asymmetry. History of br east reduction surgery 2023 . COMPARISON: 10/27/2024 TECHNIQUE: Digital breast tomosynthesis ML and spot compression CC and MLO views of right breast were obtained with computer-aided detection to assist in interpretation of the study. FINDINGS: There are scattered areas of fibroglandular density. The focal asymmetry of concern in the upper inner at middle depth within the right breast persisted a s a mass. Additional focal asymmetry in the inferior medial at anterior depth persists on spot compre ssion view. Ultrasound was performed for further evaluation. RIGHT BREAST ULTRASOUND FINDINGS: Targeted evaluation of upper inner and lower inner right breast was completed. At 1:00, 4 cm from the nipple, there is hyperechoic lesion with irregular margins that measure 0.9 x 0.7 x 0.7 cm. This lesion correlates to the mammographic finding in the upper inner right breast. At 4:00, 3 cm from the nipple, there is a 0.6 x 0.5 x 0.8 cm hyperechoic lesion with angulated margin s. These finding correlates to the mammographic focal asymmetry in the lower inner breast. At 2:00, 5 cm from the nipple there is an hypoechoic circumscribed mass that measure 0.3 x 0.2 x 0.3 cm. Additional circumscribed hypoechoic mass is seen at 5:00, 7 cm from the nipple which measure 0.4 x 0.2 x 0.4 cm IMPRESSION: 1. Indeterminate hyperechoic masses at 1:00 and at 4:00 locations in the right breast. Biopsy is rec ommended. 2. Complications cysts at 2:00 and 5:00 locations in the right breast. Short-term follow-up recommen ded. RECOMMENDATIONS: Ultrasound-guided core needle biopsy of 2 masses at 1:00 and at 4:00 locations. 6 month follow-up ultrasound right breast. BI-RADS 4, SUSPICIOUS Reviewed, dictated and finalized at location B. IMPRESSION: 1. Indeterminate hyperechoic masses at 1:00 and at 4:00 locations in the right breast. Biopsy is recommended. 2. Complications cysts at 2:00 and 5:00 locations in the right breast. Short-t erm follow-up recommended. RECOMMENDATIONS: Ultrasound-guided core needle biopsy of 2 masses at 1:00 and at 4:00 locations. 6 month follow-up ultrasound right breast. BI-RADS 4, SUSPICIOUS
[2024-11-26 10:34] LABS: Hematocrit 44.5 % (37.0-47.0); Hemoglobin 14.3 g/dL (12.0-15.0); Mean Corpuscular HGB Conc 32.1 g/dl (32-36); Mean Corpuscular Hemoglobin 29.2 pg (26-34); Mean Corpuscular Volume 91.0 fl (80-100); Platelet Count Result 287 k/mm3 (150-375); Red Blood Count 4.89 M/mm3 (4.2-5.4); White Blood Count 4.7 K/mm3 (4.5-10.0)
[2024-11-26 11:02] LABS: Alanine Aminotransferase 15 U/L (6-35); Albumin Level 4.1 g/dL (3.5-5.1); Alkaline Phosphatase 103 U/L (38-126); Anion Gap 6 mmol/L (4-12); Aspartate Amino Transferase 26 U/L (14-36); Bilirubin,Total 0.4 mg/dL (0.2-1.3); Blood Urea Nitrogen 19 mg/dL (7-17); Calcium 9.3 mg/dL (8.4-10.2); Carbon Dioxide 25 mmol/L (22-30); Chloride 105 mmol/L (98-107); Cholesterol 218 mg/dL (0-200); Estimated Glomerular Filt Rate > 60; Glucose 85 mg/dL (65-110); HDL Direct 62 mg/dL; Potassium 4.2 mmol/L (3.4-5.0); Sodium 136 mmol/L (137-145); Total Protein 7.3 g/dL (6.3-8.2); Triglycerides 42 mg/dL (<150)
[2024-11-26 11:20] LABS: Free T4 Free Thyroxine 1.19 ng/dL (0.78-2.19)
[2024-11-26 11:37] LABS: Thyroid Stimulating Hormone 0.851 uIU/mL (0.465-4.680)
[2024-11-26 11:56] LABS: Vitamin B12 319.0 pg/mL (239-931)
[2024-11-26 12:12] LABS: Hemoglobin A1C 5.1 % (<5.7)
== END 2024-11-26 10:00 | disposition home or self-care (01) ==
PROVIDERS: PCP Family Medicine; Visit Provider Obstetrics & Gynecology Gynecology
DX: R92.8 Other abnormal and inconclusive findings on diagnostic imaging of breast (principal); E55.9 Vitamin D deficiency, unspecified
CPT/HCPCS: 36415; 76642; 77061; 77065; 80053; 80061; 82306; 82607; 83036; 84439; 84443; 85027; G0279

== ENCOUNTER 2024-12-04 08:13 | Outpatient (CLI) | payer OTHER, SELFPAY ==
--- NOTE | ~2024-12-04 | MMUS_ITS ---
MM post biopsy diagnostic RT, US breast bx add lesion RT, US breast biopsy RT w image EXAMINATION: US GUIDED NEEDLE BIOPSY WITH VACUUM ASSISTANCE DATE: 12/04/2024 10:37 CDT INDICATION: Right breast masses seen on prior examination. Ultrasound-guided core biopsy is requeste d to evaluate for malignancy. BREAST PARENCHYMAL COMPOSITION: TECHNIQUE AND FINDINGS: The risks and potential benefits of the procedure were discussed with the patient, and written inform ed consent was obtained. After sterile preparation of the right breast, 1% lidocaine was utilized fo r local anesthesia. 1% lidocaine with epinephrine was used for deep anesthesia. Right breast: 1:00, 4 cm from the nipple: A 10G vacuum-assisted biopsy gun needle was advanced throug h to the outer edge of the region of interest from a medial approach utilizing sonographic guidance. A total of 4 tissue core samples were obtained through the lesion. An Inrad tissue marker clip was then placed at the biopsy site. Hemostasis was achieved. Right breast: 4:00, 3 cm from the nipple: A 10G vacuum-assisted biopsy gun needle was advanced throug h to the outer edge of the region of interest from a medial approach utilizing sonographic guidance. A total of 4 tissue core samples were obtained through the lesion. An Inrad tissue marker clip was then placed at the biopsy site. Hemostasis was achieved. The patient tolerated procedure well and there was no evidence of immediate complication. The patien t was given verbal instructions partly is from the department. Right breast mammograms to document t issue marker clip placement. The tissue samples were submitted to surgical pathology for histologic a nalysis. IMPRESSION: 1. Successful ultrasound-guided vacuum-assisted biopsies of right breast masses with post procedure mammogram for marker placement. Please refer to pathology report for histologic analysis. Reviewed, dictated and finalized at location B. IMPRESSION: 1. Successful ultrasound-guided vacuum-assisted biopsies of right breast char s with post procedure mammogram for marker placement. Please refer to pathology report for histologic analysis. IMPRESSION: 1. Successful ultrasound-guided vacuum-assisted biopsies of right breast char s with post procedure mammogram for marker placement. Please refer to pathology report for histologic analysis.
--- NOTE | 2024-12-04 10:31 | S_PTH ---
PATIENT: Sarah Colón LOC: [facility] U#:[id number] AGE/SX: 59/F ROOM: RE12/04/[address]: Adry Walters MD : [id number] BED: DIS: 12/04/2024 SPEC #: [id number] RECD: 12/04/24 10:50 STATUS: KEVIN REBambi #: [id number] QIANA: 12/04/24 10:[address]: Adry Walters DEPT: [facility] Surgical RECD BY: Dagmar Mark ENTERED: 12/04/24 10:51 SP TYPE: Surgical OTHR DR: MELISSA,NOVA Albarran Tissues: A - Breast Biopsy B - Breast Biopsy Procedures: Hematoxylin and Eosin Stain Gross and Microscopic Level 4
== END 2024-12-04 08:14 | disposition home or self-care (01) ==
PROVIDERS: PCP Family Medicine; Visit Provider Surgery
DX: R92.8 Other abnormal and inconclusive findings on diagnostic imaging of breast (principal); N63.14 Unspecified lump in the right breast, lower inner quadrant; N63.12 Unspecified lump in the right breast, upper inner quadrant
CPT/HCPCS: 19083; 19084; 77065; 88305; A4648

== ENCOUNTER 2024-12-10 11:27 | Emergency (ER) | payer OTHER, SELFPAY ==
--- NOTE | ~2024-12-10 | CT_ITS ---
EXAMINATION: CT abdomen pelvis w con DATE: 12/10/2024 13:19 INDICATION: Left lower quadrant pain TECHNIQUE: Computed tomography (CT) of the abdomen and pelvis was performed with 100 cc Omnipaque 350 intravenous contrast. The dose-length product was 651.74 mGy-cm. Automated exposure control and iter ative reconstruction technique were employed. COMPARISON: CT dated 05/19/2024 FINDINGS: Trace pericardial effusion. Heart size normal. No significant pleural or pericardial effusi on. Status post cholecystectomy with expected prominence of the bile ducts. The liver, spleen, pancre as, adrenal glands and left kidney are unremarkable. There is a small low-density lesion right kidney , too small to characterize although statistically likely a cyst. There are cholecystectomy clips. Th ere is mild segmental mural thickening of the transverse, descending and proximal sigmoid colon. Ther e is colonic diverticula without evidence for diverticulitis. No abnormal pelvic masses or fluid cristino ections. IMPRESSION: 1. Segmental mural thickening of the transverse, descending and proximal sigmoid colon, suspicious fo r colitis, most likely infectious or inflammatory. Reviewed, dictated and finalized at location A. IMPRESSION: 1. Segmental mural thickening of the transverse, descending and proximal sigmoi d colon, suspicious for colitis, most likely infectious or inflammatory.
--- OUTSIDE RECORDS SUMMARY | 2024-12-10 11:29 | XMS_ITS | Encounter Summary ---
Author Organization [facility] Address [address] [place] [id number] Care Team Providers Care Coatings Inspector Name Role Phone Duncan Jacobsen MD Primary Care Provider + Encounter Details Date Type Department Care Team (Late st Contact Info) Description 04/11/2000 Abstract [facility] Conversion Md, Generic Conversion, Social History Tobacco Use Types Packs/Day Years Used Date Smoking Tobacco: Never Assessed Comments Unknown Sex and Gender Information Value Date Recorded Sex Assigned at Female 07/15/2024 4:08 PM CDT Legal Sex Female 8:15 PM CDT Gender Identity Not on file Sexual Orientation Not on file documented as of this encounter Plan of Treatment Not on file documented as of this encounter Visit Diagnoses Not on filedocumented in this encounter Additional Health Concerns Infection Onset Date Last Indicated Resolved Time COVID-19 Rule Out 04/27/2021 04/27/2021 04/27/2021 11:22 AM CYLINDER TESTER COVID-19 Rule Out 02/18/2023 02/18/2023 02/18/2023 7:29 PM CDT COVID-19 Rule Out 03/14/2023 03/14/2023 03/20/2023 7:16 AM CYLINDER TESTER COVID-19 Confirmed 03/14/2023 03/14/2023 12:32 AM CYLINDER TESTER documented as of this encounter Care Teams Coatings Inspector Relationship Specialty Start Date End Date Duncan Jacobsen MD [address] [facility] [address] [place] [address] PCP - General FAMILY PRACTICE 10/13/18 documented as of this encounter
--- OUTSIDE RECORDS SUMMARY | 2024-12-10 11:29 | XMS_ITS | Clinical Summary ---
Author Organization [facility] Address [address] [place] [address] Care Team Providers Care Gravure Press Operator Name Role Phone Duncan Jacobsen MD Primary Care Provider + Allergies No known active allergies Medications Multiple Vitamins-Mineral s (WOMENS MULTIVITAMIN OR) Take 1 tablet by mouth daily. Active azithromycin (ZITHROMAX Z-TITI) 250 MG tabletIndication s:Acute sinusitis, recurrence not specified, unspecified location Take 2 tablets by mouth on day one then 1 daily for four days. 6 tablet 07/16/19 25 Active pantoprazole EC (PROTONIX) 40 MG tabletIndication s:Gastroesophage al reflux disease without esophagitis TAKE 1 TABLET BY MOUTH EVERY DAY 90 tablet 1 11/12/19 25 Active dicyclomine (BENTYL) 20 MG tabletIndication s:Irritable bowel syndrome with both constipation and diarrhea TAKE 1 TABLET BY MOUTH TWICE A DAY 180 tablet 1 11/12/19 25 Active meloxicam (MOBIC) 15 MG tabletIndication s:Arthritis TAKE 1/2 (ONE-HALF) TABLET BY MOUTH TWICE DAILY 90 tablet 1 11/12/19 25 Active meloxicam (MOBIC) 15 MG tabletIndication s:Arthritis Take 1/2 (one-half) tablet by mouth twice daily 90 tablet 1 05/13/19 25 025 Discontinued pantoprazole EC (PROTONIX) 40 MG tabletIndication s:Gastroesophage al reflux disease without esophagitis Take 1 tablet (40 mg total) by mouth daily. 90 tablet 1 05/13/19 25 025 Discontinued dicyclomine (BENTYL) 20 MG tabletIndication s:Irritable bowel syndrome with both constipation and diarrhea Take 1 tablet (20 mg total) by mouth 2 (two) times daily. 60 tablet 5 05/13/19 25 025 Discontinued Active Problems Problem Noted Date Diagnosed Date Irritable bowel syndrome wit h both constipation and diarrhea 07/15/2024 Arthritis 07/15/2024 Gastroesophageal reflux disease without esophagi tis 07/15/2024 Diverticulosis 07/15/2024 Encounters Date Type Department Care Team Description 11/26/2024 Scan [facility] Scanned, Doc [facility] Mammogram (SCAN) 11/12/[address] [facility] [address] [place] [address] Duncan Jacobsen MD Results (Mammogram) 10/27/2024 Scan [facility] Scanned, Doc [facility] Mammogram (SCAN) from Last 3 Months Family History Medical History Relation Comments COPD Father Heart Disease Father Hypertension Mother Relation Status Comments Father Mother Alive Social History Tobacco Use Types Packs/Day Years Used Date Smoking Tobacco: Never Smokeless Tobacco: Never Tobacco Cessation:Counseling Given: No Alcohol Use Standard Drinks/Week Comments Yes 0 (1 standard drink = 0.6 oz pur e alcohol) Occasionally PHQ-2 Answer Date Recorded Patient Health Questionnaire-2 Score 0 07/15/2024 Comments No Sex and Gender Information Value Date Recorded Sex Assigned at Female 07/15/2024 4:08 PM CDT Legal Sex Female 8:15 PM CDT Gender Identity Not on file Sexual Orientation Not on file Last Filed Vital Signs Vital Sign Reading Time Taken Comments Blood Pressure 145/86 07/15/2024 4:12 PM CDT Pulse 71 07/15/2024 4:12 PM CDT Temperature 36.4 C (97.6 F) 07/15/2024 4:12 PM CDT Respiratory Rate 18 07/15/2024 4:12 PM CDT Oxygen Saturation 98% 07/15/2024 4:12 PM CDT Inhaled Oxygen Concentration - - Weight 82.2 kg (181 lb 3.2 oz) 07/15/2024 4:12 P M CDT Height 167.6 cm (5' 6) 07/15/2024 4:12 PM CDT Body Mass Index 29.25 07/15/2024 4:12 PM CDT Plan of Treatment Health Maintenance Due Date Last Done Comments Annual Physical 1969 Hepatitis C 1984 DTaP, Tdap and Td Vaccines (1 - Tdap) 1985 Hepatitis B Vaccines (1 of 3 - 19+ 3-dose series) 1985 Pneumococcal Vaccine: 50+ Years (1 of 1 - PCV) 2016 Zoster Vaccines (1 of 2) 2016 COVID-19 Vaccine (3 - season) 2024 05/13/2020, 04/22/2020 Mammogram Screening 11/26/2026 11/26/2024, 10/27/2024, 04/03/2023, Additional history exists Colorectal Cancer Screening Colonoscopy (10 Years) 11/28/2032 11/28/2022 PHQ-2 (Physician [place]) Completed 07/15/2024 Meningococcal B Vaccine Aged Out No l onger eligible based on patient's age to complete this topic Meningococcal Vaccine Aged Out No avery jonathan eligible based on patient's age to complete this topic RSV Immunizations Under 20 Months Aged Out No longer eligible based on patient's age to complete this topic Procedures Procedure Name Priority Date/Time Associated Diagnosis Comments MAMMOGRAM GENERIC (SCAN ORDER) 11/26/2024 MAMMOGRAM GENERIC (SCAN ORDER) 10/27/2024 COLONOSCOPY GENERIC (SCAN ORDER) 11/28/2022 from Last 3 Months or Most Recently Relevant to Health Maintenance Results * MAMMOGRAM GENERIC (SCAN ORDER) (11/26/2024) Only the most recent of2 resultswithin the time period is included. Anatomical Region Laterality Modality Other 11/26/2024 [facility] Scanned SCANNING Final Resu lt * COLONOSCOPY GENERIC (11/28/2022) 11/28/2022 [facility] Scanned SCANNING Final Resu lt from Last 3 Months or Most Recently Relevant to Health Maintenance Insurance [employer] Care Teams Gravure Press Operator Relationship Specialty Start Date End Date Duncan Jacobsen MD [address] [facility] [address] [place] [address] PCP - General FAMILY PRACTICE 10/13/18
[2024-12-10 11:39] VITALS: BP 143/105; PULSE 78; RESP 18; TEMP 36.2; O2SAT 100
[2024-12-10] MEDS: ONDANSETRON INJ 4 MG/2 ML VIAL IV PUSH (12:24)
[2024-12-10] MEDS: MORPHINE SULFATE (*CRX) 2 MG/ML INJ IV PUSH (12:26)
[2024-12-10 12:28] LABS: Hematocrit 45.0 % (37.0-47.0); Hemoglobin 14.6 g/dL (12.0-15.0); Immature Granulocyte Percent A 0.2 % (0-0.5); Lymphocytes Absolute Auto 2.21 K/mm3 (0.9-3.2); Mean Corpuscular HGB Conc 32.4 g/dl (32-36); Mean Corpuscular Hemoglobin 29.8 pg (26-34); Mean Corpuscular Volume 91.8 fl (80-100); Nucleated Red Blood Cells Absolute Auto 0.000 K/mm3 (0.0-0.012); Nucleated Red Blood Cells Perc 0.0 % (0.0-0.2); Platelet Count Result 302 k/mm3 (150-375); Red Blood Count 4.90 M/mm3 (4.2-5.4); White Blood Count 5.3 K/mm3 (4.5-10.0)
[2024-12-10 12:38] LABS: Alanine Aminotransferase 15 U/L (6-35); Albumin Level 4.3 g/dL (3.5-5.1); Alkaline Phosphatase 90 U/L (38-126); Anion Gap 8 mmol/L (4-12); Aspartate Amino Transferase 24 U/L (14-36); Bilirubin,Total 0.4 mg/dL (0.2-1.3); Blood Urea Nitrogen 21 mg/dL (7-17); Calcium 9.4 mg/dL (8.4-10.2); Carbon Dioxide 25 mmol/L (22-30); Chloride 107 mmol/L (98-107); Estimated CRCL calculation 78 ml/min; Estimated Glomerular Filt Rate > 60; Glucose 108 mg/dL (65-110); Lipase 97 U/L (23-300); Potassium 4.1 mmol/L (3.4-5.0); Sodium 140 mmol/L (137-145); Total Protein 7.6 g/dL (6.3-8.2)
[2024-12-10] MEDS: MORPHINE SULFATE (*CRX) 4 MG/ML INJ IV PUSH (12:52)
[2024-12-10 13:02] LABS: Add Urine Microscopic? YES; Appearance Urine Cloudy (Clear); Glucose Urine UA Negative (Negative); Leukocyte Esterase Ur 2+ LEU/UL (Negative); Need Manual Microscopic Reviewed; Nitrate Urine Negative (Negative); Non Pathogenic Casts 0-2; Specific Grav Ur 1.024 (1.001-1.035)
--- OUTSIDE RECORDS SUMMARY | 2024-12-10 13:45 | XMS_ITS | Clinical Summary ---
Author Organization [facility] Address [address] [place] [address] Care Team Providers Care Dry Room Operator Name Role Phone Duncan Jacobsen MD [...] Doc Med Group Mammogram (SCAN) 11/12/2024 Telephone [facility] [address] [place] [address] Duncan Jacobsen MD Results (Mammogram) [...] Colonoscopy (10 Years) 11/28/2032 11/28/2022 PHQ-2 (Physician [place]) Completed 07/15/2024 Meningococcal B Vaccine Aged Out [...] included. Anatomical Region Laterality Modality Other 11/26/2024 [facility] Scanned SCANNING Final Resu lt * COLONOSCOPY GENERIC (11/28/2022) 11/28/2022 [facility] Scanned SCANNING Final Resu lt from Last 3 Months or Most Recently Relevant to Health Maintenance Insurance [employer] Care Teams Dry Room Operator Relationship Specialty Start Date End Date Duncan Jacobsen MD [address] [facility] [address] [place] [address] PCP - General FAMILY PRACTICE 10/13/18
--- OUTSIDE RECORDS SUMMARY | 2024-12-10 13:45 | XMS_ITS | Encounter Summary ---
Author Organization [facility] Address [address] [place] [id number] Care Team Providers Care Business Librarian Name Role Phone Duncan Jacobsen MD Primary Care Provider + Encounter Details Date Type Department Care Team (Late st Contact Info) Description 04/11/2000 Abstract [facility] Conversion Md, Generic Conversion, Social History [...] Rule Out 04/27/2021 04/27/2021 04/27/2021 11:22 AM PERCUSSION INSTRUCTOR COVID-19 Rule Out 02/18/2023 02/18/2023 02/18/2023 7:29 PM CDT COVID-19 Rule Out 03/14/2023 03/14/2023 03/20/2023 7:16 AM PERCUSSION INSTRUCTOR COVID-19 Confirmed 03/14/2023 03/14/2023 12:32 AM PERCUSSION INSTRUCTOR documented as of this encounter Care Teams Business Librarian Relationship Specialty Start Date End Date Duncan Jacobsen MD [address] [facility] [address] [place] [address] PCP - General FAMILY PRACTICE 10/13/18 documented as of this encounter
[2024-12-10] MEDS: PROMETHAZINE HCL 25 MG/ML AMPUL 12.5 MG IV PUSH (14:20)
[2024-12-10] MEDS: KETOROLAC 30 MG/ML VIAL (*BKC) IV PUSH (14:21)
[2024-12-10] MEDS: HYDROmorphone HCL INJ (*CRX) 2 MG/ML VIAL 0.5 MG IV PUSH (14:27)
--- NOTE | 2024-12-10 15:41 | ED.GENADULT ---
HPI - General Adult General Chief complaint: Abdominal Pain Stated complaint: left abd pain Time Seen by Provider: 12/10/24 12:43 History of Present Illness HPI narrative: Patient is a 51-year-old female who presents ER with sudden onset abdominal pain. Left lower quadrant. Began today. Similar to previous diverticulitis diagnosis. No fevers or chills. Pain worse with physical movement. No alleviating factors. Tries to sit still Related Data Home Medications ?Medication ?Instructions ?Recorded ?Confirmed ?Last Taken ?Type bqdnivpeghwh-Rv-vdbw-minerals 1 tablet PO DAILY 12/25/19 12/12/23 11/26/23 History (Multiple Vitamin, Womens tablet) dicyclomine 10 mg capsule 10 mg PO DAILY 12/10/23 12/12/23 12/10/23 History Allergies Allergy/AdvReac Type Severity Reaction Status Date / Time No Known Allergies Allergy Verified 12/10/24 11:28 Review of Systems Review of Systems: All systems reviewed & are unremarkable except as noted in HPI and below Constitutional: Constitutional: Reports no additional constitutional complaints Cardiovascular: Cardiovascular: Reports no additional cardiovascular complaints Respiratory: Respiratory: Reports no additional respiratory complaints Gastrointestinal: Gastrointestinal: Reports no additional gastrointestinal complaints Genitourinary: Genitourinary: Reports no additional female genitourinary complaints [facility] Past Medical History Medical History Aftercare following joint replacement surgery Contracture, left knee Diverticulitis GERD (gastroesophageal reflux disease) Osteoarthritis of both knees Osteoarthritis of left knee Osteoarthritis of right knee Surgical History Surgical History H/O: hysterectomy History of laparoscopic cholecystectomy (~1994) History of total right knee replacement (~07/03/22) History of vaginal hysterectomy (~2008) A&P Repair, TVT Status post total knee replacement, left Status post total right knee replacement Family History Family History Father Hypertension Family history of diabetes mellitus in first degree relative Family history of arthritis Mother Hypertension Family history of arthritis Sibling Family history of lung cancer Social History Social History Social History: The patient is to Brian and she has 4 children. 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 She is a lifelong nonsmoker. Her is a durable power immigration attorney. Code status full code Smoking status: Never smoker Second hand tobacco smoke exposure: No Additional smoking assessment comments: DENIES ANY FORM OF TOBACCO USE Alcohol intake: never Substance use: never Substance use type: does not use Do You Feel Safe in your Home?: Yes Lack of Transportation: No Lack of Food: Never True Current Housing: I Have Housing Concerned About Future Housing: No Difficulty Paying Gas/Electric Bills: No Difficulty Paying for Meds: No Currently Unemployed: No Education: Associate Degree Difficulty w/ Childcare or Family Care: No Living arrangements: with family Occupation/Education: occupation Additional occupation/education comments: [employer] Gender identity (if verbalized by the patient): Female Sexual Orientation (if Verbalized by the Patient): Straight or Heterosexual Spiritual care concerns: No Exam Narrative: GENERAL: Uncomfortable-appearing, well-nourished, and in no acute distress. HEAD: Normocephalic, atraumatic. ENT: Mucous membranes moist. CHEST: Clear to auscultation. No respiratory distress. HEART: Regular rate and rhythm. Normal peripheral pulses. ABDOMEN: Soft, tender palpation left upper and left lower quadrant with guarding, nondistended. EXTREMITIES: Normal range of motion. No edema. SKIN: Warm, dry, no rash. NEURO: Alert and oriented x3. PSYCH: Normal mood and affect. Course Course Emergency Course: Pain improved after morphine/Dilaudid/Toradol. She has received antiemetics x2 as well as some Toradol. She feels comfortable going home. Labs normal. Imaging with colitis. Urinalysis with concerns for UTI. Vital Signs Vital signs: Vital Signs Temperature 97.2 F L 12/10/24 11:39 Pulse Rate 78 12/10/24 11:39 Respiratory Rate 18 12/10/24 11:39 Blood Pressure 143/105 H 12/10/24 11:39 Pulse Oximetry 100 12/10/24 11:39 Oxygen Delivery Room Air 12/10/24 11:39 Temperature 97.2 F L 12/10/24 11:39 Pulse Rate 78 12/10/24 11:39 Respiratory Rate 18 12/10/24 11:39 Blood Pressure 143/105 H 12/10/24 11:39 Pulse Oximetry 100 12/10/24 11:39 Oxygen Delivery Room Air 12/10/24 11:39 Medical Decision Making Vital Signs Vital Signs: Vital Signs Temperature 97.2 F L 12/10/24 11:39 Pulse Rate 78 12/10/24 11:39 Respiratory Rate 18 12/10/24 11:39 Blood Pressure 143/105 H 12/10/24 11:39 Pulse Oximetry 100 12/10/24 11:39 Oxygen Delivery Room Air 12/10/24 11:39 Temperature 97.2 F L 12/10/24 11:39 Pulse Rate 78 12/10/24 11:39 Respiratory Rate 18 12/10/24 11:39 Blood Pressure 143/105 H 12/10/24 11:39 Pulse Oximetry 100 12/10/24 11:39 Oxygen Delivery Room Air 12/10/24 11:39 Lab Data 12/10/24 12:16 12/10/24 12:16 Labs: Lab Results 12/10/24 Range/Units 12:16 WBC 5.3 (4.5-10.0) K/mm3 RBC 4.90 (4.2-5.4) M/mm3 Hgb 14.6 (12.0-15.0) g/dL Hct 45.0 (37.0-47.0) % MCV 91.8 (80-100) fl MCH 29.8 (26-34) pg MCHC 32.4 (32-36) g/dl RDW 13.2 (11.5-14.5) % Plt Count 302 (150-375) k/mm3 MPV 9.3 (7.4-10.4) fl Immature Gran % (Auto) 0.2 (0-0.5) % Neut % (Auto) 48.2 (45.5-73.1) % Lymph % (Auto) 41.8 (18.3-44.2) % [place] % (Auto) 6.2 (2.6-8.5) % Eos % (Auto) 3.2 (0-4.4) % Baso % (Auto) 0.4 (0.2-1.2) % Lymph # (Auto) 2.21 (0.9-3.2) K/mm3 [place] # (Auto) 0.3 (0.1-0.6) K/mm3 Eos # (Auto) 0.2 (0-0.3) K/mm3 Baso # (Auto) 0.0 (0.0-0.1) K/mm3 Abs Immat Gran (auto) 0.01 (0.00-0.031) K/mm3 Absolute Neuts (auto) 2.6 (1.3-6.7) K/mm3 Absolute Nucleated RBC 0.000 (0.0-0.012) K/mm3 Nucleated RBC % 0.0 (0.0-0.2) % Sodium 140 (137-145) mmol/L Potassium 4.1 (3.4-5.0) mmol/L Chloride 107 (98-107) mmol/L Carbon Dioxide 25 (22-30) mmol/L Anion Gap 8 (4-12) mmol/L BUN 21 H (7-17) mg/dL Creatinine 0.70 (0.7-1.0) mg/dL Estim Creat Clear Calc 78 ml/min Estimated GFR > 60 (59 - ) Glucose 108 (65-110) mg/dL Calcium 9.4 (8.4-10.2) mg/dL Total Bilirubin 0.4 (0.2-1.3) mg/dL AST 24 (14-36) U/L ALT 15 (6-35) U/L Alkaline Phosphatase 90 (38-126) U/L Total Protein 7.6 (6.3-8.2) g/dL Albumin 4.3 (3.5-5.1) g/dL Lipase 97 (23-300) U/L Urine Color Yellow (Yellow) Urine Appearance Cloudy H (Clear) Urine pH 6.5 (5.0-9.0) Ur Specific [place] 1.024 (1.001-1.035) Urine Protein Negative (Negative) mg/dL Urine Glucose (UA) Negative (Negative) mg/dL Urine Ketones Negative (Negative) mg/dL Ur Blood (Man) Negative (Negative) Urine Nitrate Negative (Negative) Urine Bilirubin Negative (Negative) Urine Urobilinogen 0.2 (<2.0) mg/dL Add Ur Microanalysis Reviewed Leukocyte Esterase Rfl 2+ H (Negative) MALA/UL Urine RBC 0-2 (0-2) /hpf Urine WBC 21-50 H (0-3) /hpf Ur Squamous Epith Cells Moderate (Few) /hpf Urine Bacteria 2+ H /hpf Urine Casts 0-2 Discharge Plan Discharge Clinical Impression: Colitis, UTI (urinary tract infection) Patient Disposition: Home Condition: Stable Instructions: Antibiotic Form, Urinary Tract Infection in Women (ED), Colitis (ED) Additional Instructions: Return to the emergency department if you develop severe abdominal pain, severe nausea and vomiting to the point where you are unable to keep down fluids, if you develop chest pain or difficulty breathing, blood in your stool, dizziness or fainting, or if you develop any other new or concerning symptoms as these could be signs of more serious medical illness. Try to stay well hydrated. Patient Language: Bengali Prescriptions: New ciprofloxacin HCl 500 mg tablet 500 mg PO Q12H Qty: 14 0RF metronidazole 500 mg tablet 500 mg PO Q8H Qty: 21 0RF dicyclomine 20 mg tablet 20 mg PO QID Qty: 20 0RF hydrocodone-acetaminophen 5-325 mg tablet 1 tablet PO Q6H PRN (Reason: pain) Qty: 10 0RF No Action Multiple Vitamin, Womens Tablet 1 tablet PO DAILY dicyclomine 10 mg Capsule 10 mg PO DAILY Rx Instructions: Takes daily in AM. amoxicillin-pot clavulanate 875-125 mg tablet 1 tablet PO Q8H 10 Days Qty: 30 0RF meloxicam 15 mg tablet See Rx Instructions .ROUTE .COMPLEX Qty: 30 0RF Dose Instruction: Take 1/2 (one-half) tablet by mouth twice daily Rx Instructions: Take 1/2 (one-half) tablet by mouth twice daily pantoprazole 40 mg tablet,delayed release (DR/EC) See Rx Instructions .ROUTE .COMPLEX Qty: 30 0RF Dose Instruction: Take 1 tablet by mouth once daily Rx Instructions: Take 1 tablet by mouth once daily in AM Follow-up/Referrals: MELISSA,Avis BHATT [Primary Care Provider] - 1 Week
== END 2024-12-10 16:10 | disposition home or self-care (01) ==
PROVIDERS: Emergency Provider Emergency Medicine; PCP Family Medicine
DX: K52.9 Noninfective gastroenteritis and colitis, unspecified (principal); N39.0 Urinary tract infection, site not specified; K21.9 Gastro-esophageal reflux disease without esophagitis; M17.0 Bilateral primary osteoarthritis of knee; Z96.653 Presence of artificial knee joint, bilateral; Z90.710 Acquired absence of both cervix and uterus; Z90.49 Acquired absence of other specified parts of digestive tract
CPT/HCPCS: 36415; 74177; 80053; 81001; 83690; 85025; 96374; 96375; 99284; J1171; J1885; J2270; J2405; J2550; Q9967